=== PATIENT | male | born 1955 | race Caucasian/White ===

== ENCOUNTER 2017-12-08 17:14 | Observation (INO) ==
[2017-12-08 17:34] LABS: Appearance,Urine CLEAR (Clear); Blood, Urine 3+ (Negative); Color,Urine YELLOW (Yellow); Glucose,Urine (UA) Negative (Negative); Ketones,Urine TRACE (Negative); Leukocyte Esterase,Urine Negative (Negative); Microscopic, Urine URINE MICROSCOPIC (MICROSCOPIC); PH,Urine 5.5 (5.0-8.5); Protein,Urine TRACE (Negative); Specific Gravity, Urine 1.025 (1.005-1.030)
[2017-12-08 17:38] LABS: Bilirubin,Urine Negative (Negative)
--- NOTE | 2017-12-08 17:53 | Emergency Department Note ---
ED Disposition Clinical Impression: Colitis, Hypokalemia Disposition: Still a Patient Condition on Discharge: Fair Instructions: DI for Acute Abdomen - Critical Care Critical Care Time: No Attestation: On 12/08/17, the high probability of a clinically significant, sudden or life threatening deterioration of the following system(s) required my full and direct attention, intervention and personal management. The time I documented below is in addition to time spent performing reported procedures but includes the following listed in this critical care notation. Medical Decision Making - Geoff Inquiry Pt receiving controlled substance: Yes Geoff was queried for this patient: Yes Reference #:: [id number] Risks and benefits of using a controlled substance: were not discussed with pt by me Comment: 0 rxs. Vital Signs: 12/08/17 17:15 12/08/17 17:45 12/08/17 18:15 Temperature 98.5 F Temperature Source Oral Pulse Rate [Right Radial] 92 H 80 77 Respiratory Rate 24 26 H 26 H Blood Pressure [Right Arm] 143/99 146/78 132/65 Blood Pressure Mean [Right Arm] 113 100 87 Blood Pressure Source [Right Arm] Automatic Cuff Automatic Cuff Automatic Cuff Blood Pressure Position [Right Arm] Sitting Sitting 02 Sat by Pulse Oximetry 98 97 98 Oxygen Delivery Method Room Air Room Air Room Air 12/08/17 19:47 Temperature Temperature Source Pulse Rate [Right Radial] 74 Respiratory Rate 17 Blood Pressure [Right Arm] 130/80 Blood Pressure Mean [Right Arm] 96 Blood Pressure Source [Right Arm] Blood Pressure Position [Right Arm] 02 Sat by Pulse Oximetry 98 Oxygen Delivery Method Room Air - Lab Data Lab Results 12/08/17 17:28: Urine Color Yellow, Urine Appearance Clear, Urine pH 5.5, Ur Specific [place] 1.025, Urine Protein Trace, Urine Glucose (UA) Negative, Urine Ketones Trace, Urine Blood 3+, Urine Nitrate Negative, Urine Bilirubin Negative , Urine Urobilinogen 2.0, Ur Leukocyte Esterase Negative, Urine RBC 3-5, Urine WBC 3-5, Ur Squamous Epith Cells 3-5, Urine Bacteria 1+, Urine Mucus 4+ 12/08/17 17:40: WBC 6.6, RBC 5.87, Hgb 19.6 H*, Hct 58.2 H, MCV 99.0 H, MCH 33.1 H, MCHC 33.4, RDW 14.9, Plt Count 353, MPV 7.8, Neut % (Auto) 64.2, Lymph % (Auto) 24.2, [place] % (Auto) 9.3, Eos % (Auto) 1.6, Baso % (Auto) 0.8, Neut # ( Auto) 4.2, Lymph # (Auto) 1.6, [place] # (Auto) 0.6, Eos # (Auto) 0.1, Baso # (Auto ) 0.1 12/08/17 17:40: Sodium 138, Potassium 2.1 L*, Chloride 96 L, Carbon Dioxide 35 H , Anion Gap 9.1, BUN 11, Creatinine 0.92, Estimated Creat Clear 60, Estimated GFR 84, Est GFR ( Amer) 101, Glucose 134 H, Calcium 9.5, Total Bilirubin 1.2 H, AST 11 L, ALT 15, Alkaline Phosphatase 118 H, Total Protein 7.8, Albumin 3.5, Globulin 4.3 H, Albumin/Globulin Ratio 0.8 L, Lipase 181 Result diagrams: 12/08/17 17:40 12/08/17 17:40 Orders (Tests/Meds): ED MEDICATIONS Generic Name Dose Route Start Last Admin Trade Name Freq PRN Reason Stop Dose Admin Levofloxacin/Dextrose 750 mg in 150 mls @ 100 mls/hr 12/08/17 20:30 Levofloxacin 750mg/150ml Premix IV 12/22/17 20:29 Q24H MAMI Protocol Metronidazole 100 mls @ 100 mls/hr 12/08/17 20:30 Flagyl 500mg/100ml Ivpb IV 12/22/17 20:29 Q8H MAMI Protocol Discontinued Medications Generic Name Dose Route Start Last Admin Trade Name Freq PRN Reason Stop Dose Admin Potassium Chloride/Water 100 mls @ 50 mls/hr 12/08/17 18:22 12/08/17 18:23 Potassium Chloride 20meq/100ml Ivpb IV 12/08/17 20:21 50 mls/hr ONCE ONE Administration Iopamidol 75 ml 12/08/17 19:14 12/08/17 19:15 [id number]; 75ml Vial IV 12/08/17 19:15 75 ml ONCE ONE Administration Morphine Sulfate 4 mg 12/08/17 18:03 12/08/17 18:23 Morphine 4mg/Ml Syringe IV 12/08/17 18:04 4 mg ONCE ONE Administration Morphine Sulfate 4 mg 12/08/17 19:49 12/08/17 20:01 Morphine 4mg/Ml Syringe IV 12/08/17 19:50 4 mg ONCE ONE Administration Ondansetron HCl 4 mg 12/08/17 18:03 12/08/17 18:23 Zofran 4mg/2ml Vial IV 12/08/17 18:04 4 mg ONCE ONE Administration Ondansetron HCl 4 mg 12/08/17 19:49 12/08/17 20:01 Zofran 4mg/2ml Vial IV 12/08/17 19:50 4 mg ONCE ONE Administration Potassium Chloride/Water 20 meq 12/08/17 18:02 Potassium Chloride 20meq/100ml Ivpb IV 12/08/17 18:03 ONCE ONE Sodium Chloride 1,000 ml 12/08/17 18:02 12/08/17 18:23 Sod Chlor 0.9% 1000ml Bag IV 12/08/17 18:03 1,000 ml BOLUS ONE Administration Sodium Chloride 10 ml 12/08/17 19:14 12/08/17 19:15 Rad-Saline Flush 10ml Syringe IV 12/08/17 19:15 10 ml ONCE ONE Administration ORDERS Category Date Time Status CT abdomen pelvis w con Stat Cat Scan 12/08/17 18:03 Taken - CT Data CT Scan: Abdomen, Pelvis Time Received: 20:[address] Reviewed: Yes: I have viewed the radiologist's interpretation Findings Narrative: CT scan interpreted by [facility] radiologist. Faxed report received and reviewed: Moderate wall thickening of the mid and distal sigmoid colon, with minimal adjacent associated inflammatory stranding, most compatible with infectious, inflammatory colitis. Minimal diverticulitis possible. No perforation or abscess. - Physician Consults Physician Consulted: Nasra Time: 20:23 Reason -: Admission Comment/Response: Agrees to admit the patient to the hospital. We discussed the patient's clinical information, including history, exam, laboratory and radiology results and ED course. Per hospital procedure, I will write temporary bridge inpatient orders on the patient. Specific orders requested by the admitting physician: Antibiotics, IV fluids with potassium, recheck potassium in the morning General Adult HPI - General Chief complaint: Abdominal Pain Stated complaint: lower stomach Time Seen by Provider: 12/08/17 17:52 Mode of Arrival: Ambulatory Limitations: No Limitations Description of Symptoms (Recalled from ER Triage Doc. by RN): lower pelvic pain for 20 days bilaterally and more so on right. hasn't eating in 10 days. when he eats lower abd/pelvic hurts worse. also reports clumps of blood in stool. pt adds more complaints with each question he is asked about his history. - History of Present Illness HPI narrative: Suprapubic abdominal pain for 20 days. States unable to eat anything for 10 days. Pain radiates to his upper abdomen. Nausea but says that he cannot vomit because he does not have anything on his stomach. Difficulty urinating and having bowel movements. Says that when he does have bowel movements and has blood in it. No fever noted. States he does not have a PCP. He used to see Dr. Reynolds, but says that Dr. Reynolds is here in [place] and he lives in [place] and cannot get to him. - Related Data Allergies Allergy/AdvReac Type Severity Reaction Status Date / Time aspirin [ASPIRIN] Allergy Unknown UNKNOWN Verified 12/08/17 17:26 [facility] History I have reviewed the patient's past medical history: Yes - Social History Smoking Status: Current every day smoker Tobacco Type: cigarettes # Packs/Day (cigarettes): 2 Alcohol Intake: never - Psychiatric History Expresses thoughts of harming self/others: None Suicide Plan Description: No Plan ROS Obtained: Yes All systems reviewed & no additional complaints - Constitutional Constitutional: Denies fever(s), Reports poor appetite - Cardiovascular Cardiovascular: Denies chest pain - Respiratory Respiratory: No dyspnea - Gastrointestinal Gastrointestingal: Reports: abdominal pain, bright red blood in stools, nausea. Denies: vomiting - Genitourinary Male Genitourinary: Reports difficulty urinating Physical Exam - General General appearance: alert - Head Head exam: atraumatic, normocephalic, normal inspection - Eye Eye exam: Present: normal appearance, PERRL, EOMI - ENT ENT exam: Present: normal exam, normal oropharynx, mucous membranes moist, TM's normal bilaterally, normal external ear exam - Neck Neck exam: Present: normal inspection, full ROM, trachea midline. Absent: meningismus, lymphadenopathy - Chest Chest inspection: Present: normal inspection, symmetric chest wall rise. Absent : tenderness - Respiratory Respiratory exam: Present: normal lung sounds bilaterally. Absent: respiratory distress - Cardiovascular Cardiovascular exam: Present: regular rate, normal rhythm. Absent: JVD - Abdominal Exam Abdominal exam: Present: soft, tenderness, normal bowel sounds. Absent: distention, guarding Abdominal tenderness: Present: diffuse - Extremities Exam Extremities exam: Present: normal inspection, full ROM, normal capillary refill. Absent: calf tenderness - Back Exam Back exam: Present: normal inspection. Absent: tenderness - Neurological Exam Neurological exam: Present: alert, oriented X3 - Psychiatric Psychiatric exam: Present: normal affect, normal mood - Skin Skin exam: Present: warm, dry, intact, normal color
[2017-12-08 17:58] LABS: Basophils # 0.1 K/mm3 (0-0.2); Basophils % 0.8 % (0.1-2.0); Eosinophils # 0.1 K/mm3 (0.0-0.4); Eosinophils % 1.6 % (0.1-12.0); Hematocrit 58.2 % (42.0-52.0); Lymphocytes # 1.6 K/mm3 (0.7-4.5); Lymphocytes % 24.2 K/mm3 (10-50); Mean Corpuscular HGB Conc 33.4 g/dL (31.8-35.4); Mean Corpuscular Hemoglobin 33.1 pg (27.0-31.2); Mean Platelet Volume 7.8 fl (7.4-10.4); Monocytes # 0.6 K/mm3 (0.1-1.0); Monocytes % 9.3 % (1.7-9.3); Neutrophils # 4.2 K/mm3 (1.8-7.8); Neutrophils % 64.2 % (37.0-80.0); Platelet Count 353 K/mm3 (142-424); Red Blood Count 5.87 M/mm3 (4.60-6.20); Red Cell Distribution Width 14.9 % (11.5-17.5); White Blood Count 6.6 K/mm3 (4.8-10.8)
[2017-12-08 17:59] LABS: Albumin Level 3.5 gm/dL (3.4-5.0); Albumin/Globulin Ratio 0.8 (1.1-1.8); Anion Gap 9.1 mEq/L (5-15); Bilirubin,Total 1.2 mg/dL (0.2-1.0); Calcium 9.5 mg/dL (8.5-10.1); Globulin 4.3 gm/dl (1.3-3.2); Total Protein,Serum 7.8 gm/dL (6.4-8.2)
[2017-12-08 18:01] LABS: Potassium 2.1 mmoL/L (3.5-5.1)
[2017-12-08 18:06] LABS: Hemoglobin 19.6 g/dL (14.1-18.0)
[2017-12-08 18:31] LABS: Bacteria,Urine 1+ /lpf; Mucus,Urine 4+ /lpf
[2017-12-09 08:31] LABS: Anion Gap 6.6 mEq/L (5-15); Calcium 8.6 mg/dL (8.5-10.1)
[2017-12-09 08:44] LABS: Potassium 2.6 mmoL/L (3.5-5.1)
--- NOTE | 2017-12-09 08:47 | History & Physical Report ---
*Admission Date: 12/09/17 <Jessica Hawley 12/09/17 08:59> *Chief complaint: Abdominal pain <Jessica Hawley 12/09/17 08:59> *History of present illness: Mr. Lu is a 62-year-old male who presented to [facility] with worsening abdominal pain, nausea, and some vomiting. He states he has had the abdominal pain for about 20 days has been worse the last 10 days. Not been able to to eat for the last 10 days but is able to retain fluids. He has had a decrease in his urinary output. He states his bowels did move on 12/07/2017 and he has a small stool this a.m. He describes it as diarrhea. Denies having a fever or any upper respiratory symptoms. He describes hematochezia on occasion. He denies hematemesis. He has had an EGD and colonoscopy per Dr. Newton several years ago which did indicate hiatal hernia and diverticulosis. In the emergency room with evaluation with CT scan he was felt to have colitis and was admitted for further evaluation and treatment. Final reading of the CT scan is pending. This a.m. pain is better. Is not nauseated and has not vomited. He is taking clear liquids without difficulty. He states he has voided without problems since admission. <Jessica Hawley 12/09/17 09:06> [facility] History Medical History: Reports:: Chronic Obstructive Pulmonary Disease (COPD), Coronary Artery Disease, Depression, Gastroesophageal Reflux Disease(GERD), Hiatal Hernia, Migraine Denies:: Cancer, Diabetes Mellitus Type 1, Diabetes Mellitus Type 2, MRSA, Seizures <ChandanJessica 12/09/17 08:59> Other Medical History: Reports: Arthritis <HawleyJessica 12/09/17 08:59> Other Surgeries: Yes: No Previous Surgery <Jessica Hawley 12/09/17 08:59> Amputation: No <ChandanJessica 12/09/17 08:59> - *Social History Educational Level: Attended High School <Hawley,Jessica 12/09/17 08:59> Smoking Status: Current every day smoker <Jessica Hawley 12/09/17 08:59> Tobacco Type: cigarettes <Jessica Hawley 12/09/17 08:59> # Packs/Day (cigarettes): 2 <Jessica Hawley 12/09/17 08:59> #Yrs smoked (if former smoker): 45 <ChandanJessica 12/09/17 08:59> Alcohol Intake: current <Jessica Hawley 12/09/17 08:59> Alcohol Intake Frequency:: a few times a week <ChandanJessica Nichol 12/09/17 08:59> Occupational Status: disabled <HawleyJessica Nichol 12/09/17 08:59> Housing: apartment <ChandanJessica Gandara 12/09/17 08:59> Household Members: none <HawleyJessica Gandara 12/09/17 08:59> - Psychiatric History Expresses thoughts of harming self/others: None <Hawley,Jessica - 12/09/17 08: 59> Suicide Plan Description: No Plan <Hawley,Jessica 12/09/17 08:59> *Family Hx:: Unable to obtain (Patient does not know family history) <Jessica Hawley 12/09/17 08:59> Review of Systems - Constitutional Denies fever(s) <HawleyJessica 12/09/17 08:59> - ENT Denies dizziness, Denies ear pain, Denies nasal congestion, Denies sore throat <Hawley,Jessica 12/09/17 08:59> - *Cardiovascular Denies chest pain, Denies shortness of breath, Denies generalized swelling, Denies leg swelling <Jessica Hawley 12/09/17 08:59> - *Respiratory Reports cough, Denies shortness of breath <Hawley,Jessica 12/09/17 08:59> Comments: Daily sputum production <Hawley,Jessica 12/09/17 08:59> - *Gastrointestinal Reports abdominal pain, Reports change in bowel habits, Reports change in stools , Reports constipation, Reports nausea, Reports vomiting, Denies heartburn, Denies excessive passing of gas, Denies vomiting blood <Hawley,Jessica 08:59> - *Genitourinary Comments: Decrease in urinary output <Jessica Hawley 12/09/17 08:59> - *Musculoskeletal Reports joint pain <Jessica Hawley 12/09/17 08:59> Comments: Uses a cane at times for stability <Jesisca Hawley - 12/09/17 08:59> - *Neurologic Denies confusion, Denies seizure-like activity, Denies dizziness, Denies frequent falls <Jessica Hawley - 12/09/17 08:59> - Psychiatric Reports depression <Jessica Hawley Nichol 12/09/17 08:59> Meds Home Medications Medication Instructions Recorded Confirmed Type No Known Home Medications 12/09/17 12/09/17 History <NasraOtto Angel - 12/09/17 10:23> Allergies Allergy/AdvReac Type Severity Reaction Status Date / Time aspirin [ASPIRIN] Allergy Unknown UNKNOWN Verified 12/08/17 17:26 <Otto Hammonds - 12/09/17 10:23> Exam Vital signs and Labs for Last 24 Hours: Temp Pulse Resp BP Pulse Ox 97.9 F 76 18 121/90 93 L 12/09/17 08:00 12/09/17 08:00 12/09/17 08:00 12/09/17 08:00 12/09/17 08:00 Laboratory Results - last 24 hr 12/08/17 17:28: Urine Color Yellow, Urine Appearance Clear, Urine pH 5.5, Ur Specific [place] 1.025, Urine Protein Trace, Urine Glucose (UA) Negative, Urine Ketones Trace, Urine Blood 3+, Urine Nitrate Negative, Urine Bilirubin Negative , Urine Urobilinogen 2.0, Ur Leukocyte Esterase Negative, Urine RBC 3-5, Urine WBC 3-5, Ur Squamous Epith Cells 3-5, Urine Bacteria 1+, Urine Mucus 4+ 12/08/17 17:40: WBC 6.6, RBC 5.87, Hgb 19.6 H*, Hct 58.2 H, MCV 99.0 H, MCH 33.1 H, MCHC 33.4, RDW 14.9, Plt Count 353, MPV 7.8, Neut % (Auto) 64.2, Lymph % (Auto) 24.2, [place] % (Auto) 9.3, Eos % (Auto) 1.6, Baso % (Auto) 0.8, Neut # ( Auto) 4.2, Lymph # (Auto) 1.6, [place] # (Auto) 0.6, Eos # (Auto) 0.1, Baso # (Auto ) 0.1 12/08/17 17:40: Sodium 138, Potassium 2.1 L*, Chloride 96 L, Carbon Dioxide 35 H , Anion Gap 9.1, BUN 11, Creatinine 0.92, Estimated Creat Clear 60, Estimated GFR 84, Est GFR ( Amer) 101, Glucose 134 H, Calcium 9.5, Total Bilirubin 1.2 H, AST 11 L, ALT 15, Alkaline Phosphatase 118 H, Total Protein 7.8, Albumin 3.5, Globulin 4.3 H, Albumin/Globulin Ratio 0.8 L, Lipase 181 12/09/17 07:25: Sodium 137, Potassium 2.6 L* D, Chloride 100, Carbon Dioxide 33 H, Anion Gap 6.6, BUN 8 D, Creatinine 0.80, Estimated Creat Clear 60, Estimated GFR 98, Est GFR ( Amer) 119, Glucose 125 H, Calcium 8.6 <Otto Hammonds - 12/09/17 10:23> Temp Pulse Resp BP Pulse Ox 97.9 F 76 18 121/90 93 L 12/09/17 08:00 12/09/17 08:00 12/09/17 08:00 12/09/17 08:00 12/09/17 08:00 Laboratory Results - last 24 hr 12/08/17 17:28: Urine Color Yellow, Urine Appearance Clear, Urine pH 5.5, Ur Specific [place] 1.025, Urine Protein Trace, Urine Glucose (UA) Negative, Urine Ketones Trace, Urine Blood 3+, Urine Nitrate Negative, Urine Bilirubin Negative , Urine Urobilinogen 2.0, Ur Leukocyte Esterase Negative, Urine RBC 3-5, Urine WBC 3-5, Ur Squamous Epith Cells 3-5, Urine Bacteria 1+, Urine Mucus 4+ 12/08/17 17:40: WBC 6.6, RBC 5.87, Hgb 19.6 H*, Hct 58.2 H, MCV 99.0 H, MCH 33.1 H, MCHC 33.4, RDW 14.9, Plt Count 353, MPV 7.8, Neut % (Auto) 64.2, Lymph % (Auto) 24.2, [place] % (Auto) 9.3, Eos % (Auto) 1.6, Baso % (Auto) 0.8, Neut # ( Auto) 4.2, Lymph # (Auto) 1.6, [place] # (Auto) 0.6, Eos # (Auto) 0.1, Baso # (Auto ) 0.1 12/08/17 17:40: Sodium 138, Potassium 2.1 L*, Chloride 96 L, Carbon Dioxide 35 H , Anion Gap 9.1, BUN 11, Creatinine 0.92, Estimated Creat Clear 60, Estimated GFR 84, Est GFR ( Amer) 101, Glucose 134 H, Calcium 9.5, Total Bilirubin 1.2 H, AST 11 L, ALT 15, Alkaline Phosphatase 118 H, Total Protein 7.8, Albumin 3.5, Globulin 4.3 H, Albumin/Globulin Ratio 0.8 L, Lipase 181 <Jessica Hawley 12/09/17 08:59> I & O for Last 24 hours: Intake & Output 12/06/17 12/07/17 12/08/17 12/09/17 11:59 11:59 11:59 11:59 Intake Total 1440 / 1440 Balance 1440 / 1440 Weight 120 lb 7 oz <Otto Hammonds - 12/09/17 10:23> Intake & Output 12/06/17 12/07/17 12/08/17 12/09/17 11:59 11:59 11:59 11:59 Intake Total 1440 / 1440 Balance 1440 / 1440 Weight 120 lb 7 oz <Jessica Hawley 12/09/17 08:59> Radiology Reports for the Last 24 Hours: Results of CT of the abdomen and pelvis are pending <Jessica Hawley 12/09/17 08:59> - Constitutional no acute distress, thin <Jessica Hawley 12/09/17 08:59> Comments: Sitting up in the bed eating liquid diet. Appears comfortable <Jessica Hawley 12/09/17 08:59> - *Routine HEENT Exam Head: Present: normocephalic, atraumatic <Jessica Hawley 12/09/17 08:59> Eye: Present: PERRL <Jessica Hawley 12/09/17 08:59> ENT: Present: mucous membranes moist <Jessica Hawley 12/09/17 08:59> - *Routine Neck Exam Present: supple. Absent: carotid bruit, lymphadenopathy, thyromegaly <Jessica Hawley 12/09/17 08:59> - *Routine Respiratory Exam Present: CTA bilaterally (Anteriorly and posteriorly; diminished breath sounds posteriorly) <Jessica Hawley 12/09/17 08:59> - *Routine Cardiovascular Exam Present: RRR <Jessica Hawley 12/09/17 08:59> - *Routine Abdominal Exam Present: soft, normoactive bowel sounds, tenderness (Lower abdomen and right upper quadrant) <Jessica Hawley 12/09/17 08:59> - *Routine Extremities Exam Absent: edema, tenderness <Jessica Hawley 12/09/17 08:59> - *Routine Neurological Exam Present: alert, oriented X3 <Jessica Hawley 12/09/17 08:59> H&P: Result - Labs Labs: Short CBC 12/08/17 Range/Units 17:40 WBC 6.6 (4.8-10.8) K/mm3 Hgb 19.6 H* (14.1-18.0) g/dL Hct 58.2 H (42.0-52.0) % Plt Count 353 (142-424) K/mm3 [facility] 12/08/17 12/09/17 17:40 07:25 Sodium 138 137 Potassium 2.1 L* 2.6 L* D Chloride 96 L 100 Carbon Dioxide 35 H 33 H BUN 11 8 D Creatinine 0.92 0.80 Glucose 134 H 125 H Calcium 9.5 8.6 Liver Function 12/08/17 Range/Units 17:40 Total Bilirubin 1.2 H (0.2-1.0) mg/dL AST 11 L (15-37) U/L ALT 15 (12-78) U/L Alkaline Phosphatase 118 H (46-116) U/L Albumin 3.5 (3.4-5.0) gm/dL Urine 12/08/17 Range/Units 17:28 Urine Color Yellow (Yellow) Urine Appearance Clear (Clear) Urine pH 5.5 (5.0-8.5) Ur Specific [place] 1.025 (1.005-1.030) Urine Protein Trace (Negative) Urine Glucose (UA) Negative (Negative) <Otto Hammonds - 12/09/17 10:23> Short CBC 12/08/17 Range/Units 17:40 WBC 6.6 (4.8-10.8) K/mm3 Hgb 19.6 H* (14.1-18.0) g/dL Hct 58.2 H (42.0-52.0) % Plt Count 353 (142-424) K/mm3 BMP 12/08/17 17:40 Sodium 138 Potassium 2.1 L* Chloride 96 L Carbon Dioxide 35 H BUN 11 Creatinine 0.92 Glucose 134 H Calcium 9.5 Liver Function 12/08/17 Range/Units 17:40 Total Bilirubin 1.2 H (0.2-1.0) mg/dL AST 11 L (15-37) U/L ALT 15 (12-78) U/L Alkaline Phosphatase 118 H (46-116) U/L Albumin 3.5 (3.4-5.0) gm/dL Urine 12/08/17 Range/Units 17:28 Urine Color Yellow (Yellow) Urine Appearance Clear (Clear) Urine pH 5.5 (5.0-8.5) Ur Specific [place] 1.025 (1.005-1.030) Urine Protein Trace (Negative) Urine Glucose (UA) Negative (Negative) <ChandanJessica - 12/09/17 08:59> Assessment and Plan (1) Colitis Current visit: Yes Status: Acute Category: Medical Code(s): K52.9 - Noninfective gastroenteritis and colitis, unspecified (2) Hypokalemia Current visit: Yes Status: Acute Category: Medical Code(s): E87.6 - Hypokalemia (3) Tobacco abuse Current visit: Yes Status: Chronic Category: Medical Code(s): Z72.0 - Tobacco use (4) COPD (chronic obstructive pulmonary disease) Current visit: Yes Status: Chronic Category: Medical Code(s): J44.9 - Chronic obstructive pulmonary disease, unspecified (5) Polycythemia Current visit: Yes Status: Chronic Category: Medical Code(s): D75.1 - Secondary polycythemia <Otto Hammonds - 12/09/17 10:23> (1) Colitis Current visit: Yes Status: Acute Category: Medical Code(s): K52.9 - Noninfective gastroenteritis and colitis, unspecified (2) Hypokalemia Current visit: Yes Status: Acute Category: Medical Code(s): E87.6 - Hypokalemia (3) Tobacco abuse Current visit: Yes Status: Chronic Category: Medical Code(s): Z72.0 - Tobacco use (4) COPD (chronic obstructive pulmonary disease) Current visit: Yes Status: Chronic Category: Medical Code(s): J44.9 - Chronic obstructive pulmonary disease, unspecified <Jessica Hawley - 12/09/17 09:05> - Assessment and plan all Dx Assessment and Plan for all problems:: Patient seen and examined. Appears comfortable. Polycythemia likely related to his COPD and hemoconcentration. Will repeat CBC in AM after additional hydration. Serum K+ has improved to 2.6. Will continue oral replacement of KCL. Maintain clear liquid diet and continue current antibiotics for his colitis. <Otto Hammonds - 12/09/17 10:23> Labs and CT results are pending. We will continue with GI rest and IV fluids for now since patient is feeling better. <Jessica Hawley - 12/09/17 08:59>
--- NOTE | 2017-12-09 11:40 | Pharmacy Consult Notes ---
[facility] Pharmacy VTE Monitoring - Patient Demographics Admission date: 12/08/17 Report Date: 12/09/17 Time: 11:40 Allergies/Adverse Reactions: Patient Allergies aspirin [ASPIRIN] Allergy (Unknown, Verified 12/08/17 17:26) UNKNOWN Height: 1.63 m Weight: 54.63 kg Patient Problems: Current Active Problems Colitis (Acute) Hypokalemia (Acute) Tobacco abuse (Chronic) COPD (chronic obstructive pulmonary disease) (Chronic) Polycythemia (Chronic) - VTE Risk Labs: VTE Related Lab Results Hgb 19.6 g/dL (14.1-18.0) H* 12/08/17 17:40 Hct 58.2 % (42.0-52.0) H 12/08/17 17:40 Plt Count 353 K/mm3 (142-424) 12/08/17 17:40 BUN 8 mg/dL (7-18) D 12/09/17 07:25 Creatinine 0.80 mg/dL (0.70-1.30) 12/09/17 07:25 Estimated Creat Clear 60 mL/min (0-300) 12/09/17 07:25 Was VTE Risk Assessment Performed: Yes VTE Score: 3 VTE Risk Level: Low Risk - Prophylaxis VTE Prophylaxis Ordered?: Yes Types of VTE Prophylaxis: TEDS Knee High Location of Applied Device: Bilateral Lower Extremeties
[2017-12-10 06:50] LABS: Basophils % 0.2 % (0.1-2.0); Eosinophils # 0.1 K/mm3 (0.0-0.4); Eosinophils % 0.8 % (0.1-12.0); Hematocrit 48.4 % (42.0-52.0); Lymphocytes # 0.4 K/mm3 (0.7-4.5); Lymphocytes % 3.7 K/mm3 (10-50); Mean Corpuscular HGB Conc 33.1 g/dL (31.8-35.4); Mean Corpuscular Hemoglobin 33.6 pg (27.0-31.2); Mean Corpuscular Volume 101.5 fl (80-94); Mean Platelet Volume 7.9 fl (7.4-10.4); Monocytes # 0.5 K/mm3 (0.1-1.0); Monocytes % 4.5 % (1.7-9.3); Neutrophils # 9.8 K/mm3 (1.8-7.8); Neutrophils % 90.8 % (37.0-80.0); Platelet Count 288 K/mm3 (142-424); Red Blood Count 4.77 M/mm3 (4.60-6.20); Red Cell Distribution Width 14.5 % (11.5-17.5); White Blood Count 10.8 K/mm3 (4.8-10.8)
[2017-12-10 07:05] LABS: Anion Gap 12.8 mEq/L (5-15); Calcium 8.3 mg/dL (8.5-10.1); Potassium 3.8 mmoL/L (3.5-5.1)
--- NOTE | 2017-12-10 08:22 | Progress Note ---
<Tiffanie Dela Cruz - Last Filed: 12/10/17 08:19> Internal Medicine - PN: Subj *Date: 12/10/17 *Time: 08:19 Interval history: Pt states he is having severe lower abdominal pain today. He states in the middle of the night he had an episode of diarrhea and his stomach has been cramping ever since. He states the pain medicine is not helping. He has also been more short of breath and wants his inhalers. Exam Vital signs and Labs for Last 24 Hours: Temp Pulse Resp BP Pulse Ox 98.0 F 62 16 131/79 98 12/10/17 04:00 12/10/17 04:00 12/10/17 04:00 12/10/17 04:00 12/10/17 04:00 Laboratory Results - last 24 hr 12/09/17 07:25: Sodium 137, Potassium 2.6 L* D, Chloride 100, Carbon Dioxide 33 H, Anion Gap 6.6, BUN 8 D, Creatinine 0.80, Estimated Creat Clear 60, Estimated GFR 98, Est GFR ( Amer) 119, Glucose 125 H, Calcium 8.6 12/10/17 06:35: WBC 10.8 D, RBC 4.77, Hgb 16.0, Hct 48.4, MCV 101.5 H, MCH 33.6 H, MCHC 33.1, RDW 14.5, Plt Count 288, MPV 7.9, Neut % (Auto) 90.8 H, Lymph % (Auto) 3.7 L, [place] % (Auto) 4.5, Eos % (Auto) 0.8, Baso % (Auto) 0.2, Neut # (Auto) 9.8 H, Lymph # (Auto) 0.4 L, [place] # (Auto) 0.5, Eos # (Auto) 0.1, Baso # (Auto) 0.0 12/10/17 06:35: Sodium 138, Potassium 3.8 D, Chloride 105, Carbon Dioxide 24 D , Anion Gap 12.8, BUN 6 L, Creatinine 0.73, Estimated Creat Clear 60, Estimated GFR 109, Est GFR ( Amer) 132, Glucose 101, Calcium 8.3 L I & O for Last 24 hours: Intake & Output 12/07/17 12/08/17 12/09/17 12/10/17 11:59 11:59 11:59 11:59 Intake Total 1440 / 1440 1873 / 1873 Output Total 200 / 200 Balance 1440 / 1440 1673 / 1673 Weight 120 lb 7 oz 120 lb 7.016 oz - Constitutional no acute distress - *Routine Respiratory Exam Present: decreased breath sounds - *Routine Cardiovascular Exam Present: RRR - *Routine Abdominal Exam Present: soft, normoactive bowel sounds, tenderness (lower abdomen) - *Routine Extremities Exam Absent: edema Assessment and Plan (1) Colitis Current visit: Yes Status: Acute Category: Medical Code(s): K52.9 - Noninfective gastroenteritis and colitis, unspecified (2) Hypokalemia Current visit: Yes Status: Acute Category: Medical Code(s): E87.6 - Hypokalemia (3) Tobacco abuse Current visit: Yes Status: Chronic Category: Medical Code(s): Z72.0 - Tobacco use (4) COPD (chronic obstructive pulmonary disease) Current visit: Yes Status: Chronic Category: Medical Code(s): J44.9 - Chronic obstructive pulmonary disease, unspecified (5) Polycythemia Current visit: Yes Status: Chronic Category: Medical Code(s): D75.1 - Secondary polycythemia - Assessment and plan all Dx Assessment and Plan for all problems:: Will start on dilaudid and duonebs. Will continue to monitor. <Otto Hammonds - Last Filed: 12/10/17 13:26> Internal Medicine - PN: Subj *Date: 12/10/17 *Time: 13:08 Exam Vital signs and Labs for Last 24 Hours: Temp Pulse Resp BP Pulse Ox 98.5 F 83 18 138/86 98 12/10/17 08:00 12/10/17 11:29 12/10/17 08:00 12/10/17 08:00 12/10/17 11:29 Laboratory Results - last 24 hr 12/10/17 06:35: WBC 10.8 D, RBC 4.77, Hgb 16.0, Hct 48.4, MCV 101.5 H, MCH 33.6 H, MCHC 33.1, RDW 14.5, Plt Count 288, MPV 7.9, Neut % (Auto) 90.8 H, Lymph % (Auto) 3.7 L, [place] % (Auto) 4.5, Eos % (Auto) 0.8, Baso % (Auto) 0.2, Neut # (Auto) 9.8 H, Lymph # (Auto) 0.4 L, [place] # (Auto) 0.5, Eos # (Auto) 0.1, Baso # (Auto) 0.0, Total Counted 100, Neutrophils % (Manual) 91 H, Lymphocytes % (Manual) 1 L, Monocytes % (Manual) 8, Platelet Estimate Normal, Macrocytosis 1 +, Tear Drop Cells 1+ 12/10/17 06:35: Sodium 138, Potassium 3.8 D, Chloride 105, Carbon Dioxide 24 D , Anion Gap 12.8, BUN 6 L, Creatinine 0.73, Estimated Creat Clear 60, Estimated GFR 109, Est GFR ( Amer) 132, Glucose 101, Calcium 8.3 L I & O for Last 24 hours: Intake & Output 12/08/17 12/09/17 12/10/17 12/11/17 11:59 11:59 11:59 11:59 Intake Total 1440 / 1440 2112 Output Total 200 / 200 Balance 1440 / 1440 1912 / 1912 Weight 120 lb 7 oz 120 lb 7.016 oz Assessment and Plan (1) Colitis Current visit: Yes Status: Acute Category: Medical Code(s): K52.9 - Noninfective gastroenteritis and colitis, unspecified (2) Hypokalemia Current visit: Yes Status: Acute Category: Medical Code(s): E87.6 - Hypokalemia (3) Tobacco abuse Current visit: Yes Status: Chronic Category: Medical Code(s): Z72.0 - Tobacco use (4) COPD (chronic obstructive pulmonary disease) Current visit: Yes Status: Chronic Category: Medical Code(s): J44.9 - Chronic obstructive pulmonary disease, unspecified (5) Polycythemia Current visit: Yes Status: Chronic Category: Medical Code(s): D75.1 - Secondary polycythemia - Assessment and plan all Dx Assessment and Plan for all problems:: Patient seen and examined. C/o increased pain. No blood in stool. Tolerating liquid diet. Serum K+ now normal. Abdominal exam is about the same. Will change to Dilsudid for pain control and continue current antibiotics.
[2017-12-10 10:29] LABS: Lymphocytes % 1 % (10-50); Monocytes % 8 % (2-9); Neutrophils % 91 % (42-76); Total Cells Counted 100
[2017-12-10 10:31] LABS: Macrocytosis 1+
[2017-12-10 10:33] LABS: Tear Drop Cells 1+
--- NOTE | 2017-12-11 08:16 | Progress Note ---
<Tiffanie Dela Cruz - Last Filed: 12/11/17 08:14> Internal Medicine - PN: Subj *Date: 12/11/17 *Time: 08:14 Interval history: Patient states he feels slightly better today. He is still having lower abdominal pain and has gas pain. He is having diarrhea. He is tolerating a clear liquid diet. He states the new pain medicine is working better. Exam Vital signs and Labs for Last 24 Hours: Temp Pulse Resp BP Pulse Ox 98.3 F 88 18 127/86 97 12/11/17 08:00 12/11/17 08:00 12/11/17 08:00 12/11/17 08:00 12/11/17 08:00 Laboratory Results - last 24 hr 12/10/17 06:35: Total Counted 100, Neutrophils % (Manual) 91 H, Lymphocytes % ( Manual) 1 L, Monocytes % (Manual) 8, Platelet Estimate Normal, Macrocytosis 1+, Tear Drop Cells 1+ I & O for Last 24 hours: Intake & Output 12/08/17 12/09/17 12/10/17 12/11/17 11:59 11:59 11:59 11:59 Intake Total 1440 / 1440 2363 / 2363 3426 / 3426 Output Total 200 / 200 650 / 650 Balance 1440 / 1440 2163 / 2163 2776 / 2776 Weight 120 lb 7 oz 120 lb 7.016 oz - Constitutional no acute distress - *Routine Respiratory Exam Present: CTA bilaterally - *Routine Cardiovascular Exam Present: RRR - *Routine Abdominal Exam Present: soft, normoactive bowel sounds, tenderness (lower abdomen) - *Routine Extremities Exam Absent: edema Assessment and Plan (1) Colitis Current visit: Yes Status: Acute Category: Medical Code(s): K52.9 - Noninfective gastroenteritis and colitis, unspecified (2) Hypokalemia Current visit: Yes Status: Acute Category: Medical Code(s): E87.6 - Hypokalemia (3) Tobacco abuse Current visit: Yes Status: Chronic Category: Medical Code(s): Z72.0 - Tobacco use (4) COPD (chronic obstructive pulmonary disease) Current visit: Yes Status: Chronic Category: Medical Code(s): J44.9 - Chronic obstructive pulmonary disease, unspecified (5) Polycythemia Current visit: Yes Status: Chronic Category: Medical Code(s): D75.1 - Secondary polycythemia - Assessment and plan all Dx Assessment and Plan for all problems:: We will continue current care. <NasraOtto Ortiz - Last Filed: 12/11/17 17:09> Internal Medicine - PN: Subj *Date: 12/11/17 *Time: 17:08 Exam Vital signs and Labs for Last 24 Hours: Temp Pulse Resp BP Pulse Ox 98.8 F 66 20 115/63 100 12/11/17 16:00 12/11/17 16:00 12/11/17 16:00 12/11/17 16:00 12/11/17 16:00 I & O for Last 24 hours: Intake & Output 12/09/17 12/10/17 12/11/17 12/12/17 11:59 11:59 11:59 11:59 Intake Total 1440 / 1440 2363 / 2363 4992 / 4992 240 / 240 Output Total 200 / 200 650 / 650 Balance 1440 / 1440 2163 / 2163 4342 / 4342 240 / 240 Weight 120 lb 7 oz 120 lb 7.016 oz Assessment and Plan (1) Colitis Current visit: Yes Status: Acute Category: Medical Code(s): K52.9 - Noninfective gastroenteritis and colitis, unspecified (2) Hypokalemia Current visit: Yes Status: Acute Category: Medical Code(s): E87.6 - Hypokalemia (3) Tobacco abuse Current visit: Yes Status: Chronic Category: Medical Code(s): Z72.0 - Tobacco use (4) COPD (chronic obstructive pulmonary disease) Current visit: Yes Status: Chronic Category: Medical Code(s): J44.9 - Chronic obstructive pulmonary disease, unspecified (5) Polycythemia Current visit: Yes Status: Chronic Category: Medical Code(s): D75.1 - Secondary polycythemia - Assessment and plan all Dx Assessment and Plan for all problems:: Patient seen and examined. He appear comfortable. States he had 2 diarrheal stools yesterday and one this morning. He feels hungry. Will advance diet. Wean pain meds. Repeat labs in AM. Possibly home tomorrow.
[2017-12-12 06:47] LABS: Basophils % 0.3 % (0.1-2.0); Eosinophils # 0.1 K/mm3 (0.0-0.4); Eosinophils % 1.1 % (0.1-12.0); Hematocrit 46.9 % (42.0-52.0); Hemoglobin 15.2 g/dL (14.1-18.0); Lymphocytes # 1.2 K/mm3 (0.7-4.5); Lymphocytes % 19.6 K/mm3 (10-50); Mean Corpuscular HGB Conc 32.4 g/dL (31.8-35.4); Mean Corpuscular Hemoglobin 33.7 pg (27.0-31.2); Mean Corpuscular Volume 103.8 fl (80-94); Mean Platelet Volume 7.9 fl (7.4-10.4); Monocytes # 0.8 K/mm3 (0.1-1.0); Monocytes % 12.8 % (1.7-9.3); Neutrophils % 66.2 % (37.0-80.0); Platelet Count 282 K/mm3 (142-424); Red Blood Count 4.52 M/mm3 (4.60-6.20); Red Cell Distribution Width 15.1 % (11.5-17.5)
[2017-12-12 07:00] LABS: Albumin Level 2.3 gm/dL (3.4-5.0); Albumin/Globulin Ratio 0.7 (1.1-1.8); Anion Gap 10.8 mEq/L (5-15); Bilirubin,Total 0.5 mg/dL (0.2-1.0); Calcium 8.3 mg/dL (8.5-10.1); Globulin 3.3 gm/dl (1.3-3.2); Potassium 4.8 mmoL/L (3.5-5.1); Total Protein,Serum 5.6 gm/dL (6.4-8.2)
--- NOTE | 2017-12-12 08:07 | Progress Note ---
<Tiffanie Dela Cruz - Last Filed: 12/12/17 08:05> Internal Medicine - PN: Subj *Date: 12/12/17 *Time: 08:05 Interval history: Pt is feeling a little better today. Stools are starting to be more formed. He has tolerated his diet. He states his pain comes and goes and is mostly in his lower abdomen. He did not rest well last night. He has been nauseated but unable to vomit. Exam Vital signs and Labs for Last 24 Hours: Temp Pulse Resp BP Pulse Ox 97.9 F 79 18 130/74 99 12/12/17 07:41 12/12/17 07:41 12/12/17 07:41 12/12/17 07:41 12/12/17 07:41 Laboratory Results - last 24 hr 12/12/17 06:20: WBC 6.0 D, RBC 4.52 L, Hgb 15.2, Hct 46.9, MCV 103.8 H, MCH 33.7 H, MCHC 32.4, RDW 15.1, Plt Count 282, MPV 7.9, Neut % (Auto) 66.2, Lymph % (Auto) 19.6, [place] % (Auto) 12.8 H, Eos % (Auto) 1.1, Baso % (Auto) 0.3, Neut # (Auto) 4.0, Lymph # (Auto) 1.2, [place] # (Auto) 0.8, Eos # (Auto) 0.1, Baso # ( Auto) 0.0 12/12/17 06:20: Sodium 137, Potassium 4.8 D, Chloride 107, Carbon Dioxide 24, Anion Gap 10.8, BUN 4 L D, Creatinine 0.66 L, Estimated Creat Clear 60, Estimated GFR 123, Est GFR ( Amer) 148, Glucose 102, Calcium 8.3 L, Total Bilirubin 0.5, AST 12 L, ALT 13, Alkaline Phosphatase 74, Total Protein 5.6 L D, Albumin 2.3 L, Globulin 3.3 H, Albumin/Globulin Ratio 0.7 L I & O for Last 24 hours: Intake & Output 12/09/17 12/10/17 12/11/17 12/12/17 11:59 11:59 11:59 11:59 Intake Total 1440 / 1440 2363 / 2363 5017 / 5017 2939 / 2939 Output Total 200 / 200 650 / 650 Balance 1440 / 1440 2163 / 2163 4367 / 4367 2939 / 2939 Weight 120 lb 7 oz 120 lb 7.016 oz - Constitutional no acute distress - *Routine Respiratory Exam Present: CTA bilaterally - *Routine Cardiovascular Exam Present: RRR - *Routine Abdominal Exam Present: soft, normoactive bowel sounds, tenderness (lower abdomen) - *Routine Extremities Exam Absent: edema Assessment and Plan (1) Colitis Current visit: Yes Status: Acute Category: Medical Code(s): K52.9 - Noninfective gastroenteritis and colitis, unspecified (2) Hypokalemia Current visit: Yes Status: Resolved Category: Medical Code(s): E87.6 - Hypokalemia (3) Tobacco abuse Current visit: Yes Status: Chronic Category: Medical Code(s): Z72.0 - Tobacco use (4) COPD (chronic obstructive pulmonary disease) Current visit: Yes Status: Chronic Category: Medical Code(s): J44.9 - Chronic obstructive pulmonary disease, unspecified (5) Polycythemia Current visit: Yes Status: Chronic Category: Medical Code(s): D75.1 - Secondary polycythemia - Assessment and plan all Dx Assessment and Plan for all problems:: Patient is slowly improving. Electrolytes have normalized. Will discuss further care with Dr. Hammonds. <Otto Hammonds - Last Filed: 12/12/17 08:25> Internal Medicine - PN: Subj *Date: 12/12/17 *Time: 08:23 Exam Vital signs and Labs for Last 24 Hours: Temp Pulse Resp BP Pulse Ox 97.9 F 79 18 130/74 99 12/12/17 07:41 12/12/17 07:41 12/12/17 07:41 12/12/17 07:41 12/12/17 07:41 Laboratory Results - last 24 hr 12/12/17 06:20: WBC 6.0 D, RBC 4.52 L, Hgb 15.2, Hct 46.9, MCV 103.8 H, MCH 33.7 H, MCHC 32.4, RDW 15.1, Plt Count 282, MPV 7.9, Neut % (Auto) 66.2, Lymph % (Auto) 19.6, [place] % (Auto) 12.8 H, Eos % (Auto) 1.1, Baso % (Auto) 0.3, Neut # (Auto) 4.0, Lymph # (Auto) 1.2, [place] # (Auto) 0.8, Eos # (Auto) 0.1, Baso # ( Auto) 0.0 12/12/17 06:20: Sodium 137, Potassium 4.8 D, Chloride 107, Carbon Dioxide 24, Anion Gap 10.8, BUN 4 L D, Creatinine 0.66 L, Estimated Creat Clear 60, Estimated GFR 123, Est GFR ( Amer) 148, Glucose 102, Calcium 8.3 L, Total Bilirubin 0.5, AST 12 L, ALT 13, Alkaline Phosphatase 74, Total Protein 5.6 L D, Albumin 2.3 L, Globulin 3.3 H, Albumin/Globulin Ratio 0.7 L I & O for Last 24 hours: Intake & Output 12/09/17 12/10/17 12/11/17 12/12/17 11:59 11:59 11:59 11:59 Intake Total 1440 / 1440 2363 / 2363 5017 / 5017 2939 / 2939 Output Total 200 / 200 650 / 650 Balance 1440 / 1440 2163 / 2163 4367 / 4367 2939 / 2939 Weight 120 lb 7 oz 120 lb 7.016 oz Assessment and Plan (1) Colitis Current visit: Yes Status: Acute Category: Medical Code(s): K52.9 - Noninfective gastroenteritis and colitis, unspecified (2) Hypokalemia Current visit: Yes Status: Resolved Category: Medical Code(s): E87.6 - Hypokalemia (3) Tobacco abuse Current visit: Yes Status: Chronic Category: Medical Code(s): Z72.0 - Tobacco use (4) COPD (chronic obstructive pulmonary disease) Current visit: Yes Status: Chronic Category: Medical Code(s): J44.9 - Chronic obstructive pulmonary disease, unspecified (5) Polycythemia Current visit: Yes Status: Chronic Category: Medical Code(s): D75.1 - Secondary polycythemia - Assessment and plan all Dx Assessment and Plan for all problems:: Patient seen and examined. Seems to be tolerating his diet. Abdomen with localized tenderness in LLQ; nondistended with active BS. Labs are improving. Will check plain abdominal films today. Stop KCl supplement and decrease IVF.
--- NOTE | 2017-12-12 14:28 | Progress Note ---
Internal Medicine - PN: Subj *Date: 12/12/17 *Time: 14:28 Exam Vital signs and Labs for Last 24 Hours: Temp Pulse Resp BP Pulse Ox 97.9 F 79 18 130/74 99 12/12/17 07:41 12/12/17 07:41 12/12/17 07:41 12/12/17 07:41 12/12/17 07:41 Laboratory Results - last 24 hr 12/12/17 06:20: WBC 6.0 D, RBC 4.52 L, Hgb 15.2, Hct 46.9, MCV 103.8 H, MCH 33.7 H, MCHC 32.4, RDW 15.1, Plt Count 282, MPV 7.9, Neut % (Auto) 66.2, Lymph % (Auto) 19.6, [place] % (Auto) 12.8 H, Eos % (Auto) 1.1, Baso % (Auto) 0.3, Neut # (Auto) 4.0, Lymph # (Auto) 1.2, [place] # (Auto) 0.8, Eos # (Auto) 0.1, Baso # ( Auto) 0.0 12/12/17 06:20: Sodium 137, Potassium 4.8 D, Chloride 107, Carbon Dioxide 24, Anion Gap 10.8, BUN 4 L D, Creatinine 0.66 L, Estimated Creat Clear 60, Estimated GFR 123, Est GFR ( Amer) 148, Glucose 102, Calcium 8.3 L, Total Bilirubin 0.5, AST 12 L, ALT 13, Alkaline Phosphatase 74, Total Protein 5.6 L D, Albumin 2.3 L, Globulin 3.3 H, Albumin/Globulin Ratio 0.7 L I & O for Last 24 hours: Intake & Output 12/09/17 12/10/17 12/11/17 12/12/17 23:59 23:59 23:59 23:59 Intake Total 3463 / 3463 3311 / 3311 3496 / 3496 1849 / 1849 Output Total 450 / 450 400 / 400 350 / 350 Balance 3463 / 3463 2861 / 2861 3096 / 3096 1499 / 1499 Weight 54.63 kg Assessment and Plan (1) Colitis Current visit: Yes Status: Acute Category: Medical Code(s): K52.9 - Noninfective gastroenteritis and colitis, unspecified (2) Hypokalemia Current visit: Yes Status: Resolved Category: Medical Code(s): E87.6 - Hypokalemia (3) Tobacco abuse Current visit: Yes Status: Chronic Category: Medical Code(s): Z72.0 - Tobacco use (4) COPD (chronic obstructive pulmonary disease) Current visit: Yes Status: Chronic Category: Medical Code(s): J44.9 - Chronic obstructive pulmonary disease, unspecified (5) Polycythemia Current visit: Yes Status: Chronic Category: Medical Code(s): D75.1 - Secondary polycythemia The patient's infection will respond to the chosen ABx?: Yes Is the patient receiving the right drug, dose, and route?: Yes Could a more targeted ABx be ordered?: No
--- NOTE | 2017-12-13 08:48 | Progress Note ---
Internal Medicine - PN: Subj *Date: 12/13/17 *Time: 08:45 Interval history: He states his abdominal pain is about the same. He is requesting pain medication about every 4 hours on schedule. He also complains of some nausea. No vomiting. He is eating some but states that food makes his stomach hurt more. He is also reporting some difficulty with urination. Exam Vital signs and Labs for Last 24 Hours: Temp Pulse Resp BP Pulse Ox 99.3 F 55 L 18 149/76 95 12/13/17 07:50 12/13/17 07:50 12/13/17 07:50 12/13/17 07:50 12/13/17 08:00 Laboratory Results - last 24 hr 12/12/17 22:00: Stl Aeromonas (PCR) Not detected, Stl C. cayetanensis PCR Not detected, Stool Rotavirus (PCR) Not detected, Stl Adenov F 40/41 PCR Not detected, Stool Astrovirus (PCR) Not detected, Stool Campylobacter PCR Not detected, Stl C.difficile Tox PCR Not detected, Stool Cryptosporidium PCR Not detected, Stl E.coli Shiga Tox PCR Not detected, Stool E coli O157 PCR Not detected, Stl Enterotoxigenic E PCR Not detected, Stool EPEC (PCR) Not detected , Stool EAEC (PCR) Not detected, Stl E. histolytica PCR Not detected, Stool Giardia Lamblia PCR Not detected, Stool Salmonella PCR Not detected, Stool Sapovirus (PCR) Not detected, Stl P. shigelloides PCR Not detected, Stl Shigella /EIEC PCR Not detected, St Y.enterocolitica PCR Not detected, Stool Vibrio (PCR ) Not detected, Stl Vibrio cholerae PCR Not detected, Stl Norovirus GI/GII PCR Not detected I & O for Last 24 hours: Intake & Output 12/10/17 12/11/17 12/12/17 12/13/17 11:59 11:59 11:59 11:59 Intake Total 2363 / 2363 5017 / 5017 3189 / 3189 2000 Output Total 200 / 200 650 / 650 975 / 975 Balance 2163 / 2163 4367 / 4367 3189 / 3189 1026 / 1026 Weight 120 lb 7.016 oz Narrative: He is sitting up in bed. He appears a bit uncomfortable with no acute distress. Chest reveals coarse breath sounds. No rales or wheezes. Heart is regular with no murmurs. Abdomen is soft and slightly distended. Bowel sounds are present but decreased. There is moderate left lower quadrant tenderness to palpation. Assessment and Plan (1) Colitis Current visit: Yes Status: Acute Category: Medical Code(s): K52.9 - Noninfective gastroenteritis and colitis, unspecified (2) Hypokalemia Current visit: Yes Status: Resolved Category: Medical Code(s): E87.6 - Hypokalemia (3) Tobacco abuse Current visit: Yes Status: Chronic Category: Medical Code(s): Z72.0 - Tobacco use (4) COPD (chronic obstructive pulmonary disease) Current visit: Yes Status: Chronic Category: Medical Code(s): J44.9 - Chronic obstructive pulmonary disease, unspecified (5) Polycythemia Current visit: Yes Status: Chronic Category: Medical Code(s): D75.1 - Secondary polycythemia - Assessment and plan all Dx Assessment and Plan for all problems:: His blood work is improved. Repeat plain films yesterday appeared to show the colitis to be resolving. However clinically his symptoms are about the same. We will continue with current treatment. If no significant proven by tomorrow, we will plan to repeat his CT scan. Obtain stool sample for diarrhea panel.
[2017-12-14 05:58] LABS: Basophils % 0.6 % (0.1-2.0); Eosinophils # 0.1 K/mm3 (0.0-0.4); Eosinophils % 2.1 % (0.1-12.0); Hematocrit 46.9 % (42.0-52.0); Hemoglobin 15.4 g/dL (14.1-18.0); Lymphocytes # 1.1 K/mm3 (0.7-4.5); Lymphocytes % 26.3 K/mm3 (10-50); Mean Corpuscular HGB Conc 32.8 g/dL (31.8-35.4); Mean Corpuscular Hemoglobin 33.6 pg (27.0-31.2); Mean Corpuscular Volume 102.6 fl (80-94); Mean Platelet Volume 7.3 fl (7.4-10.4); Monocytes # 0.5 K/mm3 (0.1-1.0); Monocytes % 12.4 % (1.7-9.3); Neutrophils # 2.5 K/mm3 (1.8-7.8); Neutrophils % 58.6 % (37.0-80.0); Platelet Count 297 K/mm3 (142-424); Red Blood Count 4.57 M/mm3 (4.60-6.20); White Blood Count 4.2 K/mm3 (4.8-10.8)
[2017-12-14 06:15] LABS: Albumin Level 2.4 gm/dL (3.4-5.0); Albumin/Globulin Ratio 0.8 (1.1-1.8); Anion Gap 13.4 mEq/L (5-15); Bilirubin,Total 0.4 mg/dL (0.2-1.0); Calcium 8.5 mg/dL (8.5-10.1); Globulin 3.2 gm/dl (1.3-3.2); Potassium 4.4 mmoL/L (3.5-5.1); Total Protein,Serum 5.6 gm/dL (6.4-8.2)
--- NOTE | 2017-12-14 08:02 | Progress Note ---
<Jessica Hawley - Last Filed: 12/14/17 07:59> Internal Medicine - PN: Subj *Date: 12/14/17 *Time: 07:59 Interval history: He slept at intervals. Continues to require pain medicine as scheduled for abdominal pain. He states he had diarrhea 2 during the night once a large quantity. He also vomited last evening. He states the nausea comes on suddenly. He ate about his breakfast this morning and thus far has retained. He also states he has some heartburn. He is voiding but has difficulty emptying his bladder. He denies chest pain and shortness of breath. Breathing treatments help his wheezing. Exam Vital signs and Labs for Last 24 Hours: Temp Pulse Resp BP Pulse Ox 98.3 F 70 18 128/70 94 L 12/14/17 07:40 12/14/17 07:40 12/14/17 07:40 12/14/17 07:40 12/14/17 07:40 Laboratory Results - last 24 hr 12/14/17 05:38: WBC 4.2 L D, RBC 4.57 L, Hgb 15.4, Hct 46.9, MCV 102.6 H, MCH 33.6 H, MCHC 32.8, RDW 15.0, Plt Count 297, MPV 7.3 L, Neut % (Auto) 58.6, Lymph % (Auto) 26.3, [place] % (Auto) 12.4 H, Eos % (Auto) 2.1, Baso % (Auto) 0.6, Neut # (Auto) 2.5, Lymph # (Auto) 1.1, [place] # (Auto) 0.5, Eos # (Auto) 0.1, Baso # (Auto) 0.0 12/14/17 05:38: Sodium 139, Potassium 4.4, Chloride 106, Carbon Dioxide 24, Anion Gap 13.4, BUN 6 L D, Creatinine 0.67 L, Estimated Creat Clear 60, Estimated GFR 121, Est GFR ( Amer) 146, Glucose 107 H, Calcium 8.5, Total Bilirubin 0.4, AST 14 L, ALT 14, Alkaline Phosphatase 71, Total Protein 5.6 L, Albumin 2.4 L, Globulin 3.2, Albumin/Globulin Ratio 0.8 L I & O for Last 24 hours: Intake & Output 07/20/18 12/12/17 12/13/17 12/14/17 11:59 11:59 11:59 11:59 Intake Total 5017 / 5017 3189 / 3189 2251 / 2251 2449 / 2449 Output Total 650 / 650 975 / 975 1400 / 1400 Balance 4367 / 4367 3189 / 3189 1276 / 1276 1049 / 1049 - Constitutional no acute distress Comments: Appears comfortable lying in his bed. - *Routine Respiratory Exam Comments: Soft scattered expiratory wheezing bilaterally - *Routine Cardiovascular Exam Present: RRR - *Routine Abdominal Exam Present: soft, normoactive bowel sounds, tenderness Comments: Diffusely tender in all lower quadrants - *Routine Extremities Exam Absent: edema, calf tenderness - *Routine Neurological Exam Present: alert, oriented X3 Assessment and Plan (1) Colitis Current visit: Yes Status: Acute Category: Medical Code(s): K52.9 - Noninfective gastroenteritis and colitis, unspecified (2) Hypokalemia Current visit: Yes Status: Resolved Category: Medical Code(s): E87.6 - Hypokalemia (3) Tobacco abuse Current visit: Yes Status: Chronic Category: Medical Code(s): Z72.0 - Tobacco use (4) COPD (chronic obstructive pulmonary disease) Current visit: Yes Status: Chronic Category: Medical Code(s): J44.9 - Chronic obstructive pulmonary disease, unspecified (5) Polycythemia Current visit: Yes Status: Chronic Category: Medical Code(s): D75.1 - Secondary polycythemia (6) GERD (gastroesophageal reflux disease) Current visit: Yes Status: Acute Category: Medical Code(s): K21.9 - Gastro -esophageal reflux disease without esophagitis - Assessment and plan all Dx Assessment and Plan for all problems:: Patient continues to require Dilaudid on a regular basis. He continues to complain of abdominal pain, nausea vomiting, and diarrhea. Will repeat CT scan of the abdomen/pelvis today. Will start Protonix <Otto Hammonds - Last Filed: 12/14/17 08:17> Internal Medicine - PN: Subj *Date: 12/14/17 *Time: 08:15 Exam Vital signs and Labs for Last 24 Hours: Temp Pulse Resp BP Pulse Ox 98.3 F 70 18 128/70 94 L 12/14/17 07:40 12/14/17 07:40 12/14/17 07:40 12/14/17 07:40 12/14/17 07:40 Laboratory Results - last 24 hr 12/14/17 05:38: WBC 4.2 L D, RBC 4.57 L, Hgb 15.4, Hct 46.9, MCV 102.6 H, MCH 33.6 H, MCHC 32.8, RDW 15.0, Plt Count 297, MPV 7.3 L, Neut % (Auto) 58.6, Lymph % (Auto) 26.3, [place] % (Auto) 12.4 H, Eos % (Auto) 2.1, Baso % (Auto) 0.6, Neut # (Auto) 2.5, Lymph # (Auto) 1.1, [place] # (Auto) 0.5, Eos # (Auto) 0.1, Baso # (Auto) 0.0 12/14/17 05:38: Sodium 139, Potassium 4.4, Chloride 106, Carbon Dioxide 24, Anion Gap 13.4, BUN 6 L D, Creatinine 0.67 L, Estimated Creat Clear 60, Estimated GFR 121, Est GFR ( Amer) 146, Glucose 107 H, Calcium 8.5, Total Bilirubin 0.4, AST 14 L, ALT 14, Alkaline Phosphatase 71, Total Protein 5.6 L, Albumin 2.4 L, Globulin 3.2, Albumin/Globulin Ratio 0.8 L I & O for Last 24 hours: Intake & Output 12/11/17 12/12/17 12/13/17 12/14/17 11:59 11:59 11:59 11:59 Intake Total 5017 / 5017 3189 / 3189 2251 / 2251 2449 / 2449 Output Total 650 / 650 975 / 975 1400 / 1400 Balance 4367 / 4367 3189 / 3189 1276 / 1276 1049 / 1049 Assessment and Plan (1) Colitis Current visit: Yes Status: Acute Category: Medical Code(s): K52.9 - Noninfective gastroenteritis and colitis, unspecified (2) Hypokalemia Current visit: Yes Status: Resolved Category: Medical Code(s): E87.6 - Hypokalemia (3) Tobacco abuse Current visit: Yes Status: Chronic Category: Medical Code(s): Z72.0 - Tobacco use (4) COPD (chronic obstructive pulmonary disease) Current visit: Yes Status: Chronic Category: Medical Code(s): J44.9 - Chronic obstructive pulmonary disease, unspecified (5) Polycythemia Current visit: Yes Status: Chronic Category: Medical Code(s): D75.1 - Secondary polycythemia (6) GERD (gastroesophageal reflux disease) Current visit: Yes Status: Acute Category: Medical Code(s): K21.9 - Gastro -esophageal reflux disease without esophagitis - Assessment and plan all Dx Assessment and Plan for all problems:: Patient seen and examined. Concur with plan and will consult Dr. Castellon for GI input as patient does not seem to be improving as expected.
--- NOTE | 2017-12-14 10:02 | Consult Report ---
*Admission Date: 12/08/17 *Chief complaint: ABD pain/change in bowel habit *History of present illness: Mr. Lu is a 62-year-old male who presented to [facility] with worsening abdominal pain, nausea, and some vomiting. He states he has had the abdominal pain for about 20 days has been worse the last 10 days. Not been able to to eat for the last 10 days but is able to retain fluids. He has had a decrease in his urinary output. He did report change in bowel habit with previous constipation changing to diarrhea prior to admission. He describes hematochezia on occasion. He denies hematemesis. He has had an EGD and colonoscopy per Dr. Newton several years ago which did indicate hiatal hernia and diverticulosis. In the emergency room with evaluation with CT scan he was felt to have colitis and was admitted for further evaluation and treatment. He did have thickening of the sigmoid colon and was admitted and started on Levaquin and Flagyl for the past 3-4 days. He did have neg PCR stool panel. He is TTP in low ABD and reports no improvement with diarrhea. He denies hematochezia today but reports mucus in stool. [facility] History Medical History: Reports:: Chronic Obstructive Pulmonary Disease (COPD), Coronary Artery Disease, Depression, Gastroesophageal Reflux Disease(GERD), Hiatal Hernia, Migraine Denies:: Cancer, Diabetes Mellitus Type 1, Diabetes Mellitus Type 2, MRSA, Seizures Other Medical History: Reports: Arthritis Other Surgeries: Yes: No Previous Surgery Amputation: No - *Social History Educational Level: Attended High School Smoking Status: Current every day smoker Tobacco Type: cigarettes # Packs/Day (cigarettes): 2 #Yrs smoked (if former smoker): 45 Alcohol Intake: current Alcohol Intake Frequency:: a few times a week Occupational Status: disabled Housing: apartment Household Members: none - Psychiatric History Expresses thoughts of harming self/others: None Suicide Plan Description: No Plan Pschychiatric History:: Reports:: Depression *Family Hx:: Unable to obtain (Patient does not know family history) Review of Systems - Review of Systems Review of systems:: pertinent systems reviewed and negative unless documented below - Constitutional Reports fatigue, Reports malaise - *Gastrointestinal Reports abdominal pain, Reports change in bowel habits, Reports loose stools, Reports heartburn, Reports nausea, Reports vomiting - *Genitourinary Reports difficulty urinating - *Neurologic Denies confusion, Denies seizure-like activity, Denies dizziness, Denies frequent falls Meds Home Medications Medication Instructions Recorded Confirmed Type No Known Home Medications 12/09/17 12/09/17 History Allergies Allergy/AdvReac Type Severity Reaction Status Date / Time aspirin [ASPIRIN] Allergy Unknown UNKNOWN Verified 12/08/17 17:26 Exam Vital signs and Labs for Last 24 Hours: Temp Pulse Resp BP Pulse Ox 98.3 F 70 18 128/70 94 L 12/14/17 07:40 12/14/17 07:40 12/14/17 07:40 12/14/17 07:40 12/14/17 07:40 Laboratory Results - last 24 hr 12/14/17 05:38: WBC 4.2 L D, RBC 4.57 L, Hgb 15.4, Hct 46.9, MCV 102.6 H, MCH 33.6 H, MCHC 32.8, RDW 15.0, Plt Count 297, MPV 7.3 L, Neut % (Auto) 58.6, Lymph % (Auto) 26.3, [place] % (Auto) 12.4 H, Eos % (Auto) 2.1, Baso % (Auto) 0.6, Neut # (Auto) 2.5, Lymph # (Auto) 1.1, Ness # (Auto) 0.5, Eos # (Auto) 0.1, Baso # (Auto) 0.0 12/14/17 05:38: Sodium 139, Potassium 4.4, Chloride 106, Carbon Dioxide 24, Anion Gap 13.4, BUN 6 L D, Creatinine 0.67 L, Estimated Creat Clear 60, Estimated GFR 121, Est GFR ( Amer) 146, Glucose 107 H, Calcium 8.5, Total Bilirubin 0.4, AST 14 L, ALT 14, Alkaline Phosphatase 71, Total Protein 5.6 L, Albumin 2.4 L, Globulin 3.2, Albumin/Globulin Ratio 0.8 L I & O for Last 24 hours: Intake & Output 12/11/17 12/12/17 12/13/17 12/14/17 23:59 23:59 23:59 23:59 Intake Total 3496 / 3496 2809 / 2809 2892 / 2892 738 / 738 Output Total 400 / 400 675 / 675 1500 / 1500 200 / 200 Balance 3096 / 3096 2134 / 2134 1392 / 1392 538 / 538 - Constitutional no acute distress - *Routine Cardiovascular Exam Present: RRR - *Routine Abdominal Exam Present: soft, tenderness, guarding Internal Medicine - CN: Reslt - Labs CBC & Chem 7: 12/14/17 05:38 12/14/17 05:38 Labs: Short CBC 12/14/17 Range/Units 05:38 WBC 4.2 L D (4.8-10.8) K/mm3 Hgb 15.4 (14.1-18.0) g/dL Hct 46.9 (42.0-52.0) % Plt Count 297 (142-424) K/mm3 BMP 12/14/17 05:38 Sodium 139 Potassium 4.4 Chloride 106 Carbon Dioxide 24 BUN 6 L D Creatinine 0.67 L Glucose 107 H Calcium 8.5 Liver Function 12/14/17 Range/Units 05:38 Total Bilirubin 0.4 (0.2-1.0) mg/dL AST 14 L (15-37) U/L ALT 14 (12-78) U/L Alkaline Phosphatase 71 (46-116) U/L Albumin 2.4 L (3.4-5.0) gm/dL Assessment and Plan (1) Colitis Current visit: Yes Status: Acute Category: Medical Code(s): K52.9 - Noninfective gastroenteritis and colitis, unspecified (2) Hypokalemia Current visit: Yes Status: Resolved Category: Medical Code(s): E87.6 - Hypokalemia (3) Tobacco abuse Current visit: Yes Status: Chronic Category: Medical Code(s): Z72.0 - Tobacco use (4) COPD (chronic obstructive pulmonary disease) Current visit: Yes Status: Chronic Category: Medical Code(s): J44.9 - Chronic obstructive pulmonary disease, unspecified (5) Polycythemia Current visit: Yes Status: Chronic Category: Medical Code(s): D75.1 - Secondary polycythemia (6) GERD (gastroesophageal reflux disease) Current visit: Yes Status: Acute Category: Medical Code(s): K21.9 - Gastro -esophageal reflux disease without esophagitis - Assessment and plan all Dx Assessment and Plan for all problems:: Discussed with Dr. Castellon and given pt is not improving with ABX will plan for Flex Sigmoidoscopy today. Keep pt NPO. Pt to have repeat CT imaging today. continue hydration and ABX therapy until procedure.
--- NOTE | 2017-12-14 15:57 | Procedure Note ---
[facility] Procedure Note Procedure Note:: Flexible Sigmoidoscopy Procedure Report: Sigmoidoscopy with cold biopsies Endoscopist: Boubacar Castellon II, MD Referring physician: Angel Hammonds MD Date of Procedure: December 14, 2017 Equipment: Olympus 180 variable stiffness pediatric colonoscope Sedation: MAC sedation Indication: Mr. uL is a 62-year-old gentleman who presents with progressively worsening lower abdominal pain, nausea and vomiting. He has had this for almost 3 weeks but this has worsened over the last 7-10 days. He did not have a bowel movement on December 07, 2017 but has had progression towards diarrhea. He had a colonoscopy years ago with Dr. Eduin Newton and was found to have diverticulosis. His CAT scan showed evidence of colitis with diffuse edematous wall thickening throughout the sigmoid colon extending into the proximal rectum with some pericolic stranding and there were scattered diverticuli. There was also evidence of probable minor small bowel ileus and there was some borderline bladder wall thickening. The patient did have 2 stool gastrointestinal PCR panels showing no microbial infection of the bowels. He has normal liver and pancreatic chemistries. He does note mucus with his bowel movement. The patient does not have leukocytosis or fever. He reports no rectal bleeding or family history colon cancer. Procedure: Prior to the procedure, a history and physical exam was performed, and patient' s medications and allergies were reviewed. The risks, benefits and alternatives of the sedation and procedure were discussed with the patient. All questions were answered and informed consent was obtained. The patient was brought to the procedure room. Patient identification and proposed procedure were verified by the physician and the nurse. The patient was placed in a left lateral decubitus position and the scope was passed under direct vision. Throughout the procedure, the patient's blood pressure, pulse, and oxygen saturations were monitored continuously. The colonoscopy was accomplished without difficulty. The patient tolerated the procedure well. Findings: On digital rectal examination there is normal rectal tone. There were no external hemorrhoids. The scope was then inserted through the anal canal into the rectum and advanced to 45 cm. The scope was not advanced further due to poor preparation. There was no evidence of colitis identified. There was diverticular disease in the descending and sigmoid colon but no haustral edema. There was a sigmoid colon polyp that was biopsied. Cold biopsies were taken from the sigmoid colon randomly to rule out microscopic colitis. Upon retroflexion within the rectum there were grade 1 internal hemorrhoids. Impression: 1. Sigmoid colon polyp 2. Left-sided diverticulosis 3. Grade 1 internal hemorrhoids Plan: There was no evidence of sigmoid colitis. The patient's PCR panel was negative for microbial enteritis. I do feel that the patient does have diverticulitis versus enterocolitis (nonspecific microbial). I would recommend dietary measures, probiotic, antibiotics and antispasmodics. The patient will require full colonoscopy at some point to assess for additional colonic polyps.
--- NOTE | 2017-12-15 07:46 | Progress Note ---
<Jessica Hawley - Last Filed: 12/15/17 07:51> Internal Medicine - PN: Subj *Date: 12/15/17 *Time: 07:51 Interval history: Patient states that he did not sleep last night. Continues to have abdominal pain. He has required pain medicine every 4 hours. He denies nausea and states he did not vomit any further. He had one diarrhea stool this a.m. He describes the stool as liquid and brown. GERD is better. Patient states he has been ambulating in the room. Per nursing: When checked on throughout the night patient was sound asleep. He only ambulates to the bathroom. They do not feel he is truthful about his pain. Exam Vital signs and Labs for Last 24 Hours: Temp Pulse Resp BP Pulse Ox 98.5 F 74 18 132/71 95 12/15/17 04:00 12/15/17 04:00 12/15/17 04:00 12/15/17 04:00 12/15/17 04:00 I & O for Last 24 hours: Intake & Output 12/12/17 12/13/17 12/14/17 12/15/17 11:59 11:59 11:59 11:59 Intake Total 3189 / 3189 2251 / 2251 2599 / 2599 2088 / 2088 Output Total 975 / 975 1400 / 1400 300 / 300 Balance 3189 / 3189 1276 / 1276 1199 / 1199 1788 / 1788 Weight 125 lb 9 oz Radiology Reports for the Last 24 Hours: CT of abdomen and pelvis 12/14/2017 IMPRESSION 1. Persistent prominent sigmoid colitis with no unremarkable improvement since December 08 CT Persistent prominent edematous wall thickening seen throughout the long segment of sigmoid colon a persistent ( up to roughly 14 cm length). Hazy appearance stranding about this inflamed segment. . numerous mildly thickened diverticulum are seen along anterior aspect inflamed sigmoid colon. Some tics appear mildly inflamed but I favor we are viewing persistent colitis most likely. Although secondary diverticulitis Could develop in this setting. 2. Rapid transit of oral contrast given today noted-has passed entire large & small bowel by 2 h.. This likely reflects diarrhea. 3.. Increased fluid throughout the small bowel possibly reflects associated enteritis.. But no significant bowel dilatation. 4.. Cystitis likely present.. Diffuse thickening urinary bladder wall - Constitutional no acute distress Comments: Sitting on bedside getting ready to eat breakfast. Appears comfortable. - *Routine Respiratory Exam Comments: Few scattered soft wheezes bilaterally - *Routine Abdominal Exam Present: soft, normoactive bowel sounds Comments: States abdomen feels full. - *Routine Extremities Exam Absent: edema, calf tenderness - *Routine Neurological Exam Present: alert, oriented X3 Assessment and Plan (1) Colitis Current visit: Yes Status: Acute Category: Medical Code(s): K52.9 - Noninfective gastroenteritis and colitis, unspecified (2) Hypokalemia Current visit: Yes Status: Resolved Category: Medical Code(s): E87.6 - Hypokalemia (3) Tobacco abuse Current visit: Yes Status: Chronic Category: Medical Code(s): Z72.0 - Tobacco use (4) COPD (chronic obstructive pulmonary disease) Current visit: Yes Status: Chronic Category: Medical Code(s): J44.9 - Chronic obstructive pulmonary disease, unspecified (5) Polycythemia Current visit: Yes Status: Chronic Category: Medical Code(s): D75.1 - Secondary polycythemia (6) GERD (gastroesophageal reflux disease) Current visit: Yes Status: Acute Category: Medical Code(s): K21.9 - Gastro -esophageal reflux disease without esophagitis (7) Diverticulitis Current visit: Yes Status: Acute Category: Medical Code(s): K57.92 - Diverticulitis of intestine, part unspecified, without perforation or abscess without bleeding - Assessment and plan all Dx Assessment and Plan for all problems:: CT of abdomen and pelvis showed no improvement. Notes per gastroenterology noted and appreciated. Patient still complains of routine, severe abdominal pain. Probiotic and anti-spasmodic meds have been started. Ambulation encouraged. <Otto Hammonds - Last Filed: 12/15/17 09:02> Internal Medicine - PN: Subj *Date: 12/15/17 *Time: 08:59 Exam Vital signs and Labs for Last 24 Hours: Temp Pulse Resp BP Pulse Ox 98.7 F 96 H 18 120/82 97 12/15/17 08:00 12/15/17 08:00 12/15/17 08:00 12/15/17 08:00 12/15/17 08:00 I & O for Last 24 hours: Intake & Output 07/2112/13/17 12/14/17 12/15/17 11:59 11:59 11:59 11:59 Intake Total 3189 / 3189 2251 / 2251 2599 / 2599 2448 / 2448 Output Total 975 / 975 1400 / 1400 300 / 300 Balance 3189 / 3189 1276 / 1276 1199 / 1199 2148 / 2148 Weight 125 lb 9 oz Assessment and Plan (1) Diverticulitis Current visit: Yes Status: Acute Category: Medical Code(s): K57.92 - Diverticulitis of intestine, part unspecified, without perforation or abscess without bleeding (2) Hypokalemia Current visit: Yes Status: Resolved Category: Medical Code(s): E87.6 - Hypokalemia (3) Tobacco abuse Current visit: Yes Status: Chronic Category: Medical Code(s): Z72.0 - Tobacco use (4) COPD (chronic obstructive pulmonary disease) Current visit: Yes Status: Chronic Category: Medical Code(s): J44.9 - Chronic obstructive pulmonary disease, unspecified (5) Polycythemia Current visit: Yes Status: Chronic Category: Medical Code(s): D75.1 - Secondary polycythemia (6) GERD (gastroesophageal reflux disease) Current visit: Yes Status: Acute Category: Medical Code(s): K21.9 - Gastro -esophageal reflux disease without esophagitis - Assessment and plan all Dx Assessment and Plan for all problems:: Patient seen and examined. He still complains of constant pain but on exam does not seem as tender. Dr. Castellon consult noted so appears to have diverticulitis. New medicaiton recommendations started yesterday. Will wean pain meds today and give dose of Solumedrol. Probably ready for discharge tomorrow.
--- NOTE | 2017-12-16 07:59 | Progress Note ---
<Jessica Hawley - Last Filed: 12/16/17 07:56> Internal Medicine - PN: Subj *Date: 12/16/17 *Time: 07:56 Interval history: Patient states he feels better. He wants to go home. He has required less pain medicine since yesterday. Although he is waiting for shot now for pain rating 8 out of 10. He states pain does not go below 6 he ate better yesterday without nausea. He has had 4 stools since yesterday, none during the night and none so far this a.m. He has noticed some formed stool. He has been up in the room more. Exam Vital signs and Labs for Last 24 Hours: Temp Pulse Resp BP Pulse Ox 98.4 F 57 L 16 103/51 97 12/16/17 04:00 12/16/17 04:00 12/16/17 04:00 12/16/17 04:00 12/16/17 04:00 Laboratory Results - last 24 hr 12/15/17 13:30: Stl Aeromonas (PCR) Not detected, Stl C. cayetanensis PCR Not detected, Stool Rotavirus (PCR) Not detected, Stl Adenov F 40/41 PCR Not detected, Stool Astrovirus (PCR) Not detected, Stool Campylobacter PCR Not detected, Stl C.difficile Tox PCR Not detected, Stool Cryptosporidium PCR Not detected, Stl E.coli Shiga Tox PCR Not detected, Stool E coli O157 PCR Not detected, Stl Enterotoxigenic E PCR Not detected, Stool EPEC (PCR) Not detected , Stool EAEC (PCR) Not detected, Stl E. histolytica PCR Not detected, Stool Giardia Lamblia PCR Not detected, Stool Salmonella PCR Not detected, Stool Sapovirus (PCR) Not detected, Stl P. shigelloides PCR Not detected, Stl Shigella /EIEC PCR Not detected, St Y.enterocolitica PCR Not detected, Stool Vibrio (PCR ) Not detected, Stl Vibrio cholerae PCR Not detected, Stl Norovirus GI/GII PCR Not detected I & O for Last 24 hours: Intake & Output 12/13/17 12/14/17 12/15/17 12/16/17 11:59 11:59 11:59 11:59 Intake Total 2251 / 2251 2599 / 2599 2598 / 2598 1407 / 1407 Output Total 975 / 975 1400 / 1400 300 / 300 Balance 1276 / 1276 1199 / 1199 2298 / 2298 1407 / 1407 Weight 125 lb 9 oz - Constitutional no acute distress Comments: Sitting up on the bedside eating his breakfast. He appears comfortable. - *Routine Respiratory Exam Present: CTA bilaterally (Anteriorly and posteriorly) - *Routine Cardiovascular Exam Present: RRR - *Routine Abdominal Exam Present: soft, normoactive bowel sounds, tenderness (In lower quadrants) - *Routine Extremities Exam Absent: edema - *Routine Neurological Exam Present: alert, oriented X3 Assessment and Plan (1) Diverticulitis Current visit: Yes Status: Acute Category: Medical Code(s): K57.92 - Diverticulitis of intestine, part unspecified, without perforation or abscess without bleeding (2) Hypokalemia Current visit: Yes Status: Resolved Category: Medical Code(s): E87.6 - Hypokalemia (3) Tobacco abuse Current visit: Yes Status: Chronic Category: Medical Code(s): Z72.0 - Tobacco use (4) COPD (chronic obstructive pulmonary disease) Current visit: Yes Status: Chronic Category: Medical Code(s): J44.9 - Chronic obstructive pulmonary disease, unspecified (5) Polycythemia Current visit: Yes Status: Chronic Category: Medical Code(s): D75.1 - Secondary polycythemia (6) GERD (gastroesophageal reflux disease) Current visit: Yes Status: Acute Category: Medical Code(s): K21.9 - Gastro -esophageal reflux disease without esophagitis - Assessment and plan all Dx Assessment and Plan for all problems:: Patient is ready to be discharged to home. <Otto Hammonds - Last Filed: 12/16/17 08:57> Internal Medicine - PN: Subj *Date: 12/16/17 *Time: 08:56 Exam Vital signs and Labs for Last 24 Hours: Temp Pulse Resp BP Pulse Ox 97.8 F 66 18 115/73 94 L 12/16/17 08:00 12/16/17 08:00 12/16/17 08:00 12/16/17 08:00 12/16/17 08:00 Laboratory Results - last 24 hr 12/15/17 13:30: Stl Aeromonas (PCR) Not detected, Stl C. cayetanensis PCR Not detected, Stool Rotavirus (PCR) Not detected, Stl Adenov F 40/41 PCR Not detected, Stool Astrovirus (PCR) Not detected, Stool Campylobacter PCR Not detected, Stl C.difficile Tox PCR Not detected, Stool Cryptosporidium PCR Not detected, Stl E.coli Shiga Tox PCR Not detected, Stool E coli O157 PCR Not detected, Stl Enterotoxigenic E PCR Not detected, Stool EPEC (PCR) Not detected , Stool EAEC (PCR) Not detected, Stl E. histolytica PCR Not detected, Stool Giardia Lamblia PCR Not detected, Stool Salmonella PCR Not detected, Stool Sapovirus (PCR) Not detected, Stl P. shigelloides PCR Not detected, Stl Shigella /EIEC PCR Not detected, St Y.enterocolitica PCR Not detected, Stool Vibrio (PCR ) Not detected, Stl Vibrio cholerae PCR Not detected, Stl Norovirus GI/GII PCR Not detected I & O for Last 24 hours: Intake & Output 12/13/17 12/14/17 12/15/17 12/16/17 11:59 11:59 11:59 11:59 Intake Total 2251 / 2251 2599 / 2599 2598 / 2598 1767 / 1767 Output Total 975 / 975 1400 / 1400 300 / 300 Balance 1276 / 1276 1199 / 1199 2298 / 2298 1767 / 1767 Weight 125 lb 9 oz Assessment and Plan (1) Diverticulitis Current visit: Yes Status: Acute Category: Medical Code(s): K57.92 - Diverticulitis of intestine, part unspecified, without perforation or abscess without bleeding (2) Hypokalemia Current visit: Yes Status: Resolved Category: Medical Code(s): E87.6 - Hypokalemia (3) Tobacco abuse Current visit: Yes Status: Chronic Category: Medical Code(s): Z72.0 - Tobacco use (4) COPD (chronic obstructive pulmonary disease) Current visit: Yes Status: Chronic Category: Medical Code(s): J44.9 - Chronic obstructive pulmonary disease, unspecified (5) Polycythemia Current visit: Yes Status: Chronic Category: Medical Code(s): D75.1 - Secondary polycythemia (6) GERD (gastroesophageal reflux disease) Current visit: Yes Status: Acute Category: Medical Code(s): K21.9 - Gastro -esophageal reflux disease without esophagitis - Assessment and plan all Dx Assessment and Plan for all problems:: Feeling much better. He is stable for discharge and will f/u with Dr. Castellon as outpt
--- NOTE | 2017-12-17 11:38 | Discharge Summary ---
General - General Admission date:: 12/08/17 <Otto Hammonds - 12/24/17 14:02> 12/08/17 <Tiffanie Dela Cruz - 12/17/17 11:51> Discharge date: 12/16/17 <Tiffanie Dela Cruz - 12/17/17 11:51> HPI HPI: Mr. Lu is a 62-year-old male who presented to [facility] with worsening abdominal pain, nausea, and some vomiting. He states he has had the abdominal pain for about 20 days has been worse the last 10 days. Not been able to to eat for the last 10 days but is able to retain fluids. He has had a decrease in his urinary output. He states his bowels did move on 12/07/2017 and he has a small stool this a.m. He describes it as diarrhea. Denies having a fever or any upper respiratory symptoms. He describes hematochezia on occasion. He denies hematemesis. He has had an EGD and colonoscopy per Dr. Newton several years ago which did indicate hiatal hernia and diverticulosis. In the emergency room with evaluation with CT scan he was felt to have colitis and was admitted for further evaluation and treatment. Final reading of the CT scan is pending. This a.m. pain is better. Is not nauseated and has not vomited. He is taking clear liquids without difficulty. He states he has voided without problems since admission. <Tiffanie Dela Cruz - 12/17/17 11:51> Hospital Course Hospital Course: His inital CT showed moderate inflammatory colitis of the sigmoid colon and possibly a mild cystitis. He was started on abx for his colitis and was placed on GI rest. He was given pain medication and antiemetics. The patient had polycythemia likely related to his COPD and hemoconcentration. His CBC improved after additional hydration. His potassium was low but improved with supplementation. He complained the patient medication was not helping his pain after he had an episode of diarrhea and severe stomach cramping. His morphine was changed to dilaudid and this seemed to work better. He continued with abdominal cramps and diarrhea. A diarrhea panel was normal. He had an acute abdominal series showing colitis/enteritis but no obstruction or bowel dilatation. He had a repeat CT of the abdomen showing persistent sigmoid colitis without improvement. GI was consulted and the patient was seen by Michelle. She recommended a Flex Sigmoidoscopy. Dr. Castellon performed this and found a sigmoid colon polyp, left-sided diverticulosis, and grade 1 internal hemorrhoids. There was no evidence of sigmoid colitis. He felt the patient had a diverticulitis versus enterocolitis (nonspecific microbial). He recommended dietary measures, probiotics, antibiotics, and antispasmodics. He also recommended a full colonoscopy outpatient to assess for additional colonic polyps. The patient was started on the recommended medications and was also given a dose of steroids. His pain medication was weaned and his diet was advanced. He was stable to be discharged home and will f/u with Dr. Castellon. <Tiffanie Dela Cruz - 12/17/17 11:51> Objective Vital signs: Temp Pulse Resp BP Pulse Ox 97.8 F 66 18 115/73 94 L 12/16/17 08:00 12/16/17 08:00 12/16/17 08:00 12/16/17 08:00 12/16/17 08:00 <Otto Hammonds - 12/24/17 14:02> Temp Pulse Resp BP Pulse Ox 97.8 F 66 18 115/73 94 L 12/16/17 08:00 12/16/17 08:00 12/16/17 08:00 12/16/17 08:00 12/16/17 08:00 <Tiffanie Dela Cruz - 12/17/17 11:51> Narrative: - Constitutional no acute distress, thin Comments: Sitting up in the bed eating liquid diet. Appears comfortable - *Routine HEENT Exam Head: Present: normocephalic, atraumatic Eye: Present: PERRL ENT: Present: mucous membranes moist - *Routine Neck Exam Present: supple. Absent: carotid bruit, lymphadenopathy, thyromegaly - *Routine Respiratory Exam Present: CTA bilaterally (Anteriorly and posteriorly; diminished breath sounds posteriorly) - *Routine Cardiovascular Exam Present: RRR - *Routine Abdominal Exam Present: soft, normoactive bowel sounds, tenderness (Lower abdomen and right upper quadrant) - *Routine Extremities Exam Absent: edema, tenderness - *Routine Neurological Exam Present: alert, oriented X3 <Tiffanie Dela Cruz - 12/17/17 11:51> DS: Diagnosis - Discharge Diagnosis (1) Diverticulitis Status: Acute (2) Hypokalemia Status: Resolved (3) Tobacco abuse Status: Chronic (4) COPD (chronic obstructive pulmonary disease) Status: Chronic (5) Polycythemia Status: Chronic (6) GERD (gastroesophageal reflux disease) Status: Acute <Tiffanie Dela Cruz - 12/17/17 11:34> (1) Diverticulitis Status: Acute (2) Hypokalemia Status: Resolved (3) Tobacco abuse Status: Chronic (4) COPD (chronic obstructive pulmonary disease) Status: Chronic (5) Polycythemia Status: Chronic (6) GERD (gastroesophageal reflux disease) Status: Acute <Otto Hammonds - 12/24/17 14:02> Discharge Plan - Patient Discharge Instructions ACTIVITY: Continue current activity <Tiffanie Dela Cruz - 12/17/17 11:51> DIET: other (Diverticular diet) <Tiffanie Dela Cruz - 12/17/17 11:51> Patient Instructions: Low-Fiber/Low-Residue Diet, DI for Hypokalemia < Otto Hammonds - 12/24/17 14:02> Forms: <Otto Hammonds - 12/24/17 14:02> - Follow up Plan Follow up with: Boubacar Castellon MD [Staff Physician] - 12/28/17 <Otto Hammonds - 12/24/17 14:02> Disposition: Home, Self-Care <Otto Hammonds - 12/24/17 14:02> Home Medications: Home Medications Medication Instructions Recorded Confirmed Type No Known Home Medications 12/09/17 12/09/17 History <Otto Hammonds - 12/24/17 14:02> Prescriptions/Medication Reconciliation: New Lactobacillus Acidophilus [Probiotic] 1 each PO DAILY #30 cap levoFLOXacin [Levaquin 500mg tab] 500 mg PO DAILY #5 tab raNITIdine HCl [Ranitidine HCl] 300 mg PO DAILY #30 cap Dicyclomine HCl [Bentyl 10mg capsule] 10 mg PO QIDP PRN #30 cap PRN Reason: abdominal pain No Action No Known Home Medications <Otto Hammonds - 12/24/17 14:02> - Additional Information Additional Information: Concur with assessment and plan for discharge. <Otto Hammonds - 12/24/17 14:02>
== END 2017-12-16 09:57 | disposition home or self-care (01) ==
LOC: 2ND 17:14 → ER 17:14 → 2ND 21:30
PROVIDERS: ADMIT Family Medicine; ATTEND Family Medicine

== ENCOUNTER 2018-02-09 17:05 | Inpatient (IN) | payer MEDICARE, OTHER, SELFPAY ==
--- NOTE | 2018-02-09 17:20 | CT_ITS ---
CT abdomen pelvis w con CLINICAL INDICATION: Lower abdominal pain ITS.REASON: lower abdomian;l taylor ORDERING PHYSICIAN: Otto Hammonds MD PATIENT AGE: 62 years COMPARISON: 12/14/2017 TECHNIQUE: Axial images obtained with sagittal and coronal reformats. All CT scans at the facility use one or more dose reduction, viz: automated exposure control, ma/kV adjustment per patient size (including targeted exams where dose is matched to indication, i.e. head), or iterative reconstruction technique. PROCEDURE: Oral Contrast: Gastroview IV Contrast: 75 mL's of Isovue-370. FINDINGS: No acute finding in the lung bases. There is a small hiatal hernia. Low density changes are present at the falciform ligament region and may be due to focal fatty infiltration similar to 12/14/2017. Liver has an otherwise unremarkable.. The gallbladder is somewhat distended with mild thickening of the gallbladder wall. Spleen, adrenal glands, and pancreas are unremarkable. No renal or ureteral calculi. No renal mass or hydronephrosis. There is mild dilatation of the infrarenal abdominal aorta with minimal intramural thrombus. The aorta measures up to 2.5 cm in transverse dimension. No intestinal obstruction or free air is evident. Unremarkable appendix. There is diverticulosis of the descending colon and sigmoid colon with moderate thickening noted of the sigmoid colon. There is mild haziness of the fat around the sigmoid colon. Chronic colitis of the sigmoid colon is considered. Cannot exclude mild diverticulitis. There is a small rounded fluid density to the right the sigmoid colon measuring 18 mm not readily apparent on the previous exam and could represent a small abscess. There is some increased soft tissue density medial to the left iliopsoas muscle at the L5-S1 level measuring 15 mm and may be due to some mild adenopathy. There is mild haziness and mild prominence of the left gonadal vein superior to this region which is of questionable clinical significance. Thrombophlebitis is a consideration. No acute bony findings. IMPRESSION: 1. Chronic long segment thickening of the sigmoid colon with minimal haziness of the fat suggesting chronic colitis versus mild diverticulitis. There is diverticulosis of the descending and sigmoid colon. Sigmoid mass/Neoplasm is not excluded. Follow-up is suggested 2. Mild haziness and enlargement of the left gonadal vein which could be due to some underlying thrombophlebitis with nodular density along the left iliopsoas region which could be due to reactive adenopathy. Consider follow-up to confirm resolution.
--- NOTE | 2018-02-09 17:22 | HMH.EDABDPAI ---
ED Disposition Clinical Impression: Hypokalemia, Acute diverticulitis, Dehydration, COPD (chronic obstructive pulmonary disease) Disposition: Still a Patient Condition on Discharge: Fair Referrals: Provider,Referral, [Primary Care Provider] - - Critical Care Critical Care Time: No Attestation: On 02/09/18, the high probability of a clinically significant, sudden or life threatening deterioration of the following system(s) required my full and direct attention, intervention and personal management. The time I documented below is in addition to time spent performing reported procedures but includes the following listed in this critical care notation. Medical Decision Making - Geoff Inquiry Pt receiving controlled substance: No Geoff was queried for this patient: No Vital Signs: 02/09/18 17:40 02/09/18 18:40 Temperature 99.4 F 99.4 F Temperature Source Oral Oral Pulse Rate [Left Radial] 90 113 H Respiratory Rate 26 H 24 Blood Pressure [Right Arm] 145/84 140/85 Blood Pressure Mean [Right Arm] 104 103 Blood Pressure Source [Right Arm] Automatic Cuff Blood Pressure Position [Right Arm] Sitting 02 Sat by Pulse Oximetry 96 98 Oxygen Delivery Method Room Air Room Air - Lab Data Lab Results 02/09/18 17:24: WBC 6.7, RBC 4.80, Hgb 15.7, Hct 46.8, MCV 97.5 H, MCH 32.7 H, MCHC 33.5, RDW 15.0, Plt Count 500 H, MPV 7.0 L, Neut % (Auto) 63.2, Lymph % (Auto) 27.6, [place] % (Auto) 7.6, Eos % (Auto) 0.9, Baso % (Auto) 0.7, Neut # (Auto) 4.2, Lymph # (Auto) 1.8, [place] # (Auto) 0.5, Eos # (Auto) 0.1, Baso # (Auto) 0.1 02/09/18 17:24: Sodium 138, Potassium 2.4 L*, Chloride 95 L, Carbon Dioxide 35 H, Anion Gap 10.4, BUN 11, Creatinine 0.87, Estimated Creat Clear 57, Estimated GFR 89, Est GFR ( Amer) 108, Glucose 134 H, Calcium 9.2, Total Bilirubin 1.0, AST 13 L, ALT 16, Alkaline Phosphatase 139 H, Total Protein 7.9 D, Albumin 3.4, Globulin 4.5 H, Albumin/Globulin Ratio 0.8 L, Lipase 162 02/09/18 17:24: Lactate 0.9 02/09/18 18:35: Urine Color Yellow, Urine Appearance Clear, Urine pH 6.0, Ur Specific [place] <= 1.005, Urine Protein Negative, Urine Glucose (UA) Negative, Urine Ketones Negative, Urine Blood 2+, Urine Nitrate Negative, Urine Bilirubin Negative, Urine Urobilinogen 1.0, Ur Leukocyte Esterase Negative Result diagrams: 02/09/18 17:24 02/09/18 17:24 Orders (Tests/Meds): ED MEDICATIONS Discontinued Medications Generic Name Dose Route Start Last Admin Trade Name Freq PRN Reason Stop Dose Admin Diatrizoate Meglum/Diatrizoate Sod 30 ml 02/09/18 17:20 02/09/18 17:44 Gastrografin 66%-10% 30ml PO 02/09/18 17:21 30 ml ONCE ONE Administration Sodium Chloride 1,000 mls @ 999 mls/hr 02/09/18 17:30 02/09/18 17:43 Sod Chlor 0.9% 1000ml Bag IV 02/09/18 18:30 999 mls/hr .Q1H1M MAMI Administration Iopamidol 75 ml 02/09/18 18:35 02/09/18 18:36 [id number]; 75ml Vial IV 02/09/18 18:36 75 ml ONCE ONE Administration Protocol Morphine Sulfate 2 mg 02/09/18 17:22 02/09/18 17:44 Morphine 2mg/Ml Syringe IV 02/09/18 17:23 2 mg ONCE ONE Administration Morphine Sulfate 2 mg 02/09/18 18:31 02/09/18 18:33 Morphine 2mg/Ml Syringe IV 02/09/18 18:32 2 mg ONCE ONE Administration Ondansetron HCl 4 mg 02/09/18 17:22 02/09/18 17:43 Zofran 4mg/2ml Vial IV 02/09/18 17:23 4 mg ONCE ONE Administration Potassium Chloride 40 meq 02/09/18 17:58 02/09/18 18:02 Klor-Con 20meq Tablet PO 02/09/18 17:59 40 meq ONCE ONE Administration Sodium Chloride 10 ml 02/09/18 18:35 02/09/18 18:36 Rad-Saline Flush 10ml Syringe IV 02/09/18 18:36 10 ml ONCE ONE Administration ORDERS Category Date Time Status CT abdomen pelvis w con Stat Cat Sc
--- NOTE | 2018-02-09 17:26 | ED_ITS ---
ED Disposition Clinical Impression: Hypokalemia, Acute diverticulitis, Dehydration, COPD (chronic obstructive pulmonary disease) Disposition: Still a Patient Condition on Discharge: Fair Referrals: Provider,Referral, [Primary Care Provider] - - Critical Care Critical Care Time: No Attestation: On 02/09/18, the high probability of a clinically significant, sudden or life threatening deterioration of the following system(s) required my full and direct attention, intervention and personal management. The time I documented below is in addition to time spent performing reported procedures but includes the following listed in this critical care notation. Medical Decision Making - Geoff Inquiry Pt receiving controlled substance: No Geoff was queried for this patient: No Vital Signs: 02/09/18 17:40 02/09/18 18:40 Temperature 99.4 F 99.4 F Temperature Source Oral Oral Pulse Rate [Left Radial] 90 113 H Respiratory Rate 26 H 24 Blood Pressure [Right Arm] 145/84 140/85 Blood Pressure Mean [Right Arm] 104 103 Blood Pressure Source [Right Arm] Automatic Cuff Blood Pressure Position [Right Arm] Sitting 02 Sat by Pulse Oximetry 96 98 Oxygen Delivery Method Room Air Room Air - Lab Data Lab Results 02/09/18 17:24: WBC 6.7, RBC 4.80, Hgb 15.7, Hct 46.8, MCV 97.5 H, MCH 32.7 H, MCHC 33.5, RDW 15.0, Plt Count 500 H, MPV 7.0 L, Neut % (Auto) 63.2, Lymph % (Auto) 27.6, [place] % (Auto) 7.6, Eos % (Auto) 0.9, Baso % (Auto) 0.7, Neut # (Auto) 4.2, Lymph # (Auto) 1.8, [place] # (Auto) 0.5, Eos # (Auto) 0.1, Baso # (Auto) 0.1 02/09/18 17:24: Sodium 138, Potassium 2.4 L*, Chloride 95 L, Carbon Dioxide 35 H , Anion Gap 10.4, BUN 11, Creatinine 0.87, Estimated Creat Clear 57, Estimated GFR 89, Est GFR ( Amer) 108, Glucose 134 H, Calcium 9.2, Total Bilirubin 1.0, AST 13 L, ALT 16, Alkaline Phosphatase 139 H, Total Protein 7.9 D, Albumin 3.4, Globulin 4.5 H, Albumin/Globulin Ratio 0.8 L, Lipase 162 02/09/18 17:24: Lactate 0.9 02/09/18 18:35: Urine Color Yellow, Urine Appearance Clear, Urine pH 6.0, Ur Specific [place] <= 1.005, Urine Protein Negative, Urine Glucose (UA) Negative, Urine Ketones Negative, Urine Blood 2+, Urine Nitrate Negative, Urine Bilirubin Negative, Urine Urobilinogen 1.0, Ur Leukocyte Esterase Negative Result diagrams: 02/09/18 17:24 02/09/18 17:24 Orders (Tests/Meds): ED MEDICATIONS Discontinued Medications Generic Name Dose Route Start Last Admin Trade Name Freq PRN Reason Stop Dose Admin Diatrizoate Meglum/Diatrizoate Sod 30 ml 02/09/18 17:20 02/09/18 17:44 Gastrografin 66%-10% 30ml PO 02/09/18 17:21 30 ml ONCE ONE Administration Sodium Chloride 1,000 mls @ 999 mls/hr 02/09/18 17:30 02/09/18 17:43 Sod Chlor 0.9% 1000ml Bag IV 02/09/18 18:30 999 mls/hr .Q1H1M MAMI Administration Iopamidol 75 ml 02/09/18 18:35 02/09/18 18:36 [id number]; 75ml Vial IV 02/09/18 18:36 75 ml ONCE ONE Administration Protocol Morphine Sulfate 2 mg 02/09/18 17:22 02/09/18 17:44 Morphine 2mg/Ml
[2018-02-09 17:40] VITALS: BP 145/84; PULSE 90; RESP 26; TEMP 37.4; O2SAT 96; BMI 19.7
[2018-02-09 17:46] LABS: Basophils # 0.1 K/mm3 (0-0.2); Basophils % 0.7 % (0.1-2.0); Eosinophils # 0.1 K/mm3 (0.0-0.4); Eosinophils % 0.9 % (0.1-12.0); Hematocrit 46.8 % (42.0-52.0); Hemoglobin 15.7 g/dL (14.1-18.0); Lymphocytes # 1.8 K/mm3 (0.7-4.5); Lymphocytes % 27.6 K/mm3 (10-50); Mean Corpuscular HGB Conc 33.5 g/dL (31.8-35.4); Mean Corpuscular Hemoglobin 32.7 pg (27.0-31.2); Mean Corpuscular Volume 97.5 fl (80-94); Monocytes # 0.5 K/mm3 (0.1-1.0); Monocytes % 7.6 % (1.7-9.3); Neutrophils # 4.2 K/mm3 (1.8-7.8); Neutrophils % 63.2 % (37.0-80.0); Platelet Count 500 K/mm3 (142-424); White Blood Count 6.7 K/mm3 (4.8-10.8)
[2018-02-09 17:49] LABS: Alanine Aminotransferase 16 U/L (12-78); Albumin Level 3.4 gm/dL (3.4-5.0); Albumin/Globulin Ratio 0.8 (1.1-1.8); Alkaline Phosphatase 139 U/L (46-116); Anion Gap 10.4 mEq/L (5-15); Aspartate Amino Transferase 13 U/L (15-37); Blood Urea Nitrogen 11 mg/dL (7-18); Calcium 9.2 mg/dL (8.5-10.1); Carbon Dioxide 35 mmol/L (21.0-32.0); Chloride 95 mmol/L (98-107); Creatinine Clearance Estimated 57 mL/min (0-300); Creatinine,Serum 0.87 mg/dL (0.70-1.30); Estimated Glomerular Filt Rate 89 ml/min (>60); GFR (African American) 108 ML/MIN (>60); Globulin 4.5 gm/dl (1.3-3.2); Glucose 134 mg/dL (74-106); Lipase 162 u/L (73-393); Sodium 138 mmol/L (136-145); Total Protein,Serum 7.9 gm/dL (6.4-8.2)
[2018-02-09 17:54] LABS: Lactic Acid 0.9 mmol/L (0.4-2.0); Potassium 2.4 mmoL/L (3.5-5.1)
--- NOTE | 2018-02-09 17:59 | PC.NURSE ---
notified ER MD of potassium level
[2018-02-09 18:40] VITALS: BP 140/85; PULSE 113; RESP 24; TEMP 37.4; O2SAT 98
[2018-02-09 18:43] LABS: Microscopic, Urine URINE MICROSCOPIC (MICROSCOPIC)
[2018-02-09 18:47] LABS: Appearance,Urine CLEAR (Clear); Bilirubin,Urine Negative (Negative); Blood, Urine 2+ (Negative); Color,Urine YELLOW (Yellow); Glucose,Urine (UA) Negative (Negative); Ketones,Urine Negative (Negative); Leukocyte Esterase,Urine Negative (Negative); Nitrate,Urine Negative (Negative); Protein,Urine Negative (Negative); Specific Gravity, Urine <= 1.005 (1.005-1.030)
[2018-02-09 19:09] VITALS: BP 118/64; PULSE 78; RESP 24; TEMP 37.2; O2SAT 96
--- NOTE | 2018-02-09 19:10 | PC.NURSE ---
pt tearful and anxious.
--- NOTE | 2018-02-09 19:31 | PC.NURSE ---
attempted to call report to floor they will have to call back
[2018-02-09 19:40] LABS: Bacteria,Urine Trace /lpf; WBC,Urine Occasional #/hpf (0-3)
[2018-02-09 19:44] VITALS: BP 131/66; PULSE 87; RESP 17; TEMP 37.2; O2SAT 96
--- NOTE | 2018-02-09 20:25 | PC.NURSE ---
PT FULL CODE, REPORT RECEIVED FROM ROJELIORN
[2018-02-09 20:46] VITALS: BP 128/78; PULSE 78; RESP 16; TEMP 36.5; O2SAT 94; BMI 19.9
--- NOTE | 2018-02-09 21:19 | PC.NURSE ---
PT ARRIVED TO FLOOR AT 2004 VIA WHEELCHAIR
[2018-02-09 21:20] VITALS: PULSE 78; O2SAT 94
[2018-02-09 21:43] LABS: Adenovirus F 40/41, stool Not Detected (NotDetected); Astrovirus Not Detected (NotDetected); Campylobacter Not Detected (NotDetected); Clostridium Difficile A/B, PCR Not Detected (NotDetected); Cryptosporidium Not Detected (NotDetected); Cyclospora Cayetanesis Not Detected (NotDetected); Entamoeba histolytica Not Detected (NotDetected); Enteroaggregative E coli Not Detected (NotDetected); Enteropathogenic E coli Not Detected (NotDetected); Enterotoxigenic E coli Not Detected (NotDetected); Giardia lamblia Not Detected (NotDetected); Norovirus Not Detected (NotDetected); Plesimonas Shigalloides, PCR Not Detected (NotDetected); Rotavirus A Not Detected (NotDetected); Salmonella, PCR Not Detected (NotDetected); Sapovirus Not Detected (NotDetected); Shiga-like toxin E coli Not Detected (NotDetected); Shigella Enterovasive E coli Not Detected (NotDetected); Vibrio Cholerae Not Detected (NotDetected); Vibrio, PCR Not Detected (NotDetected); Yersinia Entercolitica, PCR Not Detected (NotDetected)
[2018-02-10] VITALS (7 sets, daily range): BP systolic 93–122; BP diastolic 50–74; PULSE 71–85; RESP 14–23; TEMP 36.6–37.1; O2SAT 90–97; BMI 19.8
--- NOTE | 2018-02-10 04:00 | PC.NURSE ---
PT BP REPORTED TO ME 98/50. TECH STATED PT WAS SLEEPING SOUNDLY WHEN SHE WENT IN TO OBTAIN HIS V/S. AWAKEN EASILY.
--- NOTE | 2018-02-10 04:33 | PC.NURSE ---
nurse is aware of low B/P
--- NOTE | 2018-02-10 05:39 | PC.NURSE ---
PT NEW ADMIT BEGINNING OF SHIFT DX OF ACUTE DIVERTICULITIS, HYPOKALEMIA AND DEHYDRATION. PO KCL GIVEN ORDERED. IV SECURE AND PATENT INFUSING NS+20MEQ OF KCL@125/HR. PT STILL HAVING LIQUID STOOLS. DIARRHEA PANEL AND AND CAME BACK NEGATIVE SO PRECAUTIONS DISCONTINUED. PT'S COMPLAINT IS RT LOWER QUADRANT PAIN. PT REQUESTED MED FOR PAIN X2 OF THIS TIME. PT SLEPT LONG INTERVALS AFTER PAIN MED GIVEN. PT STABLE. WILL CONTINUE TO MONITOR. REPORT TO BE GIVEN TO ONCOMING NURSE.
[2018-02-10 06:48] LABS: Alanine Aminotransferase 11 U/L (12-78); Albumin Level 2.3 gm/dL (3.4-5.0); Albumin/Globulin Ratio 0.7 (1.1-1.8); Alkaline Phosphatase 100 U/L (46-116); Anion Gap 8.7 mEq/L (5-15); Aspartate Amino Transferase 6 U/L (15-37); Bilirubin,Total 0.8 mg/dL (0.2-1.0); Blood Urea Nitrogen 8 mg/dL (7-18); Carbon Dioxide 30 mmol/L (21.0-32.0); Chloride 107 mmol/L (98-107); Creatinine Clearance Estimated 58 mL/min (0-300); Creatinine,Serum 0.69 mg/dL (0.70-1.30); Estimated Glomerular Filt Rate 117 ml/min (>60); GFR (African American) 141 ML/MIN (>60); Globulin 3.5 gm/dl (1.3-3.2); Glucose 96 mg/dL (74-106); Magnesium 1.8 mg/dL (1.4-2.2); Potassium 3.7 mmoL/L (3.5-5.1); Sodium 142 mmol/L (136-145); Total Protein,Serum 5.8 gm/dL (6.4-8.2)
--- NOTE | 2018-02-10 07:00 | PC.NURSE ---
Addendum entered by Erin Ferraro RN 02/10/18 07:18: Report given to AILYN Londono, not to AILYN Ornelas Original Note: REPORT GIVEN TO FRANKLINRN
--- NOTE | 2018-02-10 07:29 | HMH.PHAVTE ---
[facility] Pharmacy VTE Monitoring - Patient Demographics Admission date: 02/09/18 Report Date: 02/10/18 Time: 07:29 Allergies/Adverse Reactions: Patient Allergies aspirin [ASPIRIN] Allergy (Unknown, Verified 12/08/17 17:26) UNKNOWN Height: 1.63 m Weight: 52.758 kg Patient Problems: Current Active Problems COPD (chronic obstructive pulmonary disease) (Chronic) Hypokalemia (Acute) Acute diverticulitis (Acute) Dehydration (Acute) - VTE Risk Labs: VTE Related Lab Results Hgb 15.7 g/dL (14.1-18.0) 02/09/18 17:24 Hct 46.8 % (42.0-52.0) 02/09/18 17:24 Plt Count 500 K/mm3 (142-424) H 02/09/18 17:24 BUN 8 mg/dL (7-18) D 02/10/18 06:05 Creatinine 0.69 mg/dL (0.70-1.30) L D 02/10/18 06:05 Estimated Creat Clear 58 mL/min (0-300) 02/10/18 06:05 Was VTE Risk Assessment Performed: Yes VTE Score: 2 VTE Risk Level: Very Low Risk - Prophylaxis VTE Prophylaxis Ordered?: Yes Types of VTE Prophylaxis: TEDS Knee High Location of Applied Device: Bilateral Lower Extremeties - VTE Diagnosis Confirmed Treatment or plan recommended: Continue Current Treatment
--- NOTE | 2018-02-10 08:06 | HMH.HP ---
*Admission Date: 02/09/18 <Tiffanie Dela Cruz - 02/10/18 08:16> *Chief complaint: abdominal pain, diarrhea <Tiffanie Dela Cruz - 02/10/18 08:16> *History of present illness: Further to the above history patient states that after discharge from [facility] in November, he finished the prescribed medications and his pain resolved but he has continued to have diarrhea which he states has been chronic for years. About 10 days ago, he began having low midline and LLQ pain that was worse with eating. No blood in his stools and no fever. Pain progressed until last night he could not stand it any longer and he had a friend bring him to the ER. He was indeed seen by Dr. Castellon for GI consultation during his last admission and underwent a sigmoidoscopy with biopsies and removal of one polyp. He was treated for presumed infectious colitis. His biopsies returned after he was discharged from the hospital and showed ischemic colitis. He was scheduled to see Dr. Castellon for outpt f/u on 12/28/17 but did not keep his appt stating he had no transportation. His PCR diarrhea panel was negative at last visit and also negative last night. K+ noted to be low but improved this AM. He apparently has been able to drink liquids OK and does not appear dehydrated as his BUN is normal, his urine SG is <1.005 and he is not hypotensive. CT scan shows the same area of thickening in the sigmoid colon but also showing an 18 mm fluid density adjacent to the sigmoid raising the question of a small abscess. <Otto Hammonds - 02/10/18 13:15> Mr. Lu is a 62 year old white male smoker with history of COPD and colitis. Ten days ago he developed another episode of lower abdominal pressure and pain that was worse with food. He was previously admitted a few months ago for the same thing. He denies any vomiting but has had constant diarrhea. The pressure got worse until it became a 10/10 and he came to the ED. He has been unable to eat for the past 8 days and has only been drinking soft drinks. He has no primary care physician. He states he has never had a c-scope or seen GI. <Tiffanie Dela Cruz - 02/10/18 08:16> [facility] History Medical History: Reports:: Chronic Obstructive Pulmonary Disease (COPD), Coronary Artery Disease, Depression, Gastroesophageal Reflux Disease(GERD), Hiatal Hernia, Hypertension, Migraine Denies:: Cancer, Diabetes Mellitus Type 1, Diabetes Mellitus Type 2, MRSA, Seizures <LanieTiffanie 02/10/18 08:16> Other Medical History: Reports: Arthritis <LanieTiffanie 02/10/18 08:16> Comment: Colitis <LanieTiffanie 02/10/18 08:16> Other Surgeries: Yes: No Previous Surgery <George Dela Cruza 02/10/18 08:16> Amputation: No <LanieTiffanie 02/10/18 08:16> - *Social History Educational Level: Attended High School <LanieTiffanie 02/10/18 08:16> Smoking Status: Current every day smoker <LanieTiffanie 02/10/18 08:16> Tobacco Type: cigarettes <LanieTiffanie 02/10/18 08:16> # Packs/Day (cigarettes): 1 <LanieTiffanie 02/10/18 08:16> #Yrs smoked (if former smoker): 45 <LanieTiffanie 02/10/18 08:16> Alcohol Intake: former <LanieTiffanie 02/10/18 08:16> Alcohol Intake Frequency:: a few times a month <George Dela Cruza 02/10/18 08:16> Occupational Status: disabled <LanieTiffanie 02/10/18 08:16> Housing: apartment <LanieTiffanie 02/10/18 08:16> Household Members: none <George Dela Cruza 02/10/18 08:16> - Psychiatric History Expresses thoughts of harming self/others: None <George Dela Cruza 02/10/18 08:16> Suicide Plan Description: No Plan <George Dela Cruza 02/10/18 08:16> Pschychiatric History:: Reports:: Depression <George Dela Cruza 02/10/18 08:16> *Family Hx:: Unable to obtain <Tiffanie Dela Cruz 02/10/18 08:16> Review of Systems - Constitutional Reports chills, Reports fatigue, Reports weakness <Tiffanie Dela Cruz 02/10/18 08:16> - Eyes Denies blurry vision, Denies double vision <Tiffanie Dela Cruz - 02/10/18 08:16> - ENT Denies nasal congestion,
--- NOTE | 2018-02-10 08:10 | P.HP_ITS ---
*Admission Date: 02/09/18 <Tiffanie Dela Cruz - 02/10/18 08:16> *Chief complaint: abdominal pain, diarrhea <Tiffanie Dela Cruz - 02/10/18 08:16> *History of present illness: Further to the above history patient states that after discharge from [facility] in November, he finished the prescribed medications and his pain resolved but he has continued to have diarrhea which he states has been chronic for years. About 10 days ago, he began having low midline and LLQ pain that was worse with eating. No blood in his stools and no fever. Pain progressed until last night he could not stand it any longer and he had a friend bring him to the ER. He was indeed seen by Dr. Castellon for GI consultation during his last admission and underwent a sigmoidoscopy with biopsies and removal of one polyp. He was treated for presumed infectious colitis. His biopsies returned after he was discharged from the hospital and showed ischemic colitis. He was scheduled to see Dr. Castellon for outpt f/u on 12/28/17 but did not keep his appt stating he had no transportation. His PCR diarrhea panel was negative at last visit and also negative last night. K+ noted to be low but improved this AM. He apparently has been able to drink liquids OK and does not appear dehydrated as his BUN is normal, his urine SG is <1.005 and he is not hypotensive. CT scan shows the same area of thickening in the sigmoid colon but also showing an 18 mm fluid density adjacent to the sigmoid raising the question of a small abscess. <Otto Hammonds - 02/10/18 13:15> Mr. Lu is a 62 year old white male smoker with history of COPD and colitis. Ten days ago he developed another episode of lower abdominal pressure and pain that was worse with food. He was previously admitted a few months ago for the same thing. He denies any vomiting but has had constant diarrhea. The pressure got worse until it became a 10/10 and he came to the ED. He has been unable to eat for the past 8 days and has only been drinking soft drinks. He has no primary care physician. He states he has never had a c-scope or seen GI. <Tiffanie Dela Cruz - 02/10/18 08:16> [facility] History Medical History: Reports:: Chronic Obstructive Pulmonary Disease (COPD), Coronary Artery Disease, Depression, Gastroesophageal Reflux Disease(GERD), Hiatal Hernia, Hypertension, Migraine Denies:: Cancer, Diabetes Mellitus Type 1, Diabetes Mellitus Type 2, MRSA, Seizures <MundoomegaTiffanie 02/10/18 08:16> Other Medical History: Reports: Arthritis <MundoomegaTiffanie 02/10/18 08:16> Comment: Colitis <LanieTiffanie 02/10/18 08:16> Other Surgeries: Yes: No Previous Surgery <LanieTiffanie 02/10/18 08:16> Amputation: No <MundoomegaTiffanie 02/10/18 08:16> - *Social History Educational Level: Attended High School <LanieTiffanie 02/10/18 08:16> Smoking Status: Current every day smoker <LanieTiffanie 02/10/18 08:16> Tobacco Type: cigarettes <LanieTiffanie 02/10/18 08:16> # Packs/Day (cigarettes): 1 <LanieTiffanie 02/10/18 08:16> #Yrs smoked (if former smoker): 45 <MundoomegaTiffanie 02/10/18 08:16> Alcohol Intake: former <MundoomegaTiffanie 02/10/18 08:16> Alcohol Intake Frequency:: a few times a month <LanieTiffanie 02/10/18 08:16> Occupational Status: disabled <MundoomegaTiffanie 02/10/18 08:16> Housing: apartment <LanieTiffanie 02/10/18 08:16> Household Members: none <LanieTiffanie 02/10/18 08:16> - Psychiatric History Expresses thoughts of harming self/others: None <LanieTiffanie 02/10/18 08:16> Suicide Plan Description: No Plan <LanieTiffanie 02/10/18 08:16> Pschychiatric History:: Reports:: Depression <LanieTiffanie 02/10/18 08:16> *Family Hx:: Unable to obtain <Tiffanie Dela Cruz 02/10/18 08:16>
--- NOTE | 2018-02-10 18:19 | PC.NURSE ---
Pt has complained of pain most of this shift, PRN pain medication given as ordered when patient was awake. Pt has been up to bathroom per self several times this shift. Pt has not had much to eat this shift. Pt is in bed, call light within reach, will continue to monitor.
--- NOTE | 2018-02-10 19:17 | PC.NURSE ---
report given to susan
--- NOTE | 2018-02-10 19:19 | PC.NURSE ---
Hand off report given to Yanet Romano RN.
[2018-02-11 04:00] VITALS: BP 101/61; PULSE 67; RESP 14; TEMP 36.9; O2SAT 100
--- NOTE | 2018-02-11 04:43 | PC.NURSE ---
A&O X3. AMBULATED TO BATHROOM AT BEGINNING OF SHIFT; GAIT AND BALANCE SATISFACTORY. ABD SOFT, FLAT AND TENDER IN BOTH LOWER QUADRANTS; BOWEL SOUNDS ACTIVE IN ALL QUADRANTS. PT. C/O PAIN 03/03 TX WITH MORPHINE; PT. RESTING IN BED WITH EYES CLOSED AT THIS TIME. C/O NASUEA STATED AND MEDICATED PER MAR WITH PRN NAUSEA MEDICATION, ON REASSESSMENT PT NOTED RESTING WITH EYES CLOSED. IV PATENT AND INFUSING; SHOWING NO S/S OF INFILTRATION. PT. REFUSED FERN HOSE. PT. HAS NO COMPLAINTS AT THIS TIME; VSS; WILL CONTINUE TO MONITOR.
--- NOTE | 2018-02-11 07:27 | PC.NURSE ---
REPORT GIVEN TO Juan Antonio ERAZO W/C
[2018-02-11 08:00] VITALS: BP 114/67; PULSE 67; RESP 20; TEMP 37.3; O2SAT 98
--- NOTE | 2018-02-11 08:05 | CT_ITS ---
CT angio abdomen pelvis CLINICAL INDICATION: ischemic colitis, left lower quadrant pain ITS.REASON: ischemic colitis; LLQ pain ORDERING PHYSICIAN: Otto Hammonds MD PATIENT AGE: 62 years COMPARISON: 02/09/2018 TECHNIQUE: Axial images obtained with sagittal and coronal reformats. All CT scans at the facility use one or more dose reduction, viz: automated exposure control, ma/kV adjustment per patient size (including targeted exams where dose is matched to indication, i.e. head), or iterative reconstruction technique. PROCEDURE: Oral Contrast: None IV Contrast: 100 mL Isovue-370. FINDINGS: CT angiogram: Scattered atheromatous changes are present within the aorta with minimal ectasia of the infrarenal abdominal aorta at 2.1 cm. The celiac artery and superior mesenteric arteries are widely patent. No evidence of thrombosis or embolus within the celiac or SMA. There is a severe stenosis of the ostium of the inferior mesenteric artery of 95%. The SMA distal to this region has a normal appearance. There are atheromatous changes of the common iliacs but no significant stenosis of the common or external iliacs. There is minimal dilatation of the proximal aspect of the internal iliacs on both sides. Nonangiographic findings: The liver is unremarkable. The gallbladder is somewhat distended. The spleen is unremarkable. There is a small hiatal hernia. Adrenal glands and pancreas have an unremarkable appearance. No hydronephrosis or renal mass. No evidence of intracranial hemorrhage or mass. There is a small amount fluid in the right paracolic gutter as well as a small amount fluid in the left paracolic gutter. The appendix has an unremarkable appearance. Extensive diverticulosis once again noted involving the descending and sigmoid colon. There remains thickening of the sigmoid colon as previously described. Previously there is a small fluid collection to the right of the sigmoid colon in the pelvis. This is once again noted but now contains a small amount of gas suspicious for a small abscess. This is NOT amenable to percutaneous drainage. An unopacified bowel is also considered however, the overall size and shape is not significantly changed. There is no evidence of pneumatosis or free air. IMPRESSION: 1. 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 The celiac and superior mesenteric arteries have an unremarkable appearance. No prominent collateral vessels are evident between the SMA and CUCO branches. 2. Persistent thickening of the sigmoid colon consistent with colitis of the sigmoid colon with extensive diverticulosis. 3. Persistent small rounded fluid collection to the right of the sigmoid colon. Now with a small amount of gas suspicious for small abscess. This is NOT amenable to percutaneous drainage. There is now small amount of fluid in the paracolic gutters and a minimal amount of perihepatic fluid.
--- NOTE | 2018-02-11 08:08 | HMH.ACPN2 ---
Internal Medicine - PN: Subj *Date: 02/11/18 *Time: 08:08 Interval history: He is requiring morphine q4h for low abdominal pain and states he is not getting any relief. States he was up several times during the night with watery stools. Exam Vital signs and Labs for Last 24 Hours: Temp Pulse Resp BP Pulse Ox 98.4 F 67 14 101/61 100 02/11/18 04:00 02/11/18 04:00 02/11/18 04:00 02/11/18 04:00 02/11/18 04:00 I & O for Last 24 hours: Intake & Output 02/08/18 02/09/18 02/10/18 02/11/18 11:59 11:59 11:59 11:59 Intake Total 3849 / 3849 3977 / 3977 Output Total 800 / 800 Balance 3849 / 3849 3177 / 3177 Weight 116 lb 5 oz 116 lb 4.984 oz - *Routine Abdominal Exam Comments: soft with voluntary guarding. Moderate LLQ tenderness. BS present Assessment and Plan (1) Chronic ischemic colitis Current visit: Yes Status: Acute Category: Medical Code(s): K55.1 - Chronic vascular disorders of intestine (2) Acute diverticulitis Current visit: Yes Status: Acute Category: Medical Code(s): K57.92 - Diverticulitis of intestine, part unspecified, without perforation or abscess without bleeding (3) Hypokalemia Current visit: Yes Status: Acute Category: Medical Code(s): E87.6 - Hypokalemia (4) COPD (chronic obstructive pulmonary disease) Current visit: Yes Status: Chronic Category: Medical Code(s): J44.9 - Chronic obstructive pulmonary disease, unspecified (5) Tobacco abuse Current visit: No Status: Chronic Category: Medical Code(s): Z72.0 - Tobacco use - Assessment and plan all Dx Assessment and Plan for all problems:: Proceed with mesenteric CT angiogram. Increase pain medication. Consult Dr. Castellon.
--- NOTE | 2018-02-11 13:25 | PC.NURSE ---
Pt off the floor for CT scan.
--- NOTE | 2018-02-11 13:51 | PC.NURSE ---
Pt returned to floor from CT.
[2018-02-11 16:00] VITALS: BP 115/66; PULSE 75; RESP 16; TEMP 36.9; O2SAT 96
--- NOTE | 2018-02-11 19:10 | PC.NURSE ---
PT FULL CODE, REPORT RECEIVED FROM AILYN GRACIA
--- NOTE | 2018-02-11 19:36 | PC.NURSE ---
Pt resting in bed, A/O x 3, verbalizes needs. C/o's abdominal pain throughout day, Dr. Hammonds increased pain medicine with postive results noted. Pt has rested much better throughout day with increase in pain med. Ambulates ad geneva to and from bathroom. Refused shower and refused to change clothes. Awaiting GI consult tomorrow. Tolerating CLD. Denies N/V. Call light within reach, will continue to observe for any changes.
[2018-02-11 20:00] VITALS: BP 138/77; PULSE 78; RESP 16; TEMP 37; O2SAT 98
[2018-02-11 21:20] VITALS: PULSE 78; O2SAT 98
[2018-02-12 04:00] VITALS: BP 102/57; PULSE 56; RESP 16; TEMP 37.2; O2SAT 97
--- NOTE | 2018-02-12 05:22 | PC.NURSE ---
PT ALERT AND ORIENTED. SLEPT INTERVALS AFTER PAIN MED GIVEN. PT HAS RECEIVED PAIN MED ALMOST EXACTLY EVERY 4HRS. SMELLED SOMEWHAT OF SMOKE IN PT'S BATHROOM AND PT IS A CURRENT SMOKER. I ADDRESSED WITH PT ABOUT NO SMOKING IN HOSPITAL. NICOTINE PATCH OFFERED. PT STATED IT DOESN'T STICK ON HIM. TECH ASKED PT ABOUT BATH BEGINNING OF SHIFT. PT REFUSED. PT HAS REFUSED BATH EVERY DAY SINCE ADMISSION AND PT WAS HAVING MULTIPLE DIARRHEA EPISODES WELL. PT HAS WORN SAME CLOTHES SINCE ADMISSION WELL. I EXPLAINED TO PT WHEN A CONSULT IS ORDERED, OUR DOCTORS USUALLY PREFER PT HAS BATHED. I EDUCATED HIM ON WHY BATHING DAILY IS IMPORTANT AND HELPS DECREASE INFECTION. PT STATED HE WOULD TAKE SHOWER IN A.M. PT IS CURRENTLY IN SHOWER, BUT STATES HE WANTS TO PUT HIS SAME CLOTHES BACK ON AND NOT WEAR GOWN. IV SECURE AND PATENT INFUSING NS+20KCL@125/HR, CONTINUES ON IV ABX. PT HAS BEEN NPO SINCE MIDNIGHT. C/O NAUSEA X1 EARLY IN SHIFT, ZOFRAN GIVEN. NO DIARRHEA OR VOMITING REPORTED. PT STABLE. WILL CONTINUE TO MONITOR. REPORT TO BE GIVEN TO ONCOMING NURSE.
--- NOTE | 2018-02-12 07:02 | PC.NURSE ---
REPORT GIVEN TO ANDRESRN
[2018-02-12 07:08] LABS: Basophils % 0.3 % (0.1-2.0); Eosinophils # 0.1 K/mm3 (0.0-0.4); Eosinophils % 0.8 % (0.1-12.0); Hematocrit 43.3 % (42.0-52.0); Lymphocytes # 1.6 K/mm3 (0.7-4.5); Lymphocytes % 13.8 K/mm3 (10-50); Mean Corpuscular HGB Conc 32.5 g/dL (31.8-35.4); Mean Corpuscular Hemoglobin 32.4 pg (27.0-31.2); Mean Corpuscular Volume 99.9 fl (80-94); Mean Platelet Volume 7.9 fl (7.4-10.4); Monocytes # 0.7 K/mm3 (0.1-1.0); Neutrophils # 9.1 K/mm3 (1.8-7.8); Neutrophils % 79.2 % (37.0-80.0); Platelet Count 493 K/mm3 (142-424); Red Blood Count 4.33 M/mm3 (4.60-6.20); Red Cell Distribution Width 14.8 % (11.5-17.5); White Blood Count 11.4 K/mm3 (4.8-10.8)
[2018-02-12 07:20] LABS: Alanine Aminotransferase 10 U/L (12-78); Albumin Level 2.7 gm/dL (3.4-5.0); Albumin/Globulin Ratio 0.7 (1.1-1.8); Alkaline Phosphatase 108 U/L (46-116); Anion Gap 16.7 mEq/L (5-15); Aspartate Amino Transferase 10 U/L (15-37); Bilirubin,Total 0.7 mg/dL (0.2-1.0); Blood Urea Nitrogen 4 mg/dL (7-18); Calcium 8.5 mg/dL (8.5-10.1); Carbon Dioxide 22 mmol/L (21.0-32.0); Chloride 106 mmol/L (98-107); Creatinine Clearance Estimated 58 mL/min (0-300); Creatinine,Serum 0.85 mg/dL (0.70-1.30); Estimated Glomerular Filt Rate 92 ml/min (>60); GFR (African American) 111 ML/MIN (>60); Globulin 3.9 gm/dl (1.3-3.2); Glucose 101 mg/dL (74-106); Potassium 3.7 mmoL/L (3.5-5.1); Sodium 141 mmol/L (136-145); Total Protein,Serum 6.6 gm/dL (6.4-8.2)
--- NOTE | 2018-02-12 07:25 | PC.NURSE ---
REPORT GIVEN TO Benny CARREON W/C
[2018-02-12 08:00] VITALS: BP 112/68; PULSE 74; RESP 92; TEMP 36.8; O2SAT 92; O2SAT 98
[2018-02-12 08:00] LABS: D-Dimer 2420 ng/mL (0-400)
--- NOTE | 2018-02-12 08:32 | HMH.ACPN2 ---
<Tiffanie Dela Cruz - Last Filed: 02/12/18 08:32> Internal Medicine - PN: Subj *Date: 02/12/18 *Time: 08:33 Interval history: Patient states he feels about the same today. He is still having abdominal pain and loose stools. He did not rest well throughout the night. Exam Vital signs and Labs for Last 24 Hours: Temp Pulse Resp BP Pulse Ox 98.9 F 56 L 16 102/57 97 02/12/18 04:00 02/12/18 04:00 02/12/18 04:00 02/12/18 04:00 02/12/18 04:00 Laboratory Results - last 24 hr 02/12/18 06:20: WBC 11.4 H D, RBC 4.33 L, Hgb 14.0 L, Hct 43.3, MCV 99.9 H, MCH 32.4 H, MCHC 32.5, RDW 14.8, Plt Count 493 H, MPV 7.9, Neut % (Auto) 79.2, Lymph % (Auto) 13.8, Troup % (Auto) 6.0, Eos % (Auto) 0.8, Baso % (Auto) 0.3, Neut # (Auto) 9.1 H, Lymph # (Auto) 1.6, Troup # (Auto) 0.7, Eos # (Auto) 0.1, Baso # (Auto) 0.0 02/12/18 06:20: D-Dimer 2420 H* 02/12/18 06:20: Sodium 141, Potassium 3.7, Chloride 106, Carbon Dioxide 22 D, Anion Gap 16.7 H, BUN 4 L D, Creatinine 0.85 D, Estimated Creat Clear 58, Estimated GFR 92, Est GFR ( Amer) 111 D, Glucose 101, Calcium 8.5, Total Bilirubin 0.7, AST 10 L D, ALT 10 L, Alkaline Phosphatase 108, Total Protein 6.6, Albumin 2.7 L, Globulin 3.9 H, Albumin/Globulin Ratio 0.7 L I & O for Last 24 hours: Intake & Output 02/09/18 02/10/18 02/11/18 02/12/18 11:59 11:59 11:59 11:59 Intake Total 3849 / 3849 4807 / 4807 3476 / 3476 Output Total 800 / 800 Balance 3849 / 3849 4007 / 4007 3476 / 3476 Weight 116 lb 5 oz 116 lb 4.984 oz Microbiology Reports for the Last 24 Hours: Microbiology 02/09/18 17:24 Blood Blood Culture - Preliminary NO GROWTH AFTER 48 HOURS 02/09/18 17:24 Blood Blood Culture - Preliminary NO GROWTH AFTER 48 HOURS Radiology Reports for the Last 24 Hours: CTA abdomen 1. 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 The celiac and superior mesenteric arteries have an unremarkable appearance. No prominent collateral vessels are evident between the SMA and CUCO branches. 2. Persistent thickening of the sigmoid colon consistent with colitis of the sigmoid colon with extensive diverticulosis. 3. Persistent small rounded fluid collection to the right of the sigmoid colon. Now with a small amount of gas suspicious for small abscess. This is NOT amenable to percutaneous drainage. There is now small amount of fluid in the paracolic gutters and a minimal amount of perihepatic fluid. - Constitutional no acute distress - *Routine Respiratory Exam Present: CTA bilaterally - *Routine Cardiovascular Exam Present: RRR - *Routine Abdominal Exam Present: soft, normoactive bowel sounds, tenderness (in the entire lower abdomen) - *Routine Extremities Exam Absent: edema Assessment and Plan (1) Chronic ischemic colitis Current visit: Yes Status: Acute Category: Medical Code(s): K55.1 - Chronic vascular disorders of intestine (2) Acute diverticulitis Current visit: Yes Status: Acute Category: Medical Code(s): K57.92 - Diverticulitis of intestine, part unspecified, without perforation or abscess without bleeding (3) Hypokalemia Current visit: Yes Status: Acute Category: Medical Code(s): E87.6 - Hypokalemia (4) COPD (chronic obstructive pulmonary disease) Current visit: Yes Status: Chronic Category: Medical Code(s): J44.9 - Chronic obstructive pulmonary disease, unspecified (5) Tobacco abuse Current visit: No Status: Chronic Category: Medical Code(s): Z72.0 - Tobacco use - Assessment and plan all Dx Assessment and Plan for all problems:: CTA of the abdomen report reviewed. Dr. Castellon to see patient today. Will continue abx and pain control. <Jean Carlos Lundberg - Last Filed: 02/12/18 08:53> Exam Vital signs and Labs for Last 24 Hours: Temp Pulse Resp BP Pulse Ox 98.9 F 56 L 16 102/57 97 02/12/18 04:00 02/12/18 04:00
--- NOTE | 2018-02-12 08:36 | P.PN_ITS ---
<Tiffanie Dela Cruz - Last Filed: 02/12/18 08:32> Internal Medicine - PN: Subj *Date: 02/12/18 *Time: 08:33 Interval history: Patient states he feels about the same today. He is still having abdominal pain and loose stools. He did not rest well throughout the night. Exam Vital signs and Labs for Last 24 Hours: Temp Pulse Resp BP Pulse Ox 98.9 F 56 L 16 102/57 97 02/12/18 04:00 02/12/18 04:00 02/12/18 04:00 02/12/18 04:00 02/12/18 04:00 Laboratory Results - last 24 hr 02/12/18 06:20: WBC 11.4 H D, RBC 4.33 L, Hgb 14.0 L, Hct 43.3, MCV 99.9 H, MCH 32.4 H, MCHC 32.5, RDW 14.8, Plt Count 493 H, MPV 7.9, Neut % (Auto) 79.2, Lymph % (Auto) 13.8, Butts % (Auto) 6.0, Eos % (Auto) 0.8, Baso % (Auto) 0.3, Neut # (Auto) 9.1 H, Lymph # (Auto) 1.6, Butts # (Auto) 0.7, Eos # (Auto) 0.1, Baso # (Auto) 0.0 02/12/18 06:20: D-Dimer 2420 H* 02/12/18 06:20: Sodium 141, Potassium 3.7, Chloride 106, Carbon Dioxide 22 D, Anion Gap 16.7 H, BUN 4 L D, Creatinine 0.85 D, Estimated Creat Clear 58, Estimated GFR 92, Est GFR ( Amer) 111 D, Glucose 101, Calcium 8.5, Total Bilirubin 0.7, AST 10 L D, ALT 10 L, Alkaline Phosphatase 108, Total Protein 6.6, Albumin 2.7 L, Globulin 3.9 H, Albumin/Globulin Ratio 0.7 L I & O for Last 24 hours: Intake & Output 02/09/18 02/10/18 02/11/18 02/12/18 11:59 11:59 11:59 11:59 Intake Total 3849 / 3849 4807 / 4807 3476 / 3476 Output Total 800 / 800 Balance 3849 / 3849 4007 / 4007 3476 / 3476 Weight 116 lb 5 oz 116 lb 4.984 oz Microbiology Reports for the Last 24 Hours: Microbiology 02/09/18 17:24 Blood Blood Culture - Preliminary NO GROWTH AFTER 48 HOURS 02/09/18 17:24 Blood Blood Culture - Preliminary NO GROWTH AFTER 48 HOURS Radiology Reports for the Last 24 Hours: CTA abdomen 1. 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 The celiac and superior mesenteric arteries have an unremarkable appearance. No prominent collateral vessels are evident between the SMA and CUCO branches. 2. Persistent thickening of the sigmoid colon consistent with colitis of the sigmoid colon with extensive diverticulosis. 3. Persistent small rounded fluid collection to the right of the sigmoid colon. Now with a small amount of gas suspicious for small abscess. This is NOT amenable to percutaneous drainage. There is now small amount of fluid in the paracolic gutters and a minimal amount of perihepatic fluid. - Constitutional no acute distress - *Routine Respiratory Exam Present: CTA bilaterally - *Routine Cardiovascular Exam Present: RRR - *Routine Abdominal Exam Present: soft, normoactive bowel sounds, tenderness (in the entire lower abdomen) - *Routine Extremities Exam Absent: edema Assessment and Plan (1) Chronic ischemic colitis Current visit: Yes Status: Acute Category: Medical Code(s): K55.1 - Chronic vascular disorders of intestine (2) Acute diverticulitis Current visit: Yes Status: Acute Category: Medical Code(s): K57.92 - Diverticulitis of intestine, part unspecified, without perforation or abscess without bleeding (3) Hypokalemia Current visit: Yes Status: Acute Category: Medical Code(s): E87.6 - Hypokalemia (4) COPD (chronic obstructive pulmonary disease) Current visit: Yes Status: Chronic Category: Medica
--- NOTE | 2018-02-12 08:56 | PC.NURSE ---
Patient yelling at nurse related to pain medication. Stating that he has been waiting 5 minutes for it and says that he is just hurting. This nurse educated patient on prn medications and how this nurse was in another room at the time. Patient stated he understands but he is hurting and needed his medication immediately. Patient medicated per jul.
--- NOTE | 2018-02-12 13:34 | HMH.PROC ---
[facility] Procedure Note Procedure Note:: Gastroenterology Consultation Date of Service-February 13, 2008 History of Present Illness: Mr. Lu is a 62-year-old gentleman with presentation of lower abdominal pain, cramps and diarrhea and some blood. He did have a CT scan of the abdomen and followed by CT angiography. The angiography did show 95% stenosis of the inferior mesenteric artery. The SMA and celiac vessels were normal. There was no small bowel thickening. There was localized fluid collection adjacent to the sigmoid colon with air suggestive of an abscess (diverticulitis with diverticular abscess). Patient is presently on antibiotics with Levaquin and Flagyl. He is on Malia-Q probiotic. He is also on Bentyl as needed. He is clinically moved. The patient was hospitalized in November 2017 similar event showing thickening of the colon. His sigmoidoscopy at time showed diverticulosis with evidence of diverticulitis. Physical exam: Abdomen: Tenderness in the left lower without rebound or guarding Impression/Plan: 1. Complicated diverticulitis?diverticular sigmoid abscess with air (microperforation). I would recommend intravenous antibiotics with Levaquin and Flagyl. The patient should gradually clinically improved and would consider repeating a scan in 5-7 days. He will need elective sigmoid resection. I have just impacted of healing and continued smoking. 2. 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 Again, we discussed the impact of smoking. This is not mesenteric ischemia since there is abundant collaterals and mesenteric angina/ischemia is primarily involvement of the bowel/right colon and occurs with two-vessel blockage of CUCO plus SMA or SMA plus celiac. This can be acute or chronic but certainly he does not meet clinical criteria or radiologic criteria for this presently. I would recommend smoking cessation and aspirin.
--- NOTE | 2018-02-12 13:45 | SW/DCPLANNER ---
I have provided this patient with steps on how to contact [employer] for assistance with transporting to and from MD appointments. I have explained that it must be a 72 hour notice and patient verbalized that he understood. Patient stated that he is suppose to be discharged tomorrow and I explained the importance of making transportation appointment tomorrow as soon as he know the follow up MD appointment. Patient understood and had no further questions at this time.
--- NOTE | 2018-02-12 14:26 | HMH.GSCON ---
*Admission Date: 02/09/18 *Chief complaint: Complicated diverticulitis *History of present illness: This is a 62-year-old gentleman seen in consultation from Dr. Lundberg for evaluation regarding complex diverticulitis. He has recently been admitted with his second episode of diverticulitis within the past few months. He has been evaluated by the gastroenterology service and recommendations for ongoing antibiotics and close follow-up were made. Consideration of elective surgical intervention in the near future was discussed with the patient and the surgical service was consulted. See forward a copy of HPI from admission H&P below: <Otto Hammonds - 02/10/18 13:15> Mr. Lu is a 62 year old white male smoker with history of COPD and colitis. Ten days ago he developed another episode of lower abdominal pressure and pain that was worse with food. He was previously admitted a few months ago for the same thing. He denies any vomiting but has had constant diarrhea. The pressure got worse until it became a 10/10 and he came to the ED. He has been unable to eat for the past 8 days and has only been drinking soft drinks. He has no primary care physician. He states he has never had a c-scope or seen GI. <MundoomegaTiffanie - 02/10/18 08:16> His PCR diarrhea panel was negative at last visit and also negative last night. K+ noted to be low but improved this AM. He apparently has been able to drink liquids OK and does not appear dehydrated as his BUN is normal, his urine SG is <1.005 and he is not hypotensive. CT scan shows the same area of thickening in the sigmoid colon but also showing an 18 mm fluid density adjacent to the sigmoid raising the question of a small abscess. Further to the above history patient states that after discharge from [facility] in November, he finished the prescribed medications and his pain resolved but he has continued to have diarrhea which he states has been chronic for years. About 10 days ago, he began having low midline and LLQ pain that was worse with eating. No blood in his stools and no fever. Pain progressed until last night he could not stand it any longer and he had a friend bring him to the ER. He was indeed seen by Dr. Castellon for GI consultation during his last admission and underwent a sigmoidoscopy with biopsies and removal of one polyp. He was treated for presumed infectious colitis. His biopsies returned after he was discharged from the hospital and showed ischemic colitis. He was scheduled to see Dr. Castellon for outpt f/u on 12/28/17 but did not keep his appt stating he had no transportation. See forwarded copy of GI consultation below: Gastroenterology Consultation Date of Service-February 13, 2008 History of Present Illness: Mr. Lu is a 62-year-old gentleman with presentation of lower abdominal pain, cramps and diarrhea and some blood. He did have a CT scan of the abdomen and followed by CT angiography. The angiography did show 95% stenosis of the inferior mesenteric artery. The SMA and celiac vessels were normal. There was no small bowel thickening. There was localized fluid collection adjacent to the sigmoid colon with air suggestive of an abscess (diverticulitis with diverticular abscess). Patient is presently on antibiotics with Levaquin and Flagyl. He is on Malia-Q probiotic. He is also on Bentyl as needed. He is clinically moved. The patient was hospitalized in November 2017 similar event showing thickening of the colon. His sigmoidoscopy at time showed diverticulosis with evidence of diverticulitis. Physical exam: Abdomen: Tenderness in the left lower without rebound or guarding Impression/Plan: 1. Complicated diverticulitis?diverticular sigmoid abscess with air (microperforation). I would recommend intravenous antibiotics with Levaquin and Flagyl. The patient should gradually clinically improved and would consider repeating a scan in 5-7 days. He will need elective si
--- NOTE | 2018-02-12 15:00 | DIET.NUTRFU ---
Pt has been NPO for procedure today. Pt has still had some abdominal pain and watery stools. Will continue to supplement diet with Breeze when diet is advanced back to clear liquid and will monitor for further advancement. Recommend advancing diet as tolerated.
[2018-02-12 16:00] VITALS: BP 122/80; PULSE 75; RESP 20; TEMP 36.8; O2SAT 95
[2018-02-12 20:00] VITALS: BP 130/74; PULSE 69; RESP 18; TEMP 36.9; O2SAT 95
--- NOTE | 2018-02-13 03:35 | PC.NURSE ---
Resting w/ eyes closed at this time. Pt has been medicated w/ prn Morphine x2; describes this pain as feeling like pressure in his lower abdomen - rates this pain 03/03. Zofran given @ 1999 for nausea w/o emesis, no further c/o nausea voiced. Has tolerated liquid diet, consuming multiple drinks. Ambulates independently to bathroom, continues to report watery brown stools x2 that he states is normal for him . Pt continues to refuse teds. Bath offered to pt by staff - refused. #20 (R) wrist w/ NS + 20 KCL @ 125 mls/hr. VSS. Will continue to monitor.
[2018-02-13 04:00] VITALS: BP 117/71; PULSE 70; RESP 22; TEMP 36.8; O2SAT 99
--- NOTE | 2018-02-13 06:39 | PC.NURSE ---
Report to be given to A Pratibha,RN
[2018-02-13 08:00] VITALS: BP 113/67; PULSE 71; RESP 20; TEMP 36.9; O2SAT 96
--- NOTE | 2018-02-13 08:10 | HMH.ACPN2 ---
<Tiffanie Dela Cruz - Last Filed: 02/13/18 08:10> Internal Medicine - PN: Subj *Date: 02/13/18 *Time: 08:10 Interval history: Patient states he feels about the same today. Still having abdominal pain and loose stools. He states he was unable to sleep due to people waking him up all night. He has been able to drink but has not been able to eat. Exam Vital signs and Labs for Last 24 Hours: Temp Pulse Resp BP Pulse Ox 98.2 F 70 22 117/71 99 02/13/18 04:00 02/13/18 04:00 02/13/18 04:00 02/13/18 04:00 02/13/18 04:00 I & O for Last 24 hours: Intake & Output 02/10/18 02/11/18 02/12/18 02/13/18 11:59 11:59 11:59 11:59 Intake Total 3849 / 3849 4807 / 4807 3826 / 3826 4353 / 4353 Output Total 800 / 800 600 / 600 Balance 3849 / 3849 4007 / 4007 3826 / 3826 3753 / 3753 Weight 116 lb 5 oz 116 lb 4.984 oz - Constitutional no acute distress - *Routine Respiratory Exam Present: CTA bilaterally - *Routine Cardiovascular Exam Present: RRR - *Routine Abdominal Exam Present: soft, normoactive bowel sounds, tenderness (bilateral lower quadrants) - *Routine Extremities Exam Absent: cyanosis, clubbing, edema Assessment and Plan (1) Chronic ischemic colitis Current visit: Yes Status: Acute Category: Medical Code(s): K55.1 - Chronic vascular disorders of intestine (2) Acute diverticulitis Current visit: Yes Status: Acute Category: Medical Code(s): K57.92 - Diverticulitis of intestine, part unspecified, without perforation or abscess without bleeding (3) Hypokalemia Current visit: Yes Status: Acute Category: Medical Code(s): E87.6 - Hypokalemia (4) COPD (chronic obstructive pulmonary disease) Current visit: Yes Status: Chronic Category: Medical Code(s): J44.9 - Chronic obstructive pulmonary disease, unspecified (5) Tobacco abuse Current visit: No Status: Chronic Category: Medical Code(s): Z72.0 - Tobacco use - Assessment and plan all Dx Assessment and Plan for all problems:: Dr. Mendoza and Dr. Castellon' notes have been reviewed. Will continue IV antibiotics. <Jean Carlos Lundberg - Last Filed: 02/13/18 08:46> Exam Vital signs and Labs for Last 24 Hours: Temp Pulse Resp BP Pulse Ox 98.4 F 71 20 113/67 96 02/13/18 08:00 02/13/18 08:00 02/13/18 08:00 02/13/18 08:00 02/13/18 08:00 Laboratory Results - last 24 hr 02/13/18 08:10: WBC 7.0 D, RBC 3.29 L, Hgb 11.7 L, Hct 32.9 L, MCV 100.0 H, MCH 35.5 H, MCHC 35.5 H, RDW 14.9, Plt Count 379, MPV 8.3, Neut % (Auto) 73.8, Lymph % (Auto) 17.6, [place] % (Auto) 7.6, Eos % (Auto) 0.7, Baso % (Auto) 0.3, Neut # (Auto) 5.2, Lymph # (Auto) 1.2, [place] # (Auto) 0.5, Eos # (Auto) 0.1, Baso # (Auto) 0.0 I & O for Last 24 hours: Intake & Output 02/10/18 02/11/18 02/12/18 02/13/18 11:59 11:59 11:59 11:59 Intake Total 3849 / 3849 4807 / 4807 3826 / 3826 4593 / 4593 Output Total 800 / 800 600 / 600 Balance 3849 / 3849 4007 / 4007 3826 / 3826 3993 / 3993 Weight 116 lb 5 oz 116 lb 4.984 oz Assessment and Plan (1) Chronic ischemic colitis Current visit: Yes Status: Acute Category: Medical Code(s): K55.1 - Chronic vascular disorders of intestine (2) Acute diverticulitis Current visit: Yes Status: Acute Category: Medical Code(s): K57.92 - Diverticulitis of intestine, part unspecified, without perforation or abscess without bleeding (3) Hypokalemia Current visit: Yes Status: Acute Category: Medical Code(s): E87.6 - Hypokalemia (4) COPD (chronic obstructive pulmonary disease) Current visit: Yes Status: Chronic Category: Medical Code(s): J44.9 - Chronic obstructive pulmonary disease, unspecified (5) Tobacco abuse Current visit: No Status: Chronic Category: Medical Code(s): Z72.0 - Tobacco use - Assessment and plan all Dx Assessment and Plan for all problems:: Saw patient, agree with above note.
[2018-02-13 08:18] LABS: Basophils % 0.3 % (0.1-2.0); Eosinophils # 0.1 K/mm3 (0.0-0.4); Eosinophils % 0.7 % (0.1-12.0); Hematocrit 32.9 % (42.0-52.0); Hemoglobin 11.7 g/dL (14.1-18.0); Lymphocytes # 1.2 K/mm3 (0.7-4.5); Lymphocytes % 17.6 K/mm3 (10-50); Mean Corpuscular HGB Conc 35.5 g/dL (31.8-35.4); Mean Corpuscular Hemoglobin 35.5 pg (27.0-31.2); Mean Platelet Volume 8.3 fl (7.4-10.4); Monocytes # 0.5 K/mm3 (0.1-1.0); Monocytes % 7.6 % (1.7-9.3); Neutrophils # 5.2 K/mm3 (1.8-7.8); Neutrophils % 73.8 % (37.0-80.0); Platelet Count 379 K/mm3 (142-424); Red Blood Count 3.29 M/mm3 (4.60-6.20); Red Cell Distribution Width 14.9 % (11.5-17.5)
--- NOTE | 2018-02-13 08:46 | HMH.GSPN ---
Subjective Patient reports: no new complaints, still having pain Exam Vital signs and Labs for Last 24 Hours: Temp Pulse Resp BP Pulse Ox 98.4 F 71 20 113/67 96 02/13/18 08:00 02/13/18 08:00 02/13/18 08:00 02/13/18 08:00 02/13/18 08:00 Laboratory Results - last 24 hr 02/13/18 08:10: WBC 7.0 D, RBC 3.29 L, Hgb 11.7 L, Hct 32.9 L, MCV 100.0 H, MCH 35.5 H, MCHC 35.5 H, RDW 14.9, Plt Count 379, MPV 8.3, Neut % (Auto) 73.8, Lymph % (Auto) 17.6, [place] % (Auto) 7.6, Eos % (Auto) 0.7, Baso % (Auto) 0.3, Neut # (Auto) 5.2, Lymph # (Auto) 1.2, [place] # (Auto) 0.5, Eos # (Auto) 0.1, Baso # (Auto) 0.0 I & O for Last 24 hours: Intake & Output 02/10/18 02/11/18 02/12/18 02/13/18 11:59 11:59 11:59 11:59 Intake Total 3849 / 3849 4807 / 4807 3826 / 3826 4593 / 4593 Output Total 800 / 800 600 / 600 Balance 3849 / 3849 4007 / 4007 3826 / 3826 3993 / 3993 Weight 116 lb 5 oz 116 lb 4.984 oz - Constitutional no acute distress - *Routine Abdominal Exam Present: tenderness Comments: unchanged Progress Note: A&P (1) Chronic ischemic colitis Status: Acute Current Visit: Yes (2) Acute diverticulitis Status: Acute Assessment and plan: continue current care outpatient colorectal surgery follow-up ([facility] facility in [place]) as soon as possible after discharge Current Visit: Yes (3) Hypokalemia Status: Acute Current Visit: Yes (4) COPD (chronic obstructive pulmonary disease) Status: Chronic Current Visit: Yes (5) Tobacco abuse Status: Chronic Current Visit: No
--- NOTE | 2018-02-13 08:54 | HMH.ACPN ---
Internal Medicine - PN: Subj *Date: 02/13/18 *Time: 08:54 Exam Vital signs and Labs for Last 24 Hours: Temp Pulse Resp BP Pulse Ox 98.4 F 71 20 113/67 96 02/13/18 08:00 02/13/18 08:00 02/13/18 08:00 02/13/18 08:00 02/13/18 08:00 Laboratory Results - last 24 hr 02/13/18 08:10: WBC 7.0 D, RBC 3.29 L, Hgb 11.7 L, Hct 32.9 L, MCV 100.0 H, MCH 35.5 H, MCHC 35.5 H, RDW 14.9, Plt Count 379, MPV 8.3, Neut % (Auto) 73.8, Lymph % (Auto) 17.6, [place] % (Auto) 7.6, Eos % (Auto) 0.7, Baso % (Auto) 0.3, Neut # (Auto) 5.2, Lymph # (Auto) 1.2, [place] # (Auto) 0.5, Eos # (Auto) 0.1, Baso # (Auto) 0.0 I & O for Last 24 hours: Intake & Output 02/10/18 02/11/18 02/12/18 02/13/18 23:59 23:59 23:59 23:59 Intake Total 4731 / 4731 3245 / 3245 3906 / 3906 3433 / 3433 Output Total 800 / 800 600 / 600 Balance 3931 / 3931 3245 / 3245 3906 / 3906 2833 / 2833 Weight 52.758 kg Assessment and Plan (1) Chronic ischemic colitis Current visit: Yes Status: Acute Category: Medical Code(s): K55.1 - Chronic vascular disorders of intestine (2) Acute diverticulitis Current visit: Yes Status: Acute Category: Medical Code(s): K57.92 - Diverticulitis of intestine, part unspecified, without perforation or abscess without bleeding (3) Hypokalemia Current visit: Yes Status: Acute Category: Medical Code(s): E87.6 - Hypokalemia (4) COPD (chronic obstructive pulmonary disease) Current visit: Yes Status: Chronic Category: Medical Code(s): J44.9 - Chronic obstructive pulmonary disease, unspecified (5) Tobacco abuse Current visit: No Status: Chronic Category: Medical Code(s): Z72.0 - Tobacco use The patient's infection will respond to the chosen ABx?: Yes Is the patient receiving the right drug, dose, and route?: Yes Could a more targeted ABx be ordered?: No (WBC IMPROVING, CULTURES NEGATIVE)
[2018-02-13 09:14] VITALS: O2SAT 96
[2018-02-13 16:00] VITALS: BP 137/82; PULSE 76; RESP 18; TEMP 36.8; O2SAT 97
[2018-02-13 19:49] VITALS: BP 152/82; PULSE 71; RESP 18; TEMP 36.8; O2SAT 96
[2018-02-13 20:00] VITALS: O2SAT 96
[2018-02-14 03:55] VITALS: BP 137/91; PULSE 100; RESP 18; TEMP 36.8; O2SAT 95
--- NOTE | 2018-02-14 04:35 | PC.NURSE ---
Resting at intervals. Pt has been medicated per Mar w/ Dilaudid x3; continues to describe pain as feeling like pressure in his lower abdomen - rating pain at a 10/10. Zofran given x1 dose at beginning of shift w/ no further complaints. Ambulates independently to bathroom; pt reported small loose/watery brown stools x3. Pt stated to staff that he feels as though he is having trouble starting & keeping it going when he is urinating; states that he has made MD aware. Bath/shower offered to pt by staff -refused. Continues to refuse teds. #20 (R) wrist w/ NS + 20 KCL @ 125 mls/hr. Vss. Will continue to monitor.
--- NOTE | 2018-02-14 06:58 | PC.NURSE ---
Report to be given to A Pratibha,RN
[2018-02-14 07:29] VITALS: O2SAT 95
[2018-02-14 08:00] VITALS: BP 127/76; PULSE 81; RESP 20; TEMP 36.8; O2SAT 97
--- NOTE | 2018-02-14 08:31 | HMH.ACPN2 ---
Internal Medicine - PN: Subj Interval history: States his abdominal pain is better controlled with the Dilaudid. Chief complaint today is urinary hesitancy and some dysuria. Tolerating liquids with no vimiting. Still having mostly liquid stools. Exam Vital signs and Labs for Last 24 Hours: Temp Pulse Resp BP Pulse Ox 98.2 F 81 20 127/76 97 02/14/18 08:00 02/14/18 08:00 02/14/18 08:00 02/14/18 08:00 02/14/18 08:00 I & O for Last 24 hours: Intake & Output 02/11/18 02/12/18 02/13/18 02/14/18 11:59 11:59 11:59 11:59 Intake Total 4807 / 4807 3826 / 3826 4943 / 4943 5213 / 5213 Output Total 800 / 800 600 / 600 200 / 200 Balance 4007 / 4007 3826 / 3826 4343 / 4343 5013 / 5013 Weight 116 lb 4.984 oz - Constitutional no acute distress - *Routine Respiratory Exam Comments: coarse BS, no rales or wheezes - *Routine Cardiovascular Exam Present: RRR - *Routine Abdominal Exam Present: soft. Absent: distended Comments: moderate LLQ tenderness Assessment and Plan (1) Acute diverticulitis Current visit: Yes Status: Acute Category: Medical Code(s): K57.92 - Diverticulitis of intestine, part unspecified, without perforation or abscess without bleeding (2) Chronic ischemic colitis Current visit: Yes Status: Acute Category: Medical Code(s): K55.1 - Chronic vascular disorders of intestine (3) Hypokalemia Current visit: Yes Status: Acute Category: Medical Code(s): E87.6 - Hypokalemia (4) COPD (chronic obstructive pulmonary disease) Current visit: Yes Status: Chronic Category: Medical Code(s): J44.9 - Chronic obstructive pulmonary disease, unspecified (5) Tobacco abuse Current visit: No Status: Chronic Category: Medical Code(s): Z72.0 - Tobacco use (6) Urinary hesitancy Current visit: Yes Status: Acute Category: Medical Code(s): R39.11 - Hesitancy of micturition - Assessment and plan all Dx Assessment and Plan for all problems:: Clinically stable. Will continue IV antibiotics. Will check UA but urinary symptoms are likely related to pain meds.
--- NOTE | 2018-02-14 10:04 | HMH.GSPN ---
Subjective Patient reports: feels better, still having pain Exam Vital signs and Labs for Last 24 Hours: Temp Pulse Resp BP Pulse Ox 98.2 F 81 20 127/76 97 02/14/18 08:00 02/14/18 08:00 02/14/18 08:00 02/14/18 08:00 02/14/18 08:00 I & O for Last 24 hours: Intake & Output 02/11/18 02/12/18 02/13/18 02/14/18 11:59 11:59 11:59 11:59 Intake Total 4807 / 4807 3826 / 3826 4943 / 4943 5213 / 5213 Output Total 800 / 800 600 / 600 200 / 200 Balance 4007 / 4007 3826 / 3826 4343 / 4343 5013 / 5013 Weight 116 lb 4.984 oz - Constitutional no acute distress - *Routine Abdominal Exam Present: soft, tenderness Comments: slightly improved Progress Note: A&P (1) Acute diverticulitis Status: Acute Assessment and plan: slowly improving - Continue current care - Due to comorbid conditions (COPD/Vascular disease), outpatient evaluation by general/colorectal surgeon at tertiary facility very soon after discharge warranted. Current Visit: Yes (2) Chronic ischemic colitis Status: Acute Current Visit: Yes (3) Hypokalemia Status: Acute Current Visit: Yes (4) COPD (chronic obstructive pulmonary disease) Status: Chronic Current Visit: Yes (5) Tobacco abuse Status: Chronic Current Visit: No (6) Urinary hesitancy Status: Acute Current Visit: Yes
[2018-02-14 10:35] LABS: Microscopic, Urine URINE MICROSCOPIC (MICROSCOPIC)
[2018-02-14 10:57] LABS: Appearance,Urine CLEAR (Clear); Bilirubin,Urine Negative (Negative); Blood, Urine 2+ (Negative); Color,Urine YELLOW (Yellow); Glucose,Urine (UA) Negative (Negative); Ketones,Urine 3+ (Negative); Leukocyte Esterase,Urine TRACE (Negative); Nitrate,Urine Negative (Negative); PH,Urine 5.5 (5.0-8.5); Protein,Urine Negative (Negative); Specific Gravity, Urine >= 1.030 (1.005-1.030); Urobilinogen,Urine 0.2 EU/dl (0.2)
[2018-02-14 11:05] LABS: Bacteria,Urine 1+ /lpf; Squamous Epithelial Cell,Urine Occasional #/hpf (0-5)
[2018-02-14 16:00] VITALS: BP 139/77; PULSE 79; RESP 20; TEMP 36.8; O2SAT 96
[2018-02-14 20:00] VITALS: BP 140/83; PULSE 81; RESP 18; TEMP 37.1; O2SAT 94
[2018-02-15 04:00] VITALS: BP 131/81; PULSE 62; RESP 18; TEMP 37; O2SAT 96
--- NOTE | 2018-02-15 05:52 | PC.NURSE ---
Awake most of shift. Pt has been medicated per Mar w/ Dilaudid x3; continues to describe pain as feeling like pressure in his lower abdomen - rating pain at a 10/10. Zofran given x2. Ambulates independently to bathroom; pt reported small loose/watery brown stools x1. Bath/shower offered to pt by staff -refused. Continues to refuse teds. #20 (R) wrist infiltrated; new IV inserted - #20 (L) FA w/NS + 20 KCL @ 125 mls/hr. Vss. Will continue to monitor.
--- NOTE | 2018-02-15 07:00 | PC.NURSE ---
Report to be given to Tracey Gregory RN
[2018-02-15 07:44] LABS: Hematocrit 36.6 % (42.0-52.0); Hemoglobin 11.7 g/dL (14.1-18.0); Mean Corpuscular HGB Conc 31.8 g/dL (31.8-35.4); Mean Corpuscular Hemoglobin 31.7 pg (27.0-31.2); Mean Corpuscular Volume 99.4 fl (80-94); Red Blood Count 3.68 M/mm3 (4.60-6.20); Red Cell Distribution Width 14.9 % (11.5-17.5); White Blood Count 5.8 K/mm3 (4.8-10.8)
--- NOTE | 2018-02-15 07:44 | P.PN_ITS ---
Subjective Patient reports: still having pain (unhappy this AM due to not getting better fast enough ) Exam Vital signs and Labs for Last 24 Hours: Temp Pulse Resp BP Pulse Ox 98.6 F 62 18 131/81 96 02/15/18 04:00 02/15/18 04:00 02/15/18 04:00 02/15/18 04:00 02/15/18 04:00 Laboratory Results - last 24 hr 02/14/18 10:30: Urine Color Yellow, Urine Appearance Clear, Urine pH 5.5, Ur Specific [place] >= 1.030, Urine Protein Negative, Urine Glucose (UA) Negative, Urine Ketones 3+, Urine Blood 2+, Urine Nitrate Negative, Urine Bilirubin Negative, Urine Urobilinogen 0.2, Ur Leukocyte Esterase Trace, Urine RBC 5-10, Urine WBC 3-5, Ur Squamous Epith Cells Occasional, Urine Bacteria 1+ I & O for Last 24 hours: Intake & Output 02/12/18 02/13/18 02/14/18 02/15/18 11:59 11:59 11:59 11:59 Intake Total 3826 / 3826 4943 / 4943 5463 / 5463 2047 / 2047 Output Total 600 / 600 200 / 200 150 / 150 Balance 3826 / 3826 4343 / 4343 5263 / 5263 1897 / 1897 Weight 125 lb Microbiology Reports for the Last 24 Hours: Microbiology 02/09/18 17:24 Blood Blood Culture - Final NO GROWTH AFTER 5 DAYS 02/09/18 17:24 Blood Blood Culture - Final NO GROWTH AFTER 5 DAYS - Constitutional no acute distress - *Routine Abdominal Exam Comments: unchanged Progress Note: A&P (1) Acute diverticulitis Status: Acute Assessment and plan: continue abx f/u pending labs may require transfer to tertiary center for further management if he does not continue to improve (may also develop focal ischemia) Current Visit: Yes (2) Chronic ischemic colitis Status: Acute Current Visit: Yes (3) Hypokalemia Status: Acute Current Visit: Yes (4) COPD (chronic obstructive pulmonary disease) Status: Chronic Current Visit: Yes (5) Tobacco abuse Status: Chronic Current Visit: No (6) Urinary hesitancy Status: Acute Current Visit: Yes
[2018-02-15 07:45] LABS: Basophils % 0.5 % (0.1-2.0); Eosinophils # 0.1 K/mm3 (0.0-0.4); Eosinophils % 0.9 % (0.1-12.0); Lymphocytes # 1.3 K/mm3 (0.7-4.5); Lymphocytes % 22.1 K/mm3 (10-50); Mean Platelet Volume 7.3 fl (7.4-10.4); Monocytes # 0.6 K/mm3 (0.1-1.0); Monocytes % 9.8 % (1.7-9.3); Neutrophils # 3.9 K/mm3 (1.8-7.8); Neutrophils % 66.7 % (37.0-80.0); Platelet Count 429 K/mm3 (142-424)
[2018-02-15 07:52] LABS: Anion Gap 12.8 mEq/L (5-15); Blood Urea Nitrogen 1 mg/dL (7-18); Calcium 7.6 mg/dL (8.5-10.1); Carbon Dioxide 24 mmol/L (21.0-32.0); Chloride 106 mmol/L (98-107); Creatinine Clearance Estimated 62 mL/min (0-300); Creatinine,Serum 0.59 mg/dL (0.70-1.30); Estimated Glomerular Filt Rate 140 ml/min (>60); GFR (African American) 169 ML/MIN (>60); Glucose 95 mg/dL (74-106); Potassium 3.8 mmoL/L (3.5-5.1); Sodium 139 mmol/L (136-145)
[2018-02-15 08:00] VITALS: BP 144/72; PULSE 74; RESP 18; TEMP 37.4; O2SAT 93
--- NOTE | 2018-02-15 08:05 | HMH.ACPN2 ---
<Jessica Hawley - Last Filed: 02/15/18 08:05> Internal Medicine - PN: Subj *Date: 02/15/18 *Time: 08:00 Interval history: Patient states he may feel a little bit better since admission. Still has abdominal pain. He has sudden onset of vomiting. He has been retaining [place] liquids. He has ambulated in the room. Is voiding QS. His bowels move a little bit every day. Respiratory status is at baseline. He denies cardiac Exam Vital signs and Labs for Last 24 Hours: Temp Pulse Resp BP Pulse Ox 99.3 F 74 18 144/72 93 L 02/15/18 08:00 02/15/18 08:00 02/15/18 08:00 02/15/18 08:00 02/15/18 08:00 Laboratory Results - last 24 hr 02/14/18 10:30: Urine Color Yellow, Urine Appearance Clear, Urine pH 5.5, Ur Specific [place] >= 1.030, Urine Protein Negative, Urine Glucose (UA) Negative, Urine Ketones 3+, Urine Blood 2+, Urine Nitrate Negative, Urine Bilirubin Negative, Urine Urobilinogen 0.2, Ur Leukocyte Esterase Trace, Urine RBC 5-10, Urine WBC 3-5, Ur Squamous Epith Cells Occasional, Urine Bacteria 1+ 02/15/18 07:25: WBC 5.8, RBC 3.68 L, Hgb 11.7 L, Hct 36.6 L, MCV 99.4 H, MCH 31.7 H, MCHC 31.8, RDW 14.9, Plt Count 429 H, MPV 7.3 L, Neut % (Auto) 66.7, Lymph % (Auto) 22.1, [place] % (Auto) 9.8 H, Eos % (Auto) 0.9, Baso % (Auto) 0.5, Neut # (Auto) 3.9, Lymph # (Auto) 1.3, [place] # (Auto) 0.6, Eos # (Auto) 0.1, Baso # (Auto) 0.0 I & O for Last 24 hours: Intake & Output 02/12/18 02/13/18 02/14/18 02/15/18 11:59 11:59 11:59 11:59 Intake Total 3826 / 3826 4943 / 4943 5463 / 5463 2467 / 2467 Output Total 600 / 600 200 / 200 150 / 150 Balance 3826 / 3826 4343 / 4343 5263 / 5263 2317 / 2317 Weight 125 lb Microbiology Reports for the Last 24 Hours: Microbiology 02/09/18 17:24 Blood Blood Culture - Final NO GROWTH AFTER 5 DAYS 02/09/18 17:24 Blood Blood Culture - Final NO GROWTH AFTER 5 DAYS - Constitutional no acute distress Comments: Sitting up in the bed. Thin - *Routine Respiratory Exam Comments: Scattered rhonchi bilaterally posteriorly - *Routine Cardiovascular Exam Present: RRR - *Routine Abdominal Exam Present: soft, normoactive bowel sounds, tenderness (In lower quadrants), distended (Slightly distended and upper abdomen) - *Routine Extremities Exam Absent: edema, calf tenderness - *Routine Neurological Exam Present: alert, oriented X3 Assessment and Plan (1) Acute diverticulitis Current visit: Yes Status: Acute Category: Medical Code(s): K57.92 - Diverticulitis of intestine, part unspecified, without perforation or abscess without bleeding (2) Chronic ischemic colitis Current visit: Yes Status: Acute Category: Medical Code(s): K55.1 - Chronic vascular disorders of intestine (3) Hypokalemia Current visit: Yes Status: Acute Category: Medical Code(s): E87.6 - Hypokalemia (4) COPD (chronic obstructive pulmonary disease) Current visit: Yes Status: Chronic Category: Medical Code(s): J44.9 - Chronic obstructive pulmonary disease, unspecified (5) Tobacco abuse Current visit: No Status: Chronic Category: Medical Code(s): Z72.0 - Tobacco use (6) Urinary hesitancy Current visit: Yes Status: Acute Category: Medical Code(s): R39.11 - Hesitancy of micturition - Assessment and plan all Dx Assessment and Plan for all problems:: Reviewed Dr. Meyers's note. We will continue with IV fluids and antibiotic and pain management. <Otto Hammonds - Last Filed: 02/16/18 08:51> Exam Vital signs and Labs for Last 24 Hours: Temp Pulse Resp BP Pulse Ox 98.1 F 63 18 139/85 97 02/16/18 04:00 02/16/18 04:00 02/16/18 04:00 02/16/18 04:00 02/16/18 04:00 I & O for Last 24 hours: Intake & Output 02/13/18 02/14/18 02/15/18 02/16/18 11:59 11:59 11:59 11:59 Intake Total 4943 / 4943 5463 / 5463 3057 / 3057 3861 / 3861 Output Total 600 / 600 200
--- NOTE | 2018-02-15 08:08 | P.PN_ITS ---
<Jessica Hawley - Last Filed: 02/15/18 08:05> Internal Medicine - PN: Subj *Date: 02/15/18 *Time: 08:00 Interval history: Patient states he may feel a little bit better since admission. Still has abdominal pain. He has sudden onset of vomiting. He has been retaining [place] liquids. He has ambulated in the room. Is voiding QS. His bowels move a little bit every day. Respiratory status is at baseline. He denies cardiac Exam Vital signs and Labs for Last 24 Hours: Temp Pulse Resp BP Pulse Ox 99.3 F 74 18 144/72 93 L 02/15/18 08:00 02/15/18 08:00 02/15/18 08:00 02/15/18 08:00 02/15/18 08:00 Laboratory Results - last 24 hr 02/14/18 10:30: Urine Color Yellow, Urine Appearance Clear, Urine pH 5.5, Ur Specific [place] >= 1.030, Urine Protein Negative, Urine Glucose (UA) Negative, Urine Ketones 3+, Urine Blood 2+, Urine Nitrate Negative, Urine Bilirubin Negative, Urine Urobilinogen 0.2, Ur Leukocyte Esterase Trace, Urine RBC 5-10, Urine WBC 3-5, Ur Squamous Epith Cells Occasional, Urine Bacteria 1+ 02/15/18 07:25: WBC 5.8, RBC 3.68 L, Hgb 11.7 L, Hct 36.6 L, MCV 99.4 H, MCH 31.7 H, MCHC 31.8, RDW 14.9, Plt Count 429 H, MPV 7.3 L, Neut % (Auto) 66.7, Lymph % (Auto) 22.1, [place] % (Auto) 9.8 H, Eos % (Auto) 0.9, Baso % (Auto) 0.5, Neut # (Auto) 3.9, Lymph # (Auto) 1.3, [place] # (Auto) 0.6, Eos # (Auto) 0.1, Baso # (Auto) 0.0 I & O for Last 24 hours: Intake & Output 02/12/18 02/13/18 02/14/18 02/15/18 11:59 11:59 11:59 11:59 Intake Total 3826 / 3826 4943 / 4943 5463 / 5463 2467 / 2467 Output Total 600 / 600 200 / 200 150 / 150 Balance 3826 / 3826 4343 / 4343 5263 / 5263 2317 / 2317 Weight 125 lb Microbiology Reports for the Last 24 Hours: Microbiology 02/09/18 17:24 Blood Blood Culture - Final NO GROWTH AFTER 5 DAYS 02/09/18 17:24 Blood Blood Culture - Final NO GROWTH AFTER 5 DAYS - Constitutional no acute distress Comments: Sitting up in the bed. Thin - *Routine Respiratory Exam Comments: Scattered rhonchi bilaterally posteriorly - *Routine Cardiovascular Exam Present: RRR - *Routine Abdominal Exam Present: soft, normoactive bowel sounds, tenderness (In lower quadrants), distended (Slightly distended and upper abdomen) - *Routine Extremities Exam Absent: edema, calf tenderness - *Routine Neurological Exam Present: alert, oriented X3 Assessment and Plan (1) Acute diverticulitis Current visit: Yes Status: Acute Category: Medical Code(s): K57.92 - Diverticulitis of intestine, part unspecified, without perforation or abscess without bleeding (2) Chronic ischemic colitis Current visit: Yes Status: Acute Category: Medical Code(s): K55.1 - Chronic vascular disorders of intestine (3) Hypokalemia Current visit: Yes Status: Acute Category: Medical Code(s): E87.6 - Hypokalemia (4) COPD (chronic obstructive pulmonary disease) Current visit: Yes Status: Chronic Category: Medical Code(s): J44.9 - Chronic obstructive pulmonary disease, unspecified (5) Tobacco abuse Current visit: No Status: Chronic Category: Medical Code(s): Z72.0 - Tobacco use (6) Urinary hesitancy Current visit: Yes Status: Acute Category: Medical Code(s): R39.11 - Hesitancy of micturition - Assessment an
[2018-02-15 08:37] LABS: Lactic Acid 0.7 mmol/L (0.4-2.0)
--- NOTE | 2018-02-15 13:42 | DIET.NUTRFU ---
day 5 npo/clears. Patient with nutritional diagnosis of moderate protein calorie malnutrition on admission. Patient is being provided Breeze supplements but has poor acceptance to these. He continues to primarily drink Mt Dew as source of his nutrition. He reports feeling badly today. Patient is unreceptive to alternative nutrition sources other than Mt Dew. Consideration of tpn to improve patient nutritional status.
[2018-02-15 15:22] VITALS: BP 138/88; PULSE 79; RESP 18; TEMP 36.8; O2SAT 97
--- NOTE | 2018-02-15 16:12 | PC.NURSE ---
Pt resting in bed. Up ad [place] to and from bathroom, gait steady. A/o x 3, verbalizes needs. C/o's lower abdominal pain throughout shift with relief noted with PRN pain medication. 20g IV to LFA, patent and intact with NS with 20 mEq's of K+ infusing. Continues with CLD, poor appetite noted. C/o's nausea throughout shift, no vomiting, PRN meds given with relief noted. Pt took shower early this AM. Call light within reach, will continue to observe for any changes.
--- NOTE | 2018-02-15 18:21 | PC.NURSE ---
Pt ambulated in hallway, >5 trips around unit. Gait steady, pt tolerated ambulation well with no dizziness.
--- NOTE | 2018-02-15 19:19 | PC.NURSE ---
report given to susan
[2018-02-15 20:00] VITALS: BP 134/86; PULSE 66; RESP 18; TEMP 37.3; O2SAT 96
[2018-02-15 20:26] VITALS: O2SAT 97
[2018-02-16 04:00] VITALS: BP 139/85; PULSE 63; RESP 18; TEMP 36.7; O2SAT 97
--- NOTE | 2018-02-16 04:22 | PC.NURSE ---
Pt is A&Ox4 and has ambulated independently several times this shift, pt tolerated well. Pt has c/o pain 3x this shift, medicated per JUL. ABD is soft, and tender to palpation, BS hyperactive x4 quads. Pt states he continues to have watery diarrhea this shift. Pt c/o dysuria, frequency, and hesitancy. Bilat rhonchi is noted on lung auscultation. Teds refused this shift. Pulses 2+, no edema noted. VSS. Will continue to monitor.
--- NOTE | 2018-02-16 07:32 | PC.NURSE ---
REPORT GIVEN TO Juan Antonio ERAZO W/C
[2018-02-16 08:00] VITALS: BP 138/82; PULSE 68; RESP 16; TEMP 36.8; O2SAT 95
--- NOTE | 2018-02-16 08:26 | HMH.GSPN ---
Subjective Patient reports: no new complaints, feels better, still having pain (Overall, better this AM.) Exam Vital signs and Labs for Last 24 Hours: Temp Pulse Resp BP Pulse Ox 98.1 F 63 18 139/85 97 02/16/18 04:00 02/16/18 04:00 02/16/18 04:00 02/16/18 04:00 02/16/18 04:00 Laboratory Results - last 24 hr 02/15/18 08:15: Lactate 0.7 I & O for Last 24 hours: Intake & Output 02/13/18 02/14/18 02/15/18 02/16/18 11:59 11:59 11:59 11:59 Intake Total 4943 / 4943 5463 / 5463 3057 / 3057 3861 / 3861 Output Total 600 / 600 200 / 200 150 / 150 Balance 4343 / 4343 5263 / 5263 2907 / 2907 3861 / 3861 Weight 125 lb - Constitutional no acute distress - *Routine Respiratory Exam Absent: respiratory distress - *Routine Abdominal Exam Present: soft Progress Note: A&P (1) Acute diverticulitis Status: Acute Assessment and plan: WBC normal. Abdominal pain a little better ) Continue management as per PCP Outpatient follow-up at tertiary center. Current Visit: Yes (2) Chronic ischemic colitis Status: Acute Assessment and plan: Lactate normal Current Visit: Yes (3) Hypokalemia Status: Acute Current Visit: Yes (4) COPD (chronic obstructive pulmonary disease) Status: Chronic Current Visit: Yes (5) Tobacco abuse Status: Chronic Current Visit: No (6) Urinary hesitancy Status: Acute Current Visit: Yes
--- NOTE | 2018-02-16 08:43 | HMH.ACPN2 ---
<Jessica Hawley - Last Filed: 02/16/18 08:56> Internal Medicine - PN: Subj Interval history: Patient continues to have abdominal pain and requires regular pain medicine. He does state that the pain may be a little bit better. He continues with sudden onset of nausea requiring regular anti-medics. He is taking very little p.o. liquids. He does not want food. Bowels move daily and he had a small bowel this a.m. Breathing is at his normal. Denies chest pain. He ambulates in the room. Has been seen by Dr. Mendoza and note reviewed. Exam Vital signs and Labs for Last 24 Hours: Temp Pulse Resp BP Pulse Ox 98.1 F 63 18 139/85 97 02/16/18 04:00 02/16/18 04:00 02/16/18 04:00 02/16/18 04:00 02/16/18 04:00 I & O for Last 24 hours: Intake & Output 02/13/18 02/14/18 02/15/18 02/16/18 11:59 11:59 11:59 11:59 Intake Total 4943 / 4943 5463 / 5463 3057 / 3057 3861 / 3861 Output Total 600 / 600 200 / 200 150 / 150 Balance 4343 / 4343 5263 / 5263 2907 / 2907 3861 / 3861 Weight 125 lb - Constitutional no acute distress Comments: Initially was sleeping soundly at 8 AM. Upon revisit he was up in the room after going to the bathroom. - *Routine Respiratory Exam Comments: Decreased breath sounds posteriorly - *Routine Cardiovascular Exam Present: RRR - *Routine Abdominal Exam Comments: Seems more soft today. Positive bowel sounds. No guarding or rigidity. - *Routine Extremities Exam Absent: edema, calf tenderness - *Routine Neurological Exam Present: alert, oriented X3 Assessment and Plan (1) Acute diverticulitis Current visit: Yes Status: Acute Category: Medical Code(s): K57.92 - Diverticulitis of intestine, part unspecified, without perforation or abscess without bleeding (2) Chronic ischemic colitis Current visit: Yes Status: Acute Category: Medical Code(s): K55.1 - Chronic vascular disorders of intestine (3) Hypokalemia Current visit: Yes Status: Acute Category: Medical Code(s): E87.6 - Hypokalemia (4) COPD (chronic obstructive pulmonary disease) Current visit: Yes Status: Chronic Category: Medical Code(s): J44.9 - Chronic obstructive pulmonary disease, unspecified (5) Tobacco abuse Current visit: No Status: Chronic Category: Medical Code(s): Z72.0 - Tobacco use (6) Urinary hesitancy Current visit: Yes Status: Acute Category: Medical Code(s): R39.11 - Hesitancy of micturition - Assessment and plan all Dx Assessment and Plan for all problems:: Dr. Hammonds had a lengthy conversation with the patient about options for treatment after being on ABX for 1 week with concern for the necessity of regular pain management as an indication that he is not improving. Possible surgery was again discussed with the patient. We will continue with IV fluids and antibiotics. <Otto Hammonds - Last Filed: 02/16/18 17:42> Exam Vital signs and Labs for Last 24 Hours: Temp Pulse Resp BP Pulse Ox 98.2 F 65 18 135/82 98 02/16/18 15:20 02/16/18 15:20 02/16/18 15:20 02/16/18 15:20 02/16/18 15:20 I & O for Last 24 hours: Intake & Output 02/14/18 02/15/18 02/16/18 02/17/18 11:59 11:59 11:59 11:59 Intake Total 5463 / 5463 3057 / 3057 3961 / 3961 1458.333 / 1458.333 Output Total 200 / 200 150 / 150 Balance 5263 / 5263 2907 / 2907 3961 / 3961 1458.333 / 1458.333 Weight 125 lb Assessment and Plan (1) Acute diverticulitis Current visit: Yes Status: Acute Category: Medical Code(s): K57.92 - Diverticulitis of intestine, part unspecified, without perforation or abscess without bleeding (2) Chronic ischemic colitis Current visit: Yes Status: Acute Category: Medical Code(s): K55.1 - Chronic vascular disorders of intestine (3) Hypokalemia Current visit: Yes Status: Acute Category: Medical Code(s): E87.6 - Hypokalemia (4) COPD (chronic obstructive pulmonary disease) C
--- NOTE | 2018-02-16 08:45 | PC.NURSE ---
Report given to Lillian ROBERTSON
--- NOTE | 2018-02-16 08:47 | P.PN_ITS ---
<Jessica Hawley - Last Filed: 02/16/18 08:56> Internal Medicine - PN: Subj Interval history: Patient continues to have abdominal pain and requires regular pain medicine. He does state that the pain may be a little bit better. He continues with sudden onset of nausea requiring regular anti-medics. He is taking very little p.o. liquids. He does not want food. Bowels move daily and he had a small bowel this a.m. Breathing is at his normal. Denies chest pain. He ambulates in the room. Has been seen by Dr. Mendoza and note reviewed. Exam Vital signs and Labs for Last 24 Hours: Temp Pulse Resp BP Pulse Ox 98.1 F 63 18 139/85 97 02/16/18 04:00 02/16/18 04:00 02/16/18 04:00 02/16/18 04:00 02/16/18 04:00 I & O for Last 24 hours: Intake & Output 02/13/18 02/14/18 02/15/18 02/16/18 11:59 11:59 11:59 11:59 Intake Total 4943 / 4943 5463 / 5463 3057 / 3057 3861 / 3861 Output Total 600 / 600 200 / 200 150 / 150 Balance 4343 / 4343 5263 / 5263 2907 / 2907 3861 / 3861 Weight 125 lb - Constitutional no acute distress Comments: Initially was sleeping soundly at 8 AM. Upon revisit he was up in the room after going to the bathroom. - *Routine Respiratory Exam Comments: Decreased breath sounds posteriorly - *Routine Cardiovascular Exam Present: RRR - *Routine Abdominal Exam Comments: Seems more soft today. Positive bowel sounds. No guarding or rigidity. - *Routine Extremities Exam Absent: edema, calf tenderness - *Routine Neurological Exam Present: alert, oriented X3 Assessment and Plan (1) Acute diverticulitis Current visit: Yes Status: Acute Category: Medical Code(s): K57.92 - Diverticulitis of intestine, part unspecified, without perforation or abscess without bleeding (2) Chronic ischemic colitis Current visit: Yes Status: Acute Category: Medical Code(s): K55.1 - Chronic vascular disorders of intestine (3) Hypokalemia Current visit: Yes Status: Acute Category: Medical Code(s): E87.6 - Hypokalemia (4) COPD (chronic obstructive pulmonary disease) Current visit: Yes Status: Chronic Category: Medical Code(s): J44.9 - Chronic obstructive pulmonary disease, unspecified (5) Tobacco abuse Current visit: No Status: Chronic Category: Medical Code(s): Z72.0 - Tobacco use (6) Urinary hesitancy Current visit: Yes Status: Acute Category: Medical Code(s): R39.11 - Hesitancy of micturition - Assessment and plan all Dx Assessment and Plan for all problems:: Dr. Hammonds had a lengthy conversation with the patient about options for treatment after being on ABX for 1 week with concern for the necessity of regular pain management as an indication that he is not improving. Possible surgery was again discussed with the patient. We will continue with IV fluids and antibiotics. <Otto Hammonds - Last Filed: 02/16/18 17:42> Exam Vital signs and Labs for Last 24 Hours: Temp Pulse Resp BP Pulse Ox 98.2 F 65 18 135/82 98 02/16/18 15:20 02/16/18 15:20 02/16/18 15:20 02/16/18 15:20 02/16/18 15:20 I & O for Last 24 hours: Intake & Output 02/14/18 02/15/18 02/16/18 02/17/18 11
[2018-02-16 09:52] VITALS: RESP 18
[2018-02-16 15:20] VITALS: BP 135/82; PULSE 65; RESP 18; TEMP 36.8; O2SAT 98
--- NOTE | 2018-02-16 18:01 | PC.NURSE ---
Pt alert and oriented X4, resp easy, lungs with bilateral rhonchi, no cough, abdomen soft and tender to touch, continues to have watery diarrhea stools, voiding without difficulty. Pt complains of abdominal discomfort and has received Dilaudid 1mg IVP 3x this shift. Pt ambulated to bathroom per self, refused TEDs
[2018-02-16 20:00] VITALS: BP 143/83; PULSE 61; RESP 14; TEMP 36.9; O2SAT 97
[2018-02-16 20:40] VITALS: O2SAT 97
[2018-02-17] VITALS (7 sets, daily range): BP systolic 133–157; BP diastolic 79–93; PULSE 67–74; RESP 14–21; TEMP 36.4–37.1; O2SAT 93–100
--- NOTE | 2018-02-17 04:26 | PC.NURSE ---
Pt is A&Ox4 and has ambulated independently to BR 2x this shift, pt tolerated well. Pt continues to c/o of abdominal pain 03/03 on [place] HAND several times, medicated per MAR 3x this shift. Pt offered Bentyl for stomach pain, pt refused, stakes he is too sick to take a pill . ABD is soft, tender to palpation, BS hyperactive x4 quads. Pt denies N/V/D. Pt reports 1 small soft formed BM this shift. Pt has a poor appetite, very little oral fluid intake this shift. Scattered wheezing noted on lung auscultation. Pt denies any SOB or cough. Pulses 2+, no edema noted. VSS. Will continue to monitor.
--- NOTE | 2018-02-17 07:42 | PC.NURSE ---
REPORT RECEIVED FROM RAH ROBERTSON
--- NOTE | 2018-02-17 07:48 | PC.NURSE ---
Report given to Julita ROBERTSON
--- NOTE | 2018-02-17 07:53 | HMH.ACPN2 ---
<Tiffanie Dela Cruz - Last Filed: 02/17/18 07:53> Internal Medicine - PN: Subj *Date: 02/17/18 *Time: 07:53 Interval history: Patient continues to have abdominal pain and requires regular pain medicine. He states he is about the same as yesterday. Still having nausea requiring regular anti-medics. He is taking very little p.o. liquids. He is drinking Mt. Dew. He does not want food. Bowels moved and he had a small formed stool. Exam Vital signs and Labs for Last 24 Hours: Temp Pulse Resp BP Pulse Ox 98.0 F 67 21 149/93 93 L 02/17/18 04:00 02/17/18 04:00 02/17/18 06:17 02/17/18 04:00 02/17/18 04:00 I & O for Last 24 hours: Intake & Output 02/14/18 02/15/18 02/16/18 02/17/18 11:59 11:59 11:59 11:59 Intake Total 5463 / 5463 3057 / 3057 4111 / 4111 3183.333 / 3183.333 Output Total 200 / 200 150 / 150 Balance 5263 / 5263 2907 / 2907 4111 / 4111 3183.333 / 3183.333 Weight 125 lb - Constitutional no acute distress - *Routine Respiratory Exam Present: CTA bilaterally - *Routine Cardiovascular Exam Present: RRR - *Routine Abdominal Exam Present: soft, normoactive bowel sounds, tenderness (diffuse but worse in the bilateral lower quadrants) - *Routine Extremities Exam Absent: cyanosis, clubbing, edema Assessment and Plan (1) Acute diverticulitis Current visit: Yes Status: Acute Category: Medical Code(s): K57.92 - Diverticulitis of intestine, part unspecified, without perforation or abscess without bleeding (2) Chronic ischemic colitis Current visit: Yes Status: Acute Category: Medical Code(s): K55.1 - Chronic vascular disorders of intestine (3) Hypokalemia Current visit: Yes Status: Acute Category: Medical Code(s): E87.6 - Hypokalemia (4) COPD (chronic obstructive pulmonary disease) Current visit: Yes Status: Chronic Category: Medical Code(s): J44.9 - Chronic obstructive pulmonary disease, unspecified (5) Tobacco abuse Current visit: No Status: Chronic Category: Medical Code(s): Z72.0 - Tobacco use (6) Urinary hesitancy Current visit: Yes Status: Acute Category: Medical Code(s): R39.11 - Hesitancy of micturition - Assessment and plan all Dx Assessment and Plan for all problems:: Will discuss further care with Dr. Hammonds. May need repeat CT or transfer. <Otto Hammonds - Last Filed: 02/17/18 08:43> Exam Vital signs and Labs for Last 24 Hours: Temp Pulse Resp BP Pulse Ox 98.8 F 71 18 135/79 93 L 02/17/18 08:00 02/17/18 08:00 02/17/18 08:00 02/17/18 08:00 02/17/18 08:00 I & O for Last 24 hours: Intake & Output 02/14/18 02/15/18 02/16/18 02/17/18 11:59 11:59 11:59 11:59 Intake Total 5463 / 5463 3057 / 3057 4111 / 4111 3523.333 / 3523.333 Output Total 200 / 200 150 / 150 Balance 5263 / 5263 2907 / 2907 4111 / 4111 3523.333 / 3523.333 Weight 125 lb Assessment and Plan (1) Acute diverticulitis Current visit: Yes Status: Acute Category: Medical Code(s): K57.92 - Diverticulitis of intestine, part unspecified, without perforation or abscess without bleeding (2) Chronic ischemic colitis Current visit: Yes Status: Acute Category: Medical Code(s): K55.1 - Chronic vascular disorders of intestine (3) Hypokalemia Current visit: Yes Status: Acute Category: Medical Code(s): E87.6 - Hypokalemia (4) COPD (chronic obstructive pulmonary disease) Current visit: Yes Status: Chronic Category: Medical Code(s): J44.9 - Chronic obstructive pulmonary disease, unspecified (5) Tobacco abuse Current visit: No Status: Chronic Category: Medical Code(s): Z72.0 - Tobacco use (6) Urinary hesitancy Current visit: Yes Status: Acute Category: Medical Code(s): R39.11 - Hesitancy of micturition - Assessment and plan all Dx Assessment and Plan for all problems:: Patient seen and examined. Stable but not improving. Will repeat CT scan today and
--- NOTE | 2018-02-17 08:43 | CT_ITS ---
CT abdomen pelvis w con CLINICAL INDICATION: Periumbilical pain, lower abdominal pain, diverticulitis, abscess follow-up ITS.REASON: f/u diverticulitis ORDERING PHYSICIAN: Otto Hammonds MD PATIENT AGE: 62 years COMPARISON: 02/11/2018 TECHNIQUE: Axial images obtained with sagittal and coronal reformats. All CT scans at the facility use one or more dose reduction, viz: automated exposure control, ma/kV adjustment per patient size (including targeted exams where dose is matched to indication, i.e. head), or iterative reconstruction technique. PROCEDURE: Oral Contrast: Gastroview IV Contrast: 100 mL of Isovue-370. FINDINGS: Small bilateral pleural effusions have developed with atelectatic changes in the lung bases. There is a small hiatal hernia. There is increased density within the fundus of the gallbladder consistent with sludge which is developed in the interval. The liver, spleen, adrenal glands, and kidneys have an unremarkable appearance. There remains marked thickening of the sigmoid colon with multiple diverticula. The previously noted fluid collection adjacent to the sigmoid colon on the right is less apparent.. There is mild diffuse subcutaneous edema which is developed along the trunk and pelvis. There is mild thickening of the urinary bladder. No free air apparent. 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 There is no evidence of pneumatosis or free air. No portal venous gas. IMPRESSION: 1. Persistent moderate to severe thickening of the sigmoid colon with mild stranding of the pericolic fat system with colitis. 2. The small abscess adjacent to the right aspect of the sigmoid colon is less apparent. There is some soft tissue thickening in this region but the air-fluid levels no longer apparent. 3. Interval development of small bilateral pleural effusion with atelectatic changes in the lung bases and diffuse subcutaneous edema. 4. Gallbladder sludge
--- NOTE | 2018-02-17 18:37 | PC.NURSE ---
PATIENT HAS RESTED ON AND OFF ON MY SHIFT. BOWEL SOUNDS REMAIN ACTIVE AND ABD TENDER. PATIENT HAS HAD NAUSEA/VOMITING ONCE TODAY AFTER HIS ORAL CONTRAST. PAIN RATED PAIN AN 10/ 10 ALL DAY TODAY AND ASKS FOR PAIN MEDICATION EVERY 4 HOURS- SEE JUL. CT WAS DONE TODAY AND PATIENT IS NOW ON CLEAR DIET AGAIN- PATIENT IS ONLY DRINKING MT. DEW. NO NEEDS VOICED TO NURSE. CALL LIGHT WITHIN REACH.
--- NOTE | 2018-02-17 19:13 | PC.NURSE ---
REPORT TO Kevin AMAYA RN
--- NOTE | 2018-02-17 19:18 | PC.NURSE ---
report given to domenica
--- NOTE | 2018-02-18 03:20 | PC.NURSE ---
pt rested at interval this shift. he has required his pain medications per mar. he refused to take the medication for stomach pain and only wanted the dilaudid. pt stated he had two loose stools this shift. VSS. will cont. to monitor.
[2018-02-18 04:00] VITALS: BP 136/80; PULSE 80; RESP 14; TEMP 37.1; O2SAT 95
--- NOTE | 2018-02-18 06:29 | PC.NURSE ---
pt rested at interval this shift. he has required his pain medications per mar. he refused to take the medication for stomach pain and only wanted the dilaudid. pt also had multiple vomiting episodes, medicated per mar. pt stated he had two loose stools this shift. VSS. will cont. to monitor.
[2018-02-18 07:18] LABS: Basophils % 0.8 % (0.1-2.0); Eosinophils # 0.1 K/mm3 (0.0-0.4); Eosinophils % 2.1 % (0.1-12.0); Hematocrit 36.6 % (42.0-52.0); Hemoglobin 11.7 g/dL (14.1-18.0); Lymphocytes # 1.1 K/mm3 (0.7-4.5); Lymphocytes % 35.1 K/mm3 (10-50); Mean Platelet Volume 7.6 fl (7.4-10.4); Monocytes # 0.4 K/mm3 (0.1-1.0); Monocytes % 13.1 % (1.7-9.3); Neutrophils # 1.6 K/mm3 (1.8-7.8); Neutrophils % 48.8 % (37.0-80.0); Platelet Count 411 K/mm3 (142-424); Red Blood Count 3.66 M/mm3 (4.60-6.20); Red Cell Distribution Width 15.1 % (11.5-17.5); White Blood Count 3.2 K/mm3 (4.8-10.8)
[2018-02-18 07:43] LABS: Alanine Aminotransferase 8 U/L (12-78); Albumin Level 2.1 gm/dL (3.4-5.0); Albumin/Globulin Ratio 0.7 (1.1-1.8); Alkaline Phosphatase 59 U/L (46-116); Aspartate Amino Transferase 12 U/L (15-37); Bilirubin,Total 0.3 mg/dL (0.2-1.0); Blood Urea Nitrogen 0 mg/dL (7-18); Calcium 7.8 mg/dL (8.5-10.1); Carbon Dioxide 26 mmol/L (21.0-32.0); Chloride 101 mmol/L (98-107); Creatinine Clearance Estimated 62 mL/min (0-300); Creatinine,Serum 0.62 mg/dL (0.70-1.30); Estimated Glomerular Filt Rate 132 ml/min (>60); GFR (African American) 160 ML/MIN (>60); Globulin 2.9 gm/dl (1.3-3.2); Glucose 85 mg/dL (74-106); Sodium 137 mmol/L (136-145)
[2018-02-18 08:00] VITALS: BP 129/68; PULSE 66; RESP 18; TEMP 36.9; O2SAT 92
--- NOTE | 2018-02-18 08:15 | HMH.ACPN2 ---
<Tiffanie Dela Cruz - Last Filed: 02/18/18 08:15> Internal Medicine - PN: Subj *Date: 02/18/18 *Time: 08:15 Interval history: Patient states he is feeling about the same. Still with pain and diarrhea. Exam Vital signs and Labs for Last 24 Hours: Temp Pulse Resp BP Pulse Ox 98.8 F 80 14 136/80 95 02/18/18 04:00 02/18/18 04:00 02/18/18 04:00 02/18/18 04:00 02/18/18 04:00 Laboratory Results - last 24 hr 02/18/18 06:08: WBC 3.2 L D, RBC 3.66 L, Hgb 11.7 L, Hct 36.6 L, MCV 100.0 H, MCH 32.0 H, MCHC 32.0, RDW 15.1, Plt Count 411, MPV 7.6, Neut % (Auto) 48.8, Lymph % (Auto) 35.1, [place] % (Auto) 13.1 H, Eos % (Auto) 2.1, Baso % (Auto) 0.8, Neut # (Auto) 1.6 L, Lymph # (Auto) 1.1, [place] # (Auto) 0.4, Eos # (Auto) 0.1, Baso # (Auto) 0.0 I & O for Last 24 hours: Intake & Output 02/15/18 02/16/18 02/17/18 02/18/18 11:59 11:59 11:59 11:59 Intake Total 3057 / 3057 4111 / 4111 3773.333 / 3773.333 440 / 440 Output Total 150 / 150 Balance 2907 / 2907 4111 / 4111 3773.333 / 3773.333 440 / 440 Weight 125 lb Radiology Reports for the Last 24 Hours: Abd CT 1. Persistent moderate to severe thickening of the sigmoid colon with mild stranding of the pericolic fat system with colitis. 2. The small abscess adjacent to the right aspect of the sigmoid colon is less apparent. There is some soft tissue thickening in this region but the air-fluid levels no longer apparent. 3. Interval development of small bilateral pleural effusion with atelectatic changes in the lung bases and diffuse subcutaneous edema. 4. Gallbladder sludge - Constitutional no acute distress - *Routine Respiratory Exam Present: CTA bilaterally - *Routine Cardiovascular Exam Present: RRR - *Routine Abdominal Exam Present: soft, tenderness (diffuse but worse in the bilateral lower quadrants) - *Routine Extremities Exam Absent: cyanosis, clubbing, edema Assessment and Plan (1) Acute diverticulitis Current visit: Yes Status: Acute Category: Medical Code(s): K57.92 - Diverticulitis of intestine, part unspecified, without perforation or abscess without bleeding (2) Chronic ischemic colitis Current visit: Yes Status: Acute Category: Medical Code(s): K55.1 - Chronic vascular disorders of intestine (3) Hypokalemia Current visit: Yes Status: Acute Category: Medical Code(s): E87.6 - Hypokalemia (4) COPD (chronic obstructive pulmonary disease) Current visit: Yes Status: Chronic Category: Medical Code(s): J44.9 - Chronic obstructive pulmonary disease, unspecified (5) Tobacco abuse Current visit: No Status: Chronic Category: Medical Code(s): Z72.0 - Tobacco use (6) Urinary hesitancy Current visit: Yes Status: Acute Category: Medical Code(s): R39.11 - Hesitancy of micturition - Assessment and plan all Dx Assessment and Plan for all problems:: Abdominal CT shows no improvement. Patient is going to need to be transferred for further care. <Otto Hammonds - Last Filed: 02/18/18 08:22> Exam Vital signs and Labs for Last 24 Hours: Temp Pulse Resp BP Pulse Ox 98.4 F 66 18 129/68 92 L 02/18/18 08:00 02/18/18 08:00 02/18/18 08:00 02/18/18 08:00 02/18/18 08:00 Laboratory Results - last 24 hr 02/18/18 06:08: WBC 3.2 L D, RBC 3.66 L, Hgb 11.7 L, Hct 36.6 L, MCV 100.0 H, MCH 32.0 H, MCHC 32.0, RDW 15.1, Plt Count 411, MPV 7.6, Neut % (Auto) 48.8, Lymph % (Auto) 35.1, [place] % (Auto) 13.1 H, Eos % (Auto) 2.1, Baso % (Auto) 0.8, Neut # (Auto) 1.6 L, Lymph # (Auto) 1.1, [place] # (Auto) 0.4, Eos # (Auto) 0.1, Baso # (Auto) 0.0 I & O for Last 24 hours: Intake & Output 02/15/18 02/16/18 02/17/18 02/18/18 11:59 11:59 11:59 11:59 Intake Total 3057 / 3057 4111 / 4111 3773.333 / 3773.333 920 / 920 Output Total 150 / 150 Balance 2907 / 2907 4111 / 4111 3773.333 / 3773.333 920 / 920 Weight 125 lb Assessment and Plan (1) Acute diverticulitis Current visit: Yes
--- NOTE | 2018-02-18 11:54 | PC.NURSE ---
TOLD PT THAT WE HAVE [facility] ON HOLD AND WAITING FOR A BED. PT STATES THAT HE IS NOT LEAVING UNTIL HE CAN GET HIS THINGS UNDER CONTROL AT HOME WITH HIS LANDLORD.
--- NOTE | 2018-02-18 14:26 | PC.NURSE ---
PT STATES HE CANNOT GO TO [facility] TODAY. STATES THERES TOO MUCH STUFF AT HOME THAT HE HAS TO GET TAKEN CARE OF BEFORE HE CAN LEAVE AND HE NEEDS TO TALK TO HIS LANDLORD PRIOR TO GOING TO [facility]. WAITING FOR DR VILA TO CALL BACK.
--- NOTE | 2018-02-18 14:29 | PC.NURSE ---
TALKED WITH Juan Antonio KAPADIA ABOUT PT REFUSING TO LEAVE FOR [facility] TODAY. SHE IS TO TALK TO DR VILA AND GET BACK WITH ME
[2018-02-18 16:00] VITALS: BP 154/98; PULSE 87; RESP 20; TEMP 36.7; O2SAT 95
--- NOTE | 2018-02-21 09:18 | HMH.DCSUM ---
General - General Admission date:: 02/10/18 <NasraOtto hurt - 02/26/18 08:18> 02/10/18 <Tiffanie Dela Cruz - 02/21/18 09:31> Discharge date: 02/18/18 <Tiffanie Dela Cruz - 02/21/18 09:31> HPI HPI: Mr. Lu is a 62 year old white male smoker with history of COPD and colitis. Ten days ago he developed another episode of lower abdominal pressure and pain that was worse with food. He was previously admitted a few months ago for the same thing. He denies any vomiting but has had constant diarrhea. The pressure got worse until it became a 10/10 and he came to the ED. He has been unable to eat for the past 8 days and has only been drinking soft drinks. He has no primary care physician. He states he has never had a c-scope or seen GI. Further to the above history patient states that after discharge from [facility] in November, he finished the prescribed medications and his pain resolved but he has continued to have diarrhea which he states has been chronic for years. About 10 days ago, he began having low midline and LLQ pain that was worse with eating. No blood in his stools and no fever. Pain progressed until last night he could not stand it any longer and he had a friend bring him to the ER. He was indeed seen by Dr. Castellon for GI consultation during his last admission and underwent a sigmoidoscopy with biopsies and removal of one polyp. He was treated for presumed infectious colitis. His biopsies returned after he was discharged from the hospital and showed ischemic colitis. He was scheduled to see Dr. Castellon for outpt f/u on 12/28/17 but did not keep his appt stating he had no transportation. His PCR diarrhea panel was negative at last visit and also negative last night. K+ noted to be low but improved this AM. He apparently has been able to drink liquids OK and does not appear dehydrated as his BUN is normal, his urine SG is <1.005 and he is not hypotensive. CT scan shows the same area of thickening in the sigmoid colon but also showing an 18 mm fluid density adjacent to the sigmoid raising the question of a small abscess. <Tiffanie Dela Cruz - 02/21/18 09:31> Hospital Course Hospital Course: The patient was started on IV abx, pain medication, and IVF's. Considering the chronic findings on serial CTs and results of the sigmoidoscopy and biopsies during his last admission, his clinical picture is most consistent with chronic ischemic colitis. The possibility of an abscess was entertained on the most recent CT scan. Dr. Castellon was consulted. 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 There was persistent thickening of the sigmoid consistent with colitis and there was persistent small rounded fluid collection to the right of the sigmoid and possibly a small abscess. Dr. Castellon saw the patient and felt for his complicated diverticulitis?diverticular sigmoid abscess with air (microperforation), intravenous antibiotics with Levaquin and Flagyl should be continued. He wanted a repeat CT scan in 5-7 days. He felt he would need an elective sigmoid resection. He did not feel he had mesenteric ischemia and he recommended smoking cessation and aspirin. Dr. Mendoza saw the patient in consultation and felt if the patient elected to have surgery, it would need to be completed at a tertiary care center secondary to his multiple comorbid conditions (COPD/vascular disease). The patient continued with pain throughout his admission. He required IV pain management and was only able to drink Mt. Dew. The patient did have a repeat CT scan showing very little improvement. Dr. Hammonds spoke with about transfer and the patient was accepted and transferred for further care and possible surgery. <Tiffanie Dela Cruz - 02/21/18 09:31> Objective Vital signs: Temp Pulse Resp BP Pulse Ox 98.1 F 87 20 154/98 95 02/18/18 16:00 02/18/18 16:00 02/18/18 16:00 02/18/18 16:00 02/18/18 16:00 <Nor
--- NOTE | 2018-02-21 09:31 | P.DS_ITS ---
General - General Admission date:: 02/10/18 <NasraOtto hurt - 02/26/18 08:18> 02/10/18 <Tiffanie Dela Cruz - 02/21/18 09:31> Discharge date: 02/18/18 <Tiffanie Dela Cruz - 02/21/18 09:31> HPI HPI: Mr. Lu is a 62 year old white male smoker with history of COPD and colitis. Ten days ago he developed another episode of lower abdominal pressure and pain that was worse with food. He was previously admitted a few months ago for the same thing. He denies any vomiting but has had constant diarrhea. The pressure got worse until it became a 10/10 and he came to the ED. He has been unable to eat for the past 8 days and has only been drinking soft drinks. He has no primary care physician. He states he has never had a c-scope or seen GI. Further to the above history patient states that after discharge from [facility] in November, he finished the prescribed medications and his pain resolved but he has continued to have diarrhea which he states has been chronic for years. About 10 days ago, he began having low midline and LLQ pain that was worse with eating. No blood in his stools and no fever. Pain progressed until last night he could not stand it any longer and he had a friend bring him to the ER. He was indeed seen by Dr. Castellon for GI consultation during his last admission and underwent a sigmoidoscopy with biopsies and removal of one polyp. He was treated for presumed infectious colitis. His biopsies returned after he was discharged from the hospital and showed ischemic colitis. He was scheduled to see Dr. Castellon for outpt f/u on 12/28/17 but did not keep his appt stating he had no transportation. His PCR diarrhea panel was negative at last visit and also negative last night. K+ noted to be low but improved this AM. He apparently has been able to drink liquids OK and does not appear dehydrated as his BUN is normal, his urine SG is <1.005 and he is not hypotensive. CT scan shows the same area of thickening in the sigmoid colon but also showing an 18 mm fluid density adjacent to the sigmoid raising the question of a small abscess. <Tiffanie Dela Cruz - 02/21/18 09:31> Hospital Course Hospital Course: The patient was started on IV abx, pain medication, and IVF's. Considering the chronic findings on serial CTs and results of the sigmoidoscopy and biopsies during his last admission, his clinical picture is most consistent with chronic ischemic colitis. The possibility of an abscess was entertained on the most recent CT scan. Dr. Castellon was consulted. 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 There was persistent thickening of the sigmoid consistent with colitis and there was persistent small rounded fluid collection to the right of the sigmoid and possibly a small abscess. Dr. Castellon saw the patient and felt for his complicated diverticulitis?diverticular sigmoid abscess with air (microperforation), intravenous antibiotics with Levaquin and Flagyl should be continued. He wanted a repeat CT scan in 5-7 days. He felt he would need an elective sigmoid resection. He did not feel he had mesenteric ischemia and he recommended smoking cessation and aspirin. Dr. Mendoza saw the patient in consultation and felt if the patient elected to have surgery, it would need to be completed at a tertiary care center secondary to his multiple comorbid conditions (COPD/vascular disease). The patient continued with pain throughout his admission. He required IV pain management and was only able to drink Mt. Dew. The patient did have a repeat CT scan showing very little improvement. Dr. Hammonds spoke with about transfer and the patient was accepted and transferred for further care and tammy
== END 2018-02-18 16:47 | disposition short-term general hospital (02) | DRG 391 ==
LOC: ER 19:10 → 2ND 20:54
PROVIDERS: Surgery; Admitting Provider Family Medicine; Emergency Provider Emergency Medicine; Family Provider Emergency Medicine; Visit Provider Family Medicine
DX: K57.32 Diverticulitis of large intestine without perforation or abscess without bleeding (principal); K55.049 Acute infarction of large intestine, extent unspecified; J44.9 Chronic obstructive pulmonary disease, unspecified; I25.10 Atherosclerotic heart disease of native coronary artery without angina pectoris; I10 Essential (primary) hypertension; Z72.0 Tobacco use; E87.6 Hypokalemia
CPT/HCPCS: 36415; 74174; 74177; 80048; 80053; 81001; 83605; 83690; 83735; 85025; 85378; 87040; 87507; 96365; 96367; 96375; 96376; 99284; G0378; J1956; J2405; Q9967